=== PATIENT | female | born 1950 | race Caucasian/White ===

== ENCOUNTER 2016-08-02 12:03 | Day surgery (SDC) | payer MEDICARE, MEDICAID ==
[~2016-08-02 12:03] MED LIST: Aspirin Ec PO; BACL20TA PO; CARD120C4 PO; CYCL1TAB29 PO; LACTG PO; LEVO88TA2 PO; LIPI20TA PO; TOPA25TA8 PO; ULTR50TA5 PO
[2016-08-02] MEDS ORDERED: MUPIROCIN 2% OINT 1 APPLIC/GM SYR NASAL SCH (12:30)
[2016-08-02] MEDS ORDERED: NS 1000 ML IV SCH (12:30)
[2016-08-02] MEDS ORDERED: POVIDONE IODINE 5% (ANTISEPSIS KIT) 4 APPLICATIONS EACH NARE SCH (12:30)
[2016-08-02] MEDS ORDERED: CHLORHEXIDINE GLUCONATE 2 % 1 PACK (2 CLOTHS) TOP SCH (12:30)
[2016-08-02] MEDS ORDERED: VANCOMYCIN 1000 MG/NS 250 ML IV SCH ×2 (12:30)
[2016-08-02] MEDS ORDERED: MIDAZOLAM HCL 5 MG/5 ML VIAL ONE (12:47)
[2016-08-02] MEDS ORDERED: MELA1TAB18 PO (12:48)
[2016-08-02] MEDS ORDERED: FURO20TA PO (12:48)
[2016-08-02] MEDS ORDERED: MULT-135 PO (12:48)
[2016-08-02] MEDS ORDERED: LEVO75TA3 PO (12:48)
[2016-08-02] MEDS ORDERED: GABA400C5 PO (12:48)
[2016-08-02] MEDS ORDERED: TOPI1TAB97 PO (12:48)
[2016-08-02] MEDS ORDERED: ELIT100T2 PO (12:48)
[2016-08-02] MEDS ORDERED: ACET500C PO (12:48)
--- NOTE | 2016-08-02 15:20 | MA ---
cc: PAUL JONES MD, BETH A. MD DATE: 08/02/2016 PROCEDURE Loop recorder insertion. PREPROCEDURE DIAGNOSIS CVA/arrhythmia. POSTPROCEDURE DIAGNOSIS Successful loop recorder insertion. DESCRIPTION OF PROCEDURE The patient was brought to the DOC unit in the postabsorptive state. After informed consent was obtained a [employer]tronic Reveal LINQ loop recorder was inserted subcutaneously in the left chest. The patient tolerated the procedure well without any apparent complications. Tachybrady pause and atrial fibrillation detection was enabled. The initial R-wave was 0.2 mV. The serial number was [id number]. Paul Jones MD STEPHANIE/BT /3:11 PM /3:16 PM
== END 2016-08-02 17:45 | disposition home or self-care (01) ==
LOC: HDIC 12:03 → HDOC 12:03
PROVIDERS: ATTEND Nuclear Medicine Nuclear Cardiology
DX: I47.1 Supraventricular tachycardia (principal); I63.9 Cerebral infarction, unspecified; I11.9 Hypertensive heart disease without heart failure
CPT/HCPCS: 33282; C1764; J2250; J3010; J3370; J7030; J7050

== ENCOUNTER → 2016-09-16 | Outpatient (CLI) | payer MEDICARE, MEDICAID ==
[~2016-09-16] MED LIST changes: +ACET500C PO; -BACL20TA PO; +ELIT100T2 PO; +FURO20TA PO; +GABA400C5 PO; -LACTG PO; +LEVO75TA3 PO; -LEVO88TA2 PO; +MAGN100T2 PO; +MELA1TAB18 PO; +MULT-135 PO; -TOPA25TA8 PO; +TOPI1TAB97 PO; +TYLE325T PO
== END ==
LOC: CLAB 10:22
PROVIDERS: ATTEND Internal Medicine Interventional Cardiology
DX: E78.5 Hyperlipidemia, unspecified (principal); I48.91 Unspecified atrial fibrillation
CPT/HCPCS: 36415; 84439; 84443

== ENCOUNTER 2016-12-11 13:00 | Emergency (ER) | payer MEDICARE, MEDICAID ==
[~2016-12-11] VITALS: Ht 162.6 cm; Wt 86.0 kg
[~2016-12-11 13:00] MED LIST changes: -MAGN100T2 PO; -TYLE325T PO
[2016-12-11 13:02] VITALS: BP 145/90; PULSE 99; RESP 24; TEMP 97.9; O2SAT 95
--- NOTE | 2016-12-11 13:13 | PD ---
Physical Exam Time Seen by Provider: 13:10 Narrative 66yo F c/o R shoulder and R buttock pain after slipping on wet floor last night. Denies hitting head, LOC. Is on Warfarin for afib. Denies vomiting. Ambulatory in triage. Patient seen in triage. VS reviewed. Awaiting bed placement. Data Data Last Documented VS Vital Signs Date Time Temp Pulse Resp B/P Pulse Ox O2 Delivery O2 Flow Rate FiO2 12/11/16 13:02 97.9 99 24 145/90 95 Room Air [facility] Supervised Visit with ALEJANDRA: Ritika Hernandez December 11, 2016 13:13
[2016-12-11] MEDS ORDERED: TYLE325T PO (14:21)
[2016-12-11] MEDS ORDERED: MAGN100T2 PO (14:22)
--- NOTE | 2016-12-11 14:42 | PD ---
HPI Chief Complaint: Injury Time Seen by Provider: 14:05 Travel History International Travel<30 days: No Contact w/Intl Traveler<30days: No Traveled to known affect area: No History of Present Illness HPI This 66-year-old woman who slipped and fell on a wet tile floor last night. She hit her head and then landed on her right side. Doesn't think she had any LOC. Biggest complaint is her right elbow and shoulder pain, pain in her right hip. She is a little bit neck and back pain as well. She has chronic pain in the right shoulder limited range of motion. No other complaints. History Past Medical History Narrative Medical Asthma To daily Hypothyroidism Hypertension Fibromyalgia Depression CVA A. fib, on warfarin Tetanus Vaccination: Unknown Influenza Vaccination: Yes Menopausal: Yes : 6 Para: 4 Social History Alcohol Use: Yes (OCCASIONALLY) Tobacco Use: No Allergies-Medications (Allergen,Severity, Reaction): Coded Allergies: Azithromycin (Verified Allergy, Severe, Shortness of Breath, 12/11/16) Benadryl (Unverified Allergy, Severe, 12/11/16) PT STATES HIVES, DIFFICULTY BREATHING Cephalexin (Verified Allergy, Severe, Itching, 12/11/16) Doxycycline (Verified Allergy, Severe, Itching, 12/11/16) Ibuprofen (Verified Allergy, Severe, Rash, 12/11/16) Penicillin (Verified Allergy, Severe, Shortness of Breath, 12/11/16) Sulfa (Verified Allergy, Severe, Rash, 12/11/16) Tetracycline (Verified Allergy, Severe, Shortness of Breath, 12/11/16) Vilanterol (Verified Allergy, Severe, Dizziness, 12/11/16) Fluticasone (Verified Adverse Reaction, Severe, Dizziness, 12/11/16) Ciprofloxacin (Verified Adverse Reaction, Intermediate, Nausea/Vomiting, ) Uncoded Allergies: BROMIDE (Allergy, Severe, Shortness of Breath, 06/21/14) FUROATE (Allergy, Severe, Shortness of Breath, 06/21/14) MONOHYDRATE (Allergy, Severe, Itching, 06/21/14) TIOTROPIUM (Allergy, Severe, Dizziness, 06/21/14) TRIFENATATE (Allergy, Severe, Shortness of Breath, 06/21/14) Reported Meds & Prescriptions Reported Meds & Active Scripts Active Cardizem CD 24 HR (Diltiazem CD 24 HR) 120 Mg Caper 120 Mg PO DAILY Reported Magnesium Citrate 100 Mg Tab 100 Mg PO DAILY PRN Tylenol (Acetaminophen) 325 Mg Tab 325 Mg PO Q6H PRN Melatonin 10 Mg Tab 10 Mg PO HS PRN Levothyroxine (Levothyroxine Sodium) 75 Mcg Tab 75 Mcg PO DAILY Gabapentin 400 Mg Cap 400 Cap PO BID Furosemide 20 Mg Tab 20 Mg PO BID Flexeril (Cyclobenzaprine HCl) 10 Mg Tab 10 Mg PO TID Review of Systems Except as stated in HPI: all other systems reviewed are Neg Physical Exam Narrative GENERAL: Well-appearing 66 year-old woman, no acute distress. SKIN: Focused skin assessment warm/dry. HEAD: Normocephalic. No ecchymosis bruising or evidence of head injury. EYES: Pupils equal and round. No scleral icterus. No injection or drainage. ENT: No nasal bleeding or discharge. Mucous membranes pink and moist. NECK: Some mild tenderness, full range of motion. Doesn't guard the neck at all. CARDIOVASCULAR: Regular rate and rhythm. No murmur appreciated. RESPIRATORY: No accessory muscle use. Clear to auscultation. Breath sounds equal bilaterally. GASTROINTESTINAL: Abdomen soft, non-tender, nondistended. Hepatic and splenic margins not palpable. MUSCULOSKELETAL: No obvious deformities. She has some old surgical scars in the right shoulder. She is limited range of motion of the right shoulder due to pain. No obvious swelling ecchymosis or other evidence of injury. She is a small abrasion on the right elbow but also moves it freely. She does have some tenderness in the right elbow. She has some mild tenderness throughout the lower back. She also some pain and tenderness on the lateral thigh on the right. NEUROLOGICAL: Awake and alert. No obvious cranial nerve deficits. Motor grossly within normal limits. Normal speech. PSYCHIATRIC: Appropriate mood and affect; insight and judgment normal. Data Data Last Documented VS Vital Signs Date Time Temp Pulse Resp B/P Pulse Ox O2 Delivery O2 Flow Rate FiO2 12/11/16 15:03 97.9 94 18 159/[address] Brain W/O Iv Contrast(Rout) (12/11/16 ) Shoulder, Complete (>2vws) (12/11/16 ) Humerus (Min 2vws) (12/11/16 ) Hip, Uni(Ap&Lat) W Ap Pelvis (12/11/16 ) [facility] Medical Decision Making Medical Screen Exam Complete: Yes Emergency Medical Condition: Yes Interpretation(s) CT head: Negative Right shoulder: Glenohumeral joint arthrosis and impingement type change of the proximal humerus. Possible proximal humerus fracture. Moderate before meals joint arthrosis. No significant change. Right humerus: Negative Right hip: Negative Differential Diagnosis Head injury, shoulder injury, other Narrative Course Medical decision making 66 year-old woman slip and fall, chronic pain from fibromyalgia, now worsening pain in her right shoulder and right hip. Looks well. She's on warfarin. We' ll check CT head. I don't think she needs any imaging of her neck or back. We' ll check an x-ray of the shoulder, and x-ray of the hip. Diagnosis Primary Impression: Fall Additional Impressions: Right shoulder pain Right hip pain Additional Instructions: Continue current medications. Follow-up with her primary doctor in the next 2-4 days. Med/Other Pt SpecificInfo: No Change to Meds Disposition: 01 DISCHARGE HOME Condition: Stable Isiah Pinto MD December 11, 2016 14:42
[2016-12-11 15:03] VITALS: BP 159/87; PULSE 94; RESP 18; TEMP 97.9; O2SAT 92
--- NOTE | 2016-12-11 15:39 | RADRPT ---
EXAM DATE/TIME: 12/11/2016 15:12 [facility] COMPARISON: CT BRAIN W/O CONTRAST, June 30, 2016, 17:23. INDICATIONS : Patient fell hitting back of head last night. RADIATION DOSE: 56.77 CTDIvol (mGy) MEDICAL HISTORY : Cardiovascular disease. Seizures. Hypertension.diabetic SURGICAL HISTORY : Appendectomy. Cholecystectomy. ENCOUNTER: Initial ACUITY: 1 day PAIN SCALE: 7/10 LOCATION: cranial TECHNIQUE: Multiple contiguous axial images were obtained of the head. Using automated exposure control and adj ustment of the mA and/or kV according to patient size, radiation dose was kept as low as reasonably a chievable to obtain optimal diagnostic quality images. FINDINGS: CEREBRUM: The ventricles are normal for age. No evidence of midline shift, mass lesion, hemorrhage or acute in farction. No extra-axial fluid collections are seen. Hypodensities in the periventricular white ky er indicating chronic ischemic change POSTERIOR FOSSA: The cerebellum and brainstem are intact. The 4th ventricle is midline. The cerebellopontine angle i s unremarkable. EXTRACRANIAL: The visualized portion of the orbits is intact. SKULL: The calvaria is intact. No evidence of skull fracture. CONCLUSION: No acute intracranial findings. Kavon Carney MD on December 11, 2016 at 15:36 Board Certified Radiologist. This report was verified electronically.
--- NOTE | 2016-12-11 15:48 | RADRPT ---
EXAM DATE/TIME: 12/11/2016 14:42 [facility] COMPARISON: No previous studies available for comparison. INDICATIONS : Right hip pain; fall lastnight. MEDICAL HISTORY : None. SURGICAL HISTORY : None. ENCOUNTER: Initial ACUITY: 1 day PAIN SCORE: 7/10 LOCATION: Right hip FINDINGS: 3 views of the right hip and pelvis. Bone alignment within normal limits. No evidence of fracture. N o evidence of joint narrowing. Moderate-sized enthesophyte at the greater trochanter on the right. CONCLUSION: No evidence of acute fracture. Kavon Carney MD on December 11, 2016 at 15:45 Board Certified Radiologist. This report was verified electronically.
--- NOTE | 2016-12-11 15:52 | RADRPT ---
EXAM DATE/TIME: 12/11/2016 14:45 [facility] COMPARISON: SHOULDER RIGHT COMPLETE (>2VWS), May 30, 2015, 20:31. INDICATIONS : Right shoulder pain; fall lastnight. MEDICAL HISTORY : None. SURGICAL HISTORY : Right shoulder repair. ENCOUNTER: Initial ACUITY: 1 day PAIN SCORE: 7/10 LOCATION: Right shoulder. FINDINGS: 4 views of the right shoulder. Bone alignment is within normal limits. Small glenohumeral joint osteo phytes. No evidence of acute fracture. Mixed lucency and sclerosis of the proximal humerus suggesting chronic impingement type change. Corticated ossicles posterior to the glenohumeral joint unchanged. Moderate arthritic findings of the acromioclavicular joint. CONCLUSION: 1. Glenohumeral joint arthrosis and impingement type change of the proximal humerus. 2. Possible old proximal humerus fracture. 3. Moderate acromioclavicular joint arthrosis. 4. No significant interval change from 05/30/2015 study. Kavon Carney MD on December 11, 2016 at 15:46 Board Certified Radiologist. This report was verified electronically.
--- NOTE | 2016-12-11 15:53 | RADRPT ---
EXAM DATE/TIME: 12/11/2016 14:47 [facility] COMPARISON: No previous studies available for comparison. INDICATIONS : Right humerus pain; fall lastnight. MEDICAL HISTORY : None. SURGICAL HISTORY : Right shoulder repair. ENCOUNTER: Initial ACUITY: 1 day PAIN SCORE: 7/10 LOCATION: Right humerus. FINDINGS: 3 views of the right humerus. Bone alignment within normal limits. No evidence of acute fracture. Co rticated 2.9 cm ossicle posterior to the humeral head may represent intra-articular osteochondral bod y. CONCLUSION: No evidence of acute fracture. Kavon Carney MD on December 11, 2016 at 15:50 Board Certified Radiologist. This report was verified electronically.
== END 2016-12-11 16:20 | disposition home or self-care (01) ==
LOC: NEPD 13:00
DX: M25.511 Pain in right shoulder (principal); M25.551 Pain in right hip; I48.91 Unspecified atrial fibrillation; Z79.01 Long term (current) use of anticoagulants; E03.9 Hypothyroidism, unspecified; I10 Essential (primary) hypertension; M79.7 Fibromyalgia; J45.909 Unspecified asthma, uncomplicated; S50.311A Abrasion of right elbow, initial encounter; W01.0XXA Fall on same level from slipping, tripping and stumbling without subsequent striking against object, initial encounter; Y93.9 Activity, unspecified; Y92.9 Unspecified place or not applicable; Y99.8 Other external cause status
CPT/HCPCS: 70450; 73030; 73060; 73502; 99284

== ENCOUNTER 2017-03-06 13:14 | Inpatient (IN) | payer MEDICARE, MEDICAID ==
[~2017-03-06] VITALS: Ht 160 cm; Wt 92.1 kg
[~2017-03-06 13:14] MED LIST changes: -ACET500C PO; -Aspirin Ec PO; -ELIT100T2 PO; -LIPI20TA PO; +MAGN100T2 PO; -MULT-135 PO; -TOPI1TAB97 PO; +TYLE325T PO; -ULTR50TA5 PO
[2017-03-06 13:22] VITALS: BP 180/98; PULSE 114; RESP 18; TEMP 98.4; O2SAT 98
--- NOTE | 2017-03-06 13:27 | PD ---
Physical Exam Time Seen by Provider: 13:24 Narrative 66yo F c/o "can't see properly" out of her left eye, peripheral vision, since 1230 today. + left eye pain and ROBERSON. Denies vomiting. Denies focal deficits or weakness. Patient seen in triage. VS reviewed. Awaiting bed placement. Data Data Last Documented VS Vital Signs Date Time Temp Pulse Resp B/P (MAP) Pulse Ox O2 Delivery O2 Flow Rate FiO2 03/06/17 13:22 98.4 114 18 180/98 (125) 98 MDM Supervised Visit with ALEJANDRA: Ritika Hernandez Mar 06, 2017 13:27
--- NOTE | 2017-03-06 13:35 | PD ---
HPI Chief Complaint: Neuro Symptoms/ Deficits Time Seen by Provider: 13:35 Travel History International Travel<30 days: No Contact w/Intl Traveler<30days: No Traveled to known affect area: No History of Present Illness HPI 66-year-old female with history as remote CVA in 2004, A. fib, on Coumadin, hypertension, diabetes presents to the emergency department for evaluation of peripheral vision changes of the left eye. Patient states symptoms began around noon today. She had flashing and overlaying colors with limited vision. She states she sat there and blink her eyes a few times and the visual disturbances resolved however she feels as though her peripheral vision is still decreased. She states she had an associated left-sided headache. She denies any nausea or vomiting. No other focal deficits or weakness. No chest tightness. Patient states that her INR has been subtherapeutic. She has no other symptoms to report this time. PFSH Past Medical History Hx Anticoagulant Therapy: Yes (COUMADIN) Arthritis: Yes Asthma: Yes Blood Disorders: No Anxiety: No Depression: Yes Heart Rhythm Problems: Yes (LOOP RECORDER/DR RICE) Cancer: No Cardiac Catheterization: No Cardiovascular Problems: Yes (AFIB, HTN) High Cholesterol: Yes Chemotherapy: No Chest Pain: No Congestive Heart Failure: No COPD: No Cerebrovascular Accident: Yes (2004) Diabetes: Yes Patient Takes Glucophage: No Diminished Hearing: No Endocrine: Yes Gastrointestinal Disorders: No Genitourinary: No Hiatal Hernia: Yes Heparin Induced Thrombocytopen: No Herniated Disk: No (SCIATICA/BULGING DISC LOWER BACK HX) Hypertension: Yes Immune Disorder: Yes Implanted Vascular Access Dvce: No Musculoskeletal: Yes Neurologic: Yes (STROKE IN THE PAST-05) Psychiatric: Yes Reproductive: No Respiratory: Yes Pneumonia: Yes Seizures: Yes Sleep Apnea: No Thyroid Disease: Yes Menopausal: Yes : 6 Para: 4 Miscarriage: 2 Tubal Ligation: Yes Past Surgical History Abdominal Surgery: Yes (HIATAL HERNIA REPAIR) Appendectomy: Yes Cholecystectomy: Yes Coronary Artery Bypass Graft: No Gynecologic Surgery: Yes (RIGHT OVARY REMOVED) Hysterectomy: No Other Surgery: Yes (LUIZ CARP RELEASE, L OVARY, R SHOULDER,R KNEE, R SHOULDER REPAIR) Family History Family Myocardial Infarction: Yes Social History Alcohol Use: Yes (OCCASIONALLY) Tobacco Use: No Substance Use: No Allergies-Medications (Allergen,Severity, Reaction): Coded Allergies: Sulfa (Sulfonamide Antibiotics) (Unverified Allergy, Severe, Rash, 03/06/17 ) azithromycin (Unverified Allergy, Severe, Shortness of Breath, 03/06/17) cephalexin (Unverified Allergy, Severe, Itching, 03/06/17) diphenhydramine (Unverified Allergy, Severe, 03/06/17) PT STATES HIVES, DIFFICULTY BREATHING doxycycline (Unverified Allergy, Severe, Shortness of Breath, 03/06/17) ibuprofen (Unverified Allergy, Severe, Rash, 03/06/17) minocycline (Unverified Allergy, Severe, Shortness of Breath, 03/06/17) penicillin G (Unverified Allergy, Severe, Shortness of Breath, 03/06/17) tigecycline (Unverified Allergy, Severe, Shortness of Breath, 03/06/17) vilanterol (Unverified Allergy, Severe, Dizziness, 03/06/17) fluticasone (Unverified Adverse Reaction, Severe, Dizziness, 03/06/17) fluticasone furoate (Unverified Adverse Reaction, Severe, Dizziness, ) salmeterol (Unverified Adverse Reaction, Severe, Dizziness, 03/06/17) ciprofloxacin (Unverified Adverse Reaction, Intermediate, Nausea/Vomiting , 03/06/17) Uncoded Allergies: BROMIDE (Allergy, Severe, Shortness of Breath, 06/21/14) FUROATE (Allergy, Severe, Shortness of Breath, 06/21/14) MONOHYDRATE (Allergy, Severe, Itching, 06/21/14) TIOTROPIUM (Allergy, Severe, Dizziness, 06/21/14) TRIFENATATE (Allergy, Severe, Shortness of Breath, 06/21/14) Reported Meds & Prescriptions Reported Meds & Active Scripts Active Reported Warfarin 5 Mg Tab 5 Mg PO DAILY Warfarin 7.5 Mg Tab 7.5 Mg PO DAILY Magnesium Citrate 100 Mg Tab 100 Mg PO DAILY PRN Tylenol (Acetaminophen) 325 Mg Tab 325 Mg PO Q6H PRN Melatonin 10 Mg Tab 10 Mg PO HS PRN Levothyroxine (Levothyroxine Sodium) 75 Mcg Tab 75 Mcg PO DAILY Gabapentin 400 Mg Cap 400 Cap PO BID Furosemide 20 Mg Tab 20 Mg PO BID Flexeril (Cyclobenzaprine HCl) 10 Mg Tab 10 Mg PO TID Review of Systems Except as stated in HPI: all other systems reviewed are Neg Physical Exam Narrative GENERAL: Well-nourished female patient, in no acute distress. SKIN: Focused skin assessment warm/dry. HEAD: Atraumatic. Normocephalic. EYES: Pupils equal and round. No scleral icterus. No injection or drainage. EOMI. PERRLA. On confrontation tests, patient's peripheral vision is limited in the distal mid to far peripheral field of vision of the left eye. Otherwise within normal limits. Sandor-Pen pressures left eye 11, 11, 10, right eye 13, 11 , 10 ENT: No nasal bleeding or discharge. Mucous membranes pink and moist. NECK: Trachea midline. No JVD. CARDIOVASCULAR: Regular rate and rhythm. No murmur appreciated. RESPIRATORY: No accessory muscle use. Clear to auscultation. Breath sounds equal bilaterally. GASTROINTESTINAL: Abdomen soft, non-tender, nondistended. Hepatic and splenic margins not palpable. MUSCULOSKELETAL: No obvious deformities. No clubbing. No cyanosis. No edema. Equal strength bilateral extremities. Negative pronator drift. NEUROLOGICAL: Awake and alert. No obvious cranial nerve deficits except for subjective sensation alteration on the left nasal fold and left lip.. Motor grossly within normal limits. Normal speech. PSYCHIATRIC: Appropriate mood and affect; insight and judgment normal. Data Data Last Documented VS Vital Signs Date Time Temp Pulse Resp B/P (MAP) Pulse Ox O2 Delivery O2 Flow Rate FiO2 03/06/17 13:54 99 03/06/17 13:22 98.4 114 18 Orders Orders Electrocardiogram (03/06/17 13:36) Prothrombin Time / Inr (Pt) (03/06/17 13:36) Act Partial Throm Time (Ptt) (03/06/17 13:36) Complete Blood Count With Diff (03/06/17 13:36) Basic Metabolic Panel (Bmp) (03/06/17 13:36) Urinalysis - C+S If Indicated (03/06/17 13:36) Ct Brain W/O Iv Contrast(Rout) (03/06/17 13:36) Ecg Monitoring (03/06/17 13:36) Iv Access Insert/Monitor (03/06/17 13:36) Oximetry (03/06/17 13:36) Sodium Chloride 0.9% Flush (Ns Flush) (03/06/17 13:45) Westergren Sedimentation Rate (03/06/17 13:36) ^ Other Nursing Orders (03/06/17 13:36) Proparacaine 0.5% Opth Soln (Alcaine 0.5 (03/06/17 13:45) Admit Order (Ed Use Only) (03/06/17 16:27) Labs Laboratory Tests Test 03/06/17 13:40 White Blood Count 8.7 TH/MM3 Red Blood Count 5.06 MIL/MM3 Hemoglobin 14.9 GM/DL Hematocrit 45.7 % Mean Corpuscular Volume 90.2 FL Mean Corpuscular Hemoglobin 29.4 PG Mean Corpuscular Hemoglobin Concent 32.6 % Red Cell Distribution Width 12.6 % Platelet Count 246 TH/MM3 Mean Platelet Volume 8.1 FL Neutrophils (%) (Auto) 47.5 % Lymphocytes (%) (Auto) 42.2 % Monocytes (%) (Auto) 7.7 % Eosinophils (%) (Auto) 2.1 % Basophils (%) (Auto) 0.5 % Neutrophils # (Auto) 4.1 TH/MM3 Lymphocytes # (Auto) 3.7 TH/MM3 Monocytes # (Auto) 0.7 TH/MM3 Eosinophils # (Auto) 0.2 TH/MM3 Basophils # (Auto) 0.0 TH/MM3 CBC Comment DIFF FINAL Differential Comment Erythrocyte Sedimentation Rate 16 mm/hr Prothrombin Time 18.1 SEC Prothromb Time International Ratio 1.6 RATIO Activated Partial Thromboplast Time 34.9 SEC Blood Urea Nitrogen 16 MG/DL Creatinine 1.16 MG/DL Random Glucose 158 MG/DL Calcium Level 9.7 MG/DL Sodium Level 139 MEQ/L Potassium Level 3.6 MEQ/L Chloride Level 104 MEQ/L Carbon Dioxide Level 27.7 MEQ/L Anion Gap 7 MEQ/L Estimat Glomerular Filtration Rate 47 ML/MIN [facility] Medical Decision Making Medical Screen Exam Complete: Yes Emergency Medical Condition: Yes Medical Record Reviewed: Yes Differential Diagnosis TIA versus CVA versus electrolyte abnormality versus neuralgia versus migraine with or without aura versus diabetic retinopathy versus temporal arteritis versus acute glaucoma Narrative Course 66-year-old female presents to emergency department for evaluation. Patient is reporting left-sided headache with left-sided peripheral visual loss. On confrontation test, patient does have peripheral vision except in the far peripheral region. She has subjective numbness and tingling on the left nasal fold and left lip. Otherwise cranial nerves are without acute abnormality. Pronator drift is negative. Patient does have history of TIA and CVA. Based on assessment, resolution of complete peripheral blindness based on examination , associated headache, use of anticoagulation therapy, stroke alert was not called. Laboratory Tests Test 03/06/17 13:40 White Blood Count 8.7 TH/MM3 Red Blood Count 5.06 MIL/MM3 Hemoglobin 14.9 GM/DL Hematocrit 45.7 % Mean Corpuscular Volume 90.2 FL Mean Corpuscular Hemoglobin 29.4 PG Mean Corpuscular Hemoglobin Concent 32.6 % Red Cell Distribution Width 12.6 % Platelet Count 246 TH/MM3 Mean Platelet Volume 8.1 FL Neutrophils (%) (Auto) 47.5 % Lymphocytes (%) (Auto) 42.2 % Monocytes (%) (Auto) 7.7 % Eosinophils (%) (Auto) 2.1 % Basophils (%) (Auto) 0.5 % Neutrophils # (Auto) 4.1 TH/MM3 Lymphocytes # (Auto) 3.7 TH/MM3 Monocytes # (Auto) 0.7 TH/MM3 Eosinophils # (Auto) 0.2 TH/MM3 Basophils # (Auto) 0.0 TH/MM3 CBC Comment DIFF FINAL Differential Comment Erythrocyte Sedimentation Rate 16 mm/hr Prothrombin Time 18.1 SEC Prothromb Time International Ratio 1.6 RATIO Activated Partial Thromboplast Time 34.9 SEC Blood Urea Nitrogen 16 MG/DL Creatinine 1.16 MG/DL Random Glucose 158 MG/DL Calcium Level 9.7 MG/DL Sodium Level 139 MEQ/L Potassium Level 3.6 MEQ/L Chloride Level 104 MEQ/L Carbon Dioxide Level 27.7 MEQ/L Anion Gap 7 MEQ/L Estimat Glomerular Filtration Rate 47 ML/MIN Last Impressions Head CT 03/06/17 1336 Signed Impressions: Service Date/Time: February 14:46 - CONCLUSION: 1. No acute intracranial abnormality identified. 2. Stable compared to previous dated 12/11/16. Eric Fields MD I have discussed the patient my attending physician who agrees the patient would benefit from further evaluation of these symptoms/TIA workup. I discussed the patient with Dr. Lai. Patient will be admitted at this time. Judith Barber Mar 06, 2017 13:35
[2017-03-06] MEDS ORDERED: WARF-23 PO (13:38)
[2017-03-06] MEDS ORDERED: WARF-21 PO (13:38)
[2017-03-06] MEDS ORDERED: PROPARACAINE HCL 0.5% OPHT SOLN 15 ML BTL EACH EYE ONE (13:45)
[2017-03-06] MEDS ORDERED: SODIUM CHLORIDE 0.9% FLUSH 10 ML FLUSH IVF PRN (13:45)
[2017-03-06 13:54] VITALS: O2SAT 99
[2017-03-06 14:05] LABS: AUTOMATED NEUTROPHIL # 4.1 TH/MM3 (1.8-7.7); BASOPHIL % 0.5 % (0.0-2.0); EOSINOPHIL # 0.2 TH/MM3 (0-0.4); EOSINOPHIL % 2.1 % (0.0-4.0); HEMATOCRIT 45.7 % (35.0-46.0); HEMO FLAGS DIFF FINAL; LYMPH % 42.2 % (9.0-44.0); LYMPHOCYTE # 3.7 TH/MM3 (1.0-4.8); MEAN CELL VOLUME 90.2 FL (80.0-100.0); MEAN CORPUSCULAR HEMOGLOBIN 29.4 PG (27.0-34.0); MEAN CORPUSCULAR HGB CONC 32.6 % (32.0-36.0); MONO % 7.7 % (0.0-8.0); NEUT % 47.5 % (16.0-70.0); PLATELET COUNT 246 TH/MM3 (150-450); RED BLOOD COUNT 5.06 MIL/MM3 (4.00-5.30); RED CELL DISTRIBUTION WIDTH 12.6 % (11.6-17.2); WHITE BLOOD COUNT 8.7 TH/MM3 (4.0-11.0)
[2017-03-06 14:17] LABS: APTT (PATIENT) 34.9 SEC (24.3-30.1); INTERNATIONAL NORMALIZED RATIO 1.6 RATIO; PROTHROMBIN TIME - PATIENT 18.1 SEC (9.8-11.6)
[2017-03-06 14:31] LABS: BICARBONATE 27.7 MEQ/L (21.0-32.0); POTASSIUM 3.6 MEQ/L (3.5-5.1)
--- NOTE | 2017-03-06 15:13 | RADRPT ---
EXAM DATE/TIME: 03/06/2017 14:46 [facility] COMPARISON: CT BRAIN W/O CONTRAST, December 11, 2016, 15:12. INDICATIONS : Vision loss on left lateral side with pain. RADIATION DOSE: 56.77 CTDIvol (mGy) MEDICAL HISTORY : Seizures. Hypertension. AFIB SURGICAL HISTORY : None. ENCOUNTER: Initial ACUITY: 1 day PAIN SCALE: 2/10 LOCATION: Left lateral eye TECHNIQUE: Multiple contiguous axial images were obtained of the head. Using automated exposure control and adj ustment of the mA and/or kV according to patient size, radiation dose was kept as low as reasonably a chievable to obtain optimal diagnostic quality images. DICOM format image data is available electro nically for review and comparison. FINDINGS: CEREBRUM: The ventricles are normal for age. No evidence of midline shift, mass lesion, hemorrhage or acute in farction. No extra-axial fluid collections are seen. POSTERIOR FOSSA: The cerebellum and brainstem are intact. The 4th ventricle is midline. The cerebellopontine angle i s unremarkable. EXTRACRANIAL: The visualized portion of the orbits is intact. SKULL: The calvaria is intact. No evidence of skull fracture. CONCLUSION: 1. No acute intracranial abnormality identified. 2. Stable compared to previous dated 12/11/16. Eric Fields MD on March 06, 2017 at 15:11 Board Certified Radiologist. This report was verified electronically.
[2017-03-06] MEDS ORDERED: SODIUM CHLORIDE 0.9% FLUSH 5 ML FLUSH IV FLUSH PRN (16:30)
[2017-03-06] MEDS ORDERED: ENALAPRILAT 1.25 MG/ML VIAL IV PRN (16:30)
[2017-03-06] MEDS ORDERED: GLUCAGON 1 MG/ML VIAL OTHER PRN (16:30)
[2017-03-06] MEDS ORDERED: DEXTROSE 50% IN WATER 50 ML VIAL(D50) IV PUSH PRN (16:30)
[2017-03-06 16:59] VITALS: O2SAT 95
[2017-03-06 17:45] VITALS: BP 139/74; PULSE 99; RESP 17; TEMP 98.1; O2SAT 93
--- NOTE | 2017-03-06 18:27 | HHI.HP ---
HPI Service [facility] Primary Care Physician No Primary Care Physician Admission Diagnosis VISUAL CHANGES; FACIAL paresthesias, subtherapeutic INR Diagnoses: Chief Complaint: Visual changes, peripheral Travel History International Travel<30 Days: No Contact w/Intl Traveler <30 Da: No Traveled to Known Affected Are: No History of Present Illness 66 y/o female with a history of CVA 2016 on Coumadin, HTN, Afib, hypothyroid, and UTI's presented to the ED with complaints of peripheral vision loss on her left side. Patient states it began about noon today and she was unable to see to the left, she states it looked like images were overlapping, and light flashing. She also had associated numbness on her left face with tingling. She denies any weakness in her upper or lower extremities. She denies any chest pain, shortness of breath, fever or chills. She states she follows with Dr. Candelario for Coumadin levels. Review of Systems Except as stated in HPI: all other systems reviewed are Neg Past Family Social History Past Medical History CVA 2016 on Coumadin Hypertension A. fib UTIs Hypothyroidism Past Surgical History Hiatal hernia Right ovary resected Bilateral carpal tunnel Loop recorder Right shoulder repair 2 Right knee repair Cholecystectomy Appendectomy Right elbow repair Right ankle repair Tubal ligation Reported Medications Reported Meds & Active Scripts Active Reported Warfarin 5 Mg Tab 5 Mg PO DAILY Warfarin 7.5 Mg Tab 7.5 Mg PO DAILY Magnesium Citrate 100 Mg Tab 100 Mg PO DAILY PRN Tylenol (Acetaminophen) 325 Mg Tab 325 Mg PO Q6H PRN Melatonin 10 Mg Tab 10 Mg PO HS PRN Levothyroxine (Levothyroxine Sodium) 75 Mcg Tab 75 Mcg PO DAILY Gabapentin 400 Mg Cap 400 Cap PO BID Furosemide 20 Mg Tab 20 Mg PO BID Flexeril (Cyclobenzaprine HCl) 10 Mg Tab 10 Mg PO TID Allergies: Coded Allergies: Sulfa (Sulfonamide Antibiotics) (Unverified Allergy, Severe, Rash, 03/06/17 ) azithromycin (Unverified Allergy, Severe, Shortness of Breath, 03/06/17) cephalexin (Unverified Allergy, Severe, Itching, 03/06/17) diphenhydramine (Unverified Allergy, Severe, 03/06/17) PT STATES HIVES, DIFFICULTY BREATHING doxycycline (Unverified Allergy, Severe, Shortness of Breath, 03/06/17) ibuprofen (Unverified Allergy, Severe, Rash, 03/06/17) minocycline (Unverified Allergy, Severe, Shortness of Breath, 03/06/17) penicillin G (Unverified Allergy, Severe, Shortness of Breath, 03/06/17) tigecycline (Unverified Allergy, Severe, Shortness of Breath, 03/06/17) vilanterol (Unverified Allergy, Severe, Dizziness, 03/06/17) fluticasone (Unverified Adverse Reaction, Severe, Dizziness, 03/06/17) fluticasone furoate (Unverified Adverse Reaction, Severe, Dizziness, ) salmeterol (Unverified Adverse Reaction, Severe, Dizziness, 03/06/17) ciprofloxacin (Unverified Adverse Reaction, Intermediate, Nausea/Vomiting , 03/06/17) Uncoded Allergies: BROMIDE (Allergy, Severe, Shortness of Breath, 06/21/14) FUROATE (Allergy, Severe, Shortness of Breath, 06/21/14) MONOHYDRATE (Allergy, Severe, Itching, 06/21/14) TIOTROPIUM (Allergy, Severe, Dizziness, 06/21/14) TRIFENATATE (Allergy, Severe, Shortness of Breath, 06/21/14) Active Ordered Medications Current Medications Medications (Trade) Dose Ordered Sig/Christal Route Start Time Stop Time Status Last Admin (NS Flush) 2 ml UNSCH PRN IVF 03/06/17 13:45 (NS Flush) 2 ml BID IV FLUSH 03/06/17 21:00 UNV (NS Flush) 2 ml UNSCH PRN IV FLUSH 03/06/17 16:30 UNV (Vasotec Inj) 1.25 mg Q4H PRN IV 03/06/17 16:30 UNV (Aspirin Chew) 162 mg DAILY PO 03/06/17 16:30 UNV (Lovenox Inj) 90 mg Q12H SQ 03/06/17 16:30 UNV (Lipitor) 10 mg HS PO 03/06/17 21:00 UNV (NovoLOG SUPPLEMENTAL SCALE) 1 ACHS SQ 03/06/17 21:00 UNV (D50w (Vial) Inj) 50 ml UNSCH PRN IV PUSH 03/06/17 16:30 UNV (Glucagon Inj) 1 mg UNSCH PRN OTHER 03/06/17 16:30 UNV Family History Mom: Hypertension, heart disease, COPD Amarjit: Diabetes Social History Tobacco use: Denies Alcohol use: Occasionally Illicit drug use: Denies Physical Exam Vital Signs Vital Signs Date Time Temp Pulse Resp B/P (MAP) Pulse Ox O2 Delivery O2 Flow Rate FiO2 03/06/17 16:59 95 21 03/06/17 13:54 99 03/06/17 13:22 98.4 114 18 180/98 (125) 98 Physical Exam GENERAL: This is a well-nourished, well-developed patient, in no apparent distress. SKIN: No rashes, ecchymoses or lesions. Cool and dry. HEAD: Atraumatic. Normocephalic. EYES: Pupils equal round and reactive. Left peripheral vision loss ENT: Nose without bleeding, purulent drainage or septal hematoma. Airway patent. NECK: Trachea midline. No JVD or lymphadenopathy. CARDIOVASCULAR: Regular rate and rhythm without murmurs, gallops, or rubs. RESPIRATORY: Clear to auscultation. Breath sounds equal bilaterally. No wheezes , rales, or rhonchi. GASTROINTESTINAL: Abdomen soft, non-tender, nondistended. No hepato-splenomegaly , or palpable masses. No guarding. MUSCULOSKELETAL: Extremities without clubbing, cyanosis, or edema. No joint tenderness, effusion, or edema noted. No calf tenderness. NEUROLOGICAL: Awake and alert. Left facial numbness, no facial droop. Motor and sensory grossly within normal limits. Five out of 5 muscle strength in all muscle groups. Normal speech. Laboratory Laboratory Tests Test 03/06/17 13:40 White Blood Count 8.7 Red Blood Count 5.06 Hemoglobin 14.9 Hematocrit 45.7 Mean Corpuscular Volume 90.2 Mean Corpuscular Hemoglobin 29.4 Mean Corpuscular Hemoglobin Concent 32.6 Red Cell Distribution Width 12.6 Platelet Count 246 Mean Platelet Volume 8.1 Neutrophils (%) (Auto) 47.5 Lymphocytes (%) (Auto) 42.2 Monocytes (%) (Auto) 7.7 Eosinophils (%) (Auto) 2.1 Basophils (%) (Auto) 0.5 Neutrophils # (Auto) 4.1 Lymphocytes # (Auto) 3.7 Monocytes # (Auto) 0.7 Eosinophils # (Auto) 0.2 Basophils # (Auto) 0.0 CBC Comment DIFF FINAL Differential Comment Erythrocyte Sedimentation Rate 16 Prothrombin Time 18.1 Prothromb Time International Ratio 1.6 Activated Partial Thromboplast Time 34.9 Blood Urea Nitrogen 16 Creatinine 1.16 Random Glucose 158 Calcium Level 9.7 Sodium Level 139 Potassium Level 3.6 Chloride Level 104 Carbon Dioxide Level 27.7 Anion Gap 7 Estimat Glomerular Filtration Rate 47 Result Diagram: 03/06/17 1340 03/06/17 1340 Imaging Last Impressions Head CT 03/06/17 1336 Signed Impressions: Service Date/Time: , March 06, 2017 14:46 - CONCLUSION: 1. No acute intracranial abnormality identified. 2. Stable compared to previous dated 12/11/16. Eric Fields MD Capsangeethai VTE Risk Assessment Caprini VTE Risk Assessment: Mod/High Risk (score >= 2) Caprini Risk Assessment Model Point Value = 1 Point Value = 2 Point Value = 3 Point Value = 5 Age 41-60 Minor surgery BMI > 25 kg/m2 Swollen legs Varicose veins or History of unexplained or recurrent spontaneous Oral contraceptives or hormone replacement Sepsis (< 1 month) Serious lung disease, including pneumonia (< 1 month) Abnormal pulmonary function Acute myocardial infarction Congestive heart failure (< 1 month) History of inflammatory bowel disease Medical patient at bed rest Age 61-74 Arthroscopic surgery Major open surgery (> 45 min) Laparoscopic surgery (> 45 min) Malignancy Confined to bed (> 72 hours) Immobilizing plaster cast Central venous access Age >= 75 History of VTE Family history of VTE Factor V Leiden Prothrombin [id number] Lupus anticoagulant Anticardiolipin antibodies Elevated serum homocysteine Heparin-induced thrombocytopenia Other congenital or acquired thrombophilia Stroke (< 1 month) Elective arthroplasty Hip, pelvis, or leg fracture Acute spinal cord injury (< 1 month) Prophylaxis Regimen Total Risk Factor Score Risk Level Prophylaxis Regimen 0-1 Low Early ambulation 2 Moderate Order ONE of the following: *Sequential Compression Device (SCD) *Heparin 5000 units SQ BID 3-4 Higher Order ONE of the following medications: *Heparin 5000 units SQ TID *Enoxaparin/Lovenox 40 mg SQ daily (WT < 150 kg, CrCl > 30 mL/min) *Enoxaparin/Lovenox 30 mg SQ daily (WT < 150 kg, CrCl > 10-29 mL/min) *Enoxaparin/Lovenox 30 mg SQ BID (WT < 150 kg, CrCl > 30 mL/min) AND/OR *Sequential Compression Device (SCD) 5 or more Highest Order ONE of the following medications: *Heparin 5000 units SQ TID (Preferred with Epidurals) *Enoxaparin/Lovenox 40 mg SQ daily (WT < 150 kg, CrCl > 30 mL/min) *Enoxaparin/Lovenox 30 mg SQ daily (WT < 150 kg, CrCl > 10-29 mL/min) *Enoxaparin/Lovenox 30 mg SQ BID (WT < 150 kg, CrCl > 30 mL/min) AND *Sequential Compression Device (SCD) Assessment and Plan Problem List: (1) TIA (transient ischemic attack) ICD Code: G45.9 - Transient cerebral ischemic attack, unspecified Status: Acute (2) Subtherapeutic international normalized ratio (INR) ICD Code: R79.1 - Abnormal coagulation profile (3) Hypothyroid ICD Code: E03.9 - Hypothyroidism Status: Chronic (4) CKD (chronic kidney disease), stage III ICD Code: N18.3 - Chronic kidney disease, stage 3 (moderate) Status: Chronic Assessment and Plan 66 y/o female with a history of CVA 2016 on Coumadin, HTN, Afib, hypothyroid, and UTI's presented to the ED with complaints of peripheral vision loss on her left side. TIA, rule out CVA, patient with peripheral vision loss and facial numbness and tingling and headaches CT head reviewed and is unremarkable -Consult neurology for recommendations -MRI ordered -Allow permissive hypertension -Neuro checks -Tramadol when necessary by mouth for headaches -Carotid ultrasound ordered: 2016 carotid ultrasound was negative -2-D echo ordered: EF in 2016 was 55-60% -PT, OT -Lipid panel ordered Subtherapeutic INR, patient is on Coumadin, INR 1.6 -Hold Coumadin for now, Start Lovenox, await neurology -INR in a.m. Hypothyroid, chronic -Restart home medications -TSH ordered CKD, chronic creatinine 1.1, at baseline -Resume home medications Lasix -Avoid nephrotoxins DVT prophylaxis: Lovenox Discussed Condition With Patient Physician Certification 2 Midnight Certification Type: Admission for Inpatient Services Order for Inpatient Services The services are ordered in accordance with Medicare regulations or non- Medicare payer requirements, as applicable. In the case of services not specified as inpatient-only, they are appropriately provided as inpatient services in accordance with the 2-midnight benchmark. Estimated LOS (days): 2 days is the estimated time the patient will need to remain in the hospital, assuming treatment plan goals are met and no additional complications. Post-Hospital Plan: Home Sasha Liriano Mar 06, 2017 18:27 Trang Lia MD Mar 06, 2017 20:01
[2017-03-06] MEDS: ENOXAPARIN SODIUM 100 MG/ML SYRINGE SQ SCH (19:14)
[2017-03-06] MEDS: traMADol HCL 50 MG TAB PO PRN (19:15)
[2017-03-06] MEDS: ASPIRIN 81 MG CHEW TAB PO SCH (19:15)
[2017-03-06 20:00] VITALS: BP 127/79; PULSE 104; RESP 20; TEMP 97.3; O2SAT 92
[2017-03-06] MEDS: GABAPENTIN 400 MG CAP PO SCH (20:58)
[2017-03-06] MEDS: SODIUM CHLORIDE 0.9% FLUSH 5 ML FLUSH IV FLUSH SCH (20:59)
[2017-03-06] MEDS: ATORVASTATIN 10 MG TAB PO SCH (20:59)
[2017-03-06] MEDS: FUROSEMIDE 20 MG TAB PO SCH (20:59)
[2017-03-06] MEDS: INSULIN ASPART SUPPLEMENTAL SCALE SQ SCH (21:00)
--- NOTE | 2017-03-06 21:19 | RADRPT ---
EXAM DATE/TIME: 03/06/2017 19:51 [facility] COMPARISON: US CAROTID ARTERIES, July 01, 2016, 9:56. INDICATIONS : Transient ischemic attack. MEDICAL HISTORY : Stroke. Hypertension. Hypercholesterolemia. Thyroid disease. Upper dentures. Seizures. Atrial Fibrill ation. Anticoagulant therapy, coumadin. Irregular heartbeat. Asthma. Hiatal hernia. Diabetes. Depress ion. SURGICAL HISTORY : Appendectomy. Cholecystectomy. Tubal ligation. Hiatal hernia repair. Right oopherectomy. Right should er repair. ENCOUNTER: Subsequent ACUITY: 1 week PAIN SCORE: 0/10 LOCATION: Bilateral neck PEAK SYSTOLIC VELOCITIES (cm/sec): ICA/CCA RATIO: Right: 1.0 Left: 1.0 ICA: Right: 124.3 Left: 91.0 CCA: Right: 123.9 Left: 89.2 ECA: Right: 101.6 Left: 79.4 VERTEBRAL: Right: 97.3 antegrade Left: 61.8 antegrade Elevated flow velocities and ICA/CCA ratios have been found to correlate with increased degrees of vessel stenosis, calculated as percentage of diameter relative to a normal segment of distal ICA/CCA FINDINGS: RIGHT CAROTID: No significant stenosis is visualized. There is mild calcified plaque in the carotid bulb. This is a stable finding. The waveforms are within normal limits. LEFT CAROTID: No significant stenosis is visualized. No significant atherosclerotic disease. The waveforms are wit hin normal limits. VERTEBRAL ARTERIES: Antegrade flow is seen in both vertebral arteries. MISCELLANEOUS: None. CONCLUSION: 1. Stable minimal calcified plaque in the right carotid bulb. No significant stenosis is present with in either internal carotid artery. 2. There is antegrade flow in both vertebral arteries. Radu Charles MD on March 06, 2017 at 21:16 Board Certified Radiologist. This report was verified electronically.
[2017-03-06 22:32] LABS: HEMOGLOBIN A1a 1.4 %; HEMOGLOBIN A1b 1.2 %; HEMOGLOBIN Ao 78.8 %; HEMOGLOBIN F 1.5 %; HEMOGLOBIN LA1C 2.7 %; HEMOGLOBIN P3 7.3 %
[2017-03-07] VITALS (9 sets, daily range): BP systolic 130–150; BP diastolic 75–83; PULSE 87–121; RESP 16–20; TEMP 97.6–98.8; O2SAT 92–100
[2017-03-07] MEDS: LEVOTHYROXINE SODIUM 75 MCG TAB PO SCH (05:51)
[2017-03-07] MEDS: ENOXAPARIN SODIUM 100 MG/ML SYRINGE SQ SCH ×2 (05:51→16:51)
[2017-03-07] MEDS: INSULIN ASPART SUPPLEMENTAL SCALE SQ SCH ×4 (05:55→22:05)
[2017-03-07] MEDS: FUROSEMIDE 20 MG TAB PO SCH ×2 (08:54→22:13)
[2017-03-07] MEDS: ASPIRIN 81 MG CHEW TAB PO SCH (08:56)
[2017-03-07] MEDS: GABAPENTIN 400 MG CAP PO SCH ×2 (08:56→22:13)
[2017-03-07] MEDS: SODIUM CHLORIDE 0.9% FLUSH 5 ML FLUSH IV FLUSH SCH ×2 (08:56→22:14)
[2017-03-07] MEDS ORDERED: methylPREDNISolone SOD SUCC 40 MG/1 ML VIAL IV SCH (09:00)
[2017-03-07] MEDS: FAMOTIDINE 20 MG TAB PO SCH ×2 (10:00→22:13)
[2017-03-07 10:03] LABS: INTERNATIONAL NORMALIZED RATIO 1.8 RATIO
[2017-03-07 10:09] LABS: AUTOMATED NEUTROPHIL # 2.3 TH/MM3 (1.8-7.7); BASOPHIL % 0.6 % (0.0-2.0); EOSINOPHIL # 0.2 TH/MM3 (0-0.4); EOSINOPHIL % 2.9 % (0.0-4.0); HEMATOCRIT 43.5 % (35.0-46.0); HEMO FLAGS DIFF FINAL; LYMPHOCYTE # 3.2 TH/MM3 (1.0-4.8); MEAN CELL VOLUME 90.2 FL (80.0-100.0); MEAN CORPUSCULAR HEMOGLOBIN 29.9 PG (27.0-34.0); MEAN CORPUSCULAR HGB CONC 33.2 % (32.0-36.0); MONO % 8.4 % (0.0-8.0); NEUT % 37.1 % (16.0-70.0); PLATELET COUNT 194 TH/MM3 (150-450); RED BLOOD COUNT 4.82 MIL/MM3 (4.00-5.30); RED CELL DISTRIBUTION WIDTH 12.8 % (11.6-17.2); WHITE BLOOD COUNT 6.2 TH/MM3 (4.0-11.0)
--- NOTE | 2017-03-07 10:30 | MB ---
cc: CIELO SOLANO M.D. DATE OF CONSULTATION 03/07/2017 REASON FOR CONSULTATION Vision loss HISTORY OF PRESENT ILLNESS Ms. Renner is a 66-year-old woman with a history of atrial fibrillation and previous stroke in the past for which she takes Coumadin. Several days ago she began to experience a pain in the left periorbital religious region which is a new type of headache for her. She then had vision change only in the left where she saw a band of visual loss going across and then lost the periphery of the vision on the left side. The vision in the right eye was normal. She had no other neurologic complaints. She does have some mild facial numbness on the left. PAST MEDICAL HISTORY 1. History of stroke in the past. 2. History of atrial fibrillation, she has a loop recorder. 3. Hypertension 4. UTI's in the past 5. Hypothyroidism 6. Hiatal hernia repair 7. Right ovary resection 8. Bilateral carpal tunnel surgery 9. Right shoulder repair 10. Right knee repair 11. Cholecystectomy 12. Appendectomy 13. Right elbow surgery 14. Right ankle surgery 15. Tubal ligation MEDICATIONS AT HOME 1. Coumadin 2. Magnesium citrate 3. Tylenol 4. Melatonin 5. Levothyroxine 6. Gabapentin 7. Lasix 8. Flexeril ALLERGIES SULFA, AZITHROMYCIN, CEPHALEXIN, DIPHENHYDRAMINE, DOXYCYCLINE, IBUPROFEN, MINOCYCLINE, PENICILLIN, TIGECYCLINE, VILANTEROL, FLUTICASONE, CIPROFLOXACIN, SALMETEROL. SHE STATES SHE IS ALLERGIC TO BROMIDE MONOHYDRATE, TIOTROPIUM AND TRIFENATATE. NEUROLOGIC EXAMINATION Blood pressure 130/82, pulse is 102, respiratory rate is 16, temperature 97.9 degrees. Higher cortical functions normal. Cranial nerves: Gross visual field testing. She has vision loss in the left eye only in the temporal periphery with normal vision of the right eye. Pupils equal and reactive. Extraocular movements intact. Facial sensation is normal. She does have tenderness of the left temporal area. On motor exam, she has 5/5 strength of all major groups. Reflexes are symmetric. CT head is within normal limits. Carotid ultrasound, no evidence of any significant stenosis. LABORATORY DATA Sed rate 16, white count 8700, hemoglobin 14.9, hematocrit 45%, platelets 246,000, PT 18.1, INR 1.6, APTT 34.9. Sodium 139, potassium 3.6, Chloride 104, CO2 27.7, the BUN is 16, creatinine 1.16, GFR is 47, glucose 158, TSH 3.5. Hemoglobin A1C 8.5. IMPRESSION Rule out temporal arteritis, although the normal sed rate is against this, rule out occipital stroke. RECOMMENDATIONS I would like to check a C-reactive protein, consider a temporal artery biopsy if MRI of the brain is negative for stroke. MD BJ Howell/DANIELE /8:54 AM /10:12 AM
[2017-03-07] MEDS: methylPREDNISolone SO SUCC INJ 1,000 MG in DEXTROSE 5% IN WATER INJ 250 ML IV SCH ×2 (11:04)
[2017-03-07 11:05] LABS: BICARBONATE 27.5 MEQ/L (21.0-32.0); POTASSIUM 3.4 MEQ/L (3.5-5.1)
[2017-03-07] MEDS: traMADol HCL 50 MG TAB PO PRN ×2 (11:06→18:04)
[2017-03-07 11:10] LABS: HDL CHOLESTEROL 42.7 MG/DL (40.0-60.0)
--- NOTE | 2017-03-07 11:46 | EKG ---
Date Performed: 03/06/2017 Time Performed: 13:41:00 PTAGE: 66 years EKG: SINUS TACHYCARDIA WITH OCCASIONAL PVCs MARKED LEFT AXIS DEVIATION Late R-wave transition AB NORMAL ECG INTERPRETATION BASED ON A DEFAULT AGE OF 40 YEARS NO PREVIOUS TRACING DOCTOR: Florencio Browne Interpretating Date/Time 03/07/2017 11:42:53
--- NOTE | 2017-03-07 16:38 | HHI.PR ---
Subjective Remarks Follow up headache, vision changes. Patient states that her headache is much better. Vision is "almost back to normal". Denies chest pain, dyspnea, nausea, vomiting. Objective Vitals Vital Signs Date Time Temp Pulse Resp B/P (MAP) Pulse Ox O2 Delivery O2 Flow Rate FiO2 03/07/17 11:57 98.0 96 16 143/75 (97) 94 03/07/17 09:37 94 03/07/17 08:51 97.9 102 16 130/82 (98) 95 03/07/17 08:50 87 03/07/17 04:00 97.6 92 20 143/76 (98) 93 03/07/17 03:39 21 03/07/17 00:00 98.3 96 20 150/78 (102) 94 03/06/17 20:00 97.3 104 20 127/79 (95) 92 03/06/17 17:45 98.1 99 17 139/74 (95) 93 03/06/17 16:59 95 21 I/O 03/06/17 03/06/17 03/06/17 03/07/17 03/07/17 03/07/17 06:59 14:59 22:59 06:59 14:59 22:59 Intake Total 240 ml 189 ml Balance 240 ml 189 ml Intake Oral 240 ml IV Total 189 ml # Voids 1 1 Result Diagram: 03/07/17 0822 03/07/17 0822 Imaging Last Impressions Head CT 03/06/17 1336 Signed Impressions: Service Date/Time: February 14:46 - CONCLUSION: 1. No acute intracranial abnormality identified. 2. Stable compared to previous dated 12/11/16. Eric Fields MD Carotid Artery Ultrasound 03/06/17 0000 Signed Impressions: Service Date/Time: February 19:51 - CONCLUSION: 1. Stable minimal calcified plaque in the right carotid bulb. No significant stenosis is present within either internal carotid artery. 2. There is antegrade flow in both vertebral arteries. Radu Charles MD Objective Remarks General: No acute distress. Heart: Regular rate and rhythm. No murmur. Lungs: Clear to auscultation bilaterally. No wheezes, rales, or rhonchi. Breathing is nonlabored. Abdomen: Soft, nontender, nondistended. Extremities: No lower extremity edema. Psych: Alert and oriented. Neuro: Moves all extremities well. Speech is normal. Procedures None Urinary Catheter: No Vascular Central Line Catheter: No A/P Problem List: (1) TIA (transient ischemic attack) ICD Code: G45.9 - Transient cerebral ischemic attack, unspecified Status: Acute (2) Subtherapeutic international normalized ratio (INR) ICD Code: R79.1 - Abnormal coagulation profile (3) Hypothyroid ICD Code: E03.9 - Hypothyroidism Status: Chronic (4) CKD (chronic kidney disease), stage III ICD Code: N18.3 - Chronic kidney disease, stage 3 (moderate) Status: Chronic Assessment and Plan 1. TIA vs CVA: Appreciate neurology recommendations. MRI/MRA pending. Symptoms almost completely resolved at this time. Permissive hypertension. Continue neuro checks. PT/OT/ST. Continue steroids for possibility of temporal arteritis. 2. Subtherapeutic INR: Coumadin on hold. Continue Lovenox. Monitor INR. 3. Hypothyroidism: Continue levothyroxine. 4. CKD: At baseline. 5. Lower extremity edema: Continue Lasix. 6. Hypokalemia: Supplement potassium. 7. Diabetes mellitus: Glucose elevated secondary to steroids. Diabetic diet. Monitor accu-check and cover with sliding scale insulin. 8. DVT prophylaxis: Lovenox. Gene Curtis MD Mar 07, 2017 16:38
--- NOTE | 2017-03-07 17:35 | RADRPT ---
EXAM DATE/TIME: 03/07/2017 14:46 [facility] COMPARISON: MRA BRAIN W/O CONTRAST, June 30, 2016, 19:12. INDICATIONS : CVA. MEDICAL HISTORY : Hernia, hiatal. Hypertension. Renal insufficiency, chronic. SURGICAL HISTORY : Tubal ligation. Appendectomy. Cholecystectomy. ENCOUNTER: Initial ACUITY: 2 day PAIN SCORE: 0/10 LOCATION: head Please note a normal MRA of the brain does not entirely exclude the possibility of a small aneurysm, nor the possibility of distal intracranial vessel disease. TECHNIQUE: 3D time of flight MRA was performed. Source images, multiplanar STS MIP, and 3D volume MIP reconstru ctions were reviewed. FINDINGS: Examination is limited by motion artifact. 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 There is no evidence for significant aneurysm, ves gala truncation or stenosis, and no evidence for vascular malformation. Posterior circulation: Patent right P-comm. Tortuous basilar artery. There is no evidence for significant aneurysm, vessel t runcation or stenosis, and no evidence for vascular malformation. CONCLUSION: 1. Limited examination due to motion artifact. 2. No evidence for large vessel occlusion or interval change from prior exams. 3. Redemonstration of hypoplastic right A1 segment. Jose Angel Rodriguez MD on March 07, 2017 at 17:29 Board Certified Radiologist. This report was verified electronically.
--- NOTE | 2017-03-07 17:38 | RADRPT ---
EXAM DATE/TIME: 03/07/2017 14:46 [facility] COMPARISON: MRI BRAIN W/O CONTRAST, June 30, 2016, 19:12. INDICATIONS : CVA. MEDICAL HISTORY : Hypertension. Renal insufficiency. SURGICAL HISTORY : Appendectomy. Tubal ligation. Cholecystectomy. ENCOUNTER: Initial ACUITY: 2 day PAIN SCORE: 0/10 LOCATION: head TECHNIQUE: Multiplanar, multisequence MRI of the brain was performed without contrast. FINDINGS: CEREBRUM: The ventricles are normal for age. No evidence of midline shift, mass lesion, hemorrhage or acute in farction. No extraaxial fluid collections are seen. The pituitary gland and suprasellar cistern are normal in configuration. WHITE MATTER: Periventricular and numerous scattered white matter focal T2 prolongation similar to previous examina tion consistent with small vessel ischemic demyelination. POSTERIOR FOSSA: The cerebellum and brainstem are intact. The 4th ventricle is midline. The cerebellopontine angle is unremarkable. The cerebellar tonsils are normal in position. DIFFUSION IMAGING: No focal areas of restricted diffusion are seen. No evidence of acute infarction. EXTRACRANIAL: The visualized portions of the orbits and paranasal sinuses are unremarkable. CONCLUSION: 1. Stable periventricular and subcortical white matter small vessel ischemic white matter demyelinati on that is out of proportion for age. 2. No evidence for acute infarction or other acute intracranial abnormality. Jose Angel Rodriguez MD on March 07, 2017 at 17:34 Board Certified Radiologist. This report was verified electronically.
[2017-03-07] MEDS: POTASSIUM CHLORIDE 20 MEQ CONTROLLED RELEASE TAB PO SCH (17:52)
[2017-03-07] MEDS: ATORVASTATIN 10 MG TAB PO SCH (22:14)
[2017-03-08] VITALS (8 sets, daily range): BP systolic 131–157; BP diastolic 76–84; PULSE 90–114; RESP 16–19; TEMP 97.5–98.6; O2SAT 92–100
[2017-03-08] MEDS: LEVOTHYROXINE SODIUM 75 MCG TAB PO SCH (05:56)
[2017-03-08] MEDS: ENOXAPARIN SODIUM 100 MG/ML SYRINGE SQ SCH ×2 (05:56→17:00)
[2017-03-08] MEDS: INSULIN ASPART SUPPLEMENTAL SCALE SQ SCH ×4 (06:00→20:20)
[2017-03-08] MEDS: GABAPENTIN 400 MG CAP PO SCH ×2 (08:46→20:08)
[2017-03-08] MEDS: ASPIRIN 81 MG CHEW TAB PO SCH (08:46)
[2017-03-08] MEDS: POTASSIUM CHLORIDE 20 MEQ CONTROLLED RELEASE TAB PO SCH (08:46)
[2017-03-08] MEDS: FAMOTIDINE 20 MG TAB PO SCH ×2 (08:46→20:09)
[2017-03-08] MEDS: traMADol HCL 50 MG TAB PO PRN ×2 (08:46→22:44)
[2017-03-08] MEDS: FUROSEMIDE 20 MG TAB PO SCH ×2 (08:47→20:09)
[2017-03-08 08:59] LABS: BICARBONATE 25.1 MEQ/L (21.0-32.0); POTASSIUM 3.8 MEQ/L (3.5-5.1)
[2017-03-08] MEDS: SODIUM CHLORIDE 0.9% FLUSH 5 ML FLUSH IV FLUSH SCH ×2 (09:00→20:10)
[2017-03-08] MEDS: methylPREDNISolone SO SUCC INJ 1,000 MG in DEXTROSE 5% IN WATER INJ 250 ML IV SCH ×2 (10:51)
--- NOTE | 2017-03-08 14:59 | HHI.PR ---
Subjective Remarks Follow up vision changes. Patient has no complaints at this time. Vision is essentially back to normal. Occasionally she sees spots, but much less than before. Denies headache, chest pain, dyspnea. No numbness/tingling/weakness of extremities. Objective Vitals Vital Signs Date Time Temp Pulse Resp B/P (MAP) Pulse Ox O2 Delivery O2 Flow Rate FiO2 03/08/17 12:00 98.4 108 19 140/76 (97) 92 03/08/17 08:00 98.6 112 19 146/77 (100) 93 03/08/17 05:45 90 03/08/17 04:00 97.5 106 18 157/84 (108) 93 03/08/17 00:00 98.6 104 18 145/81 (102) 100 03/07/17 22:42 92 21 03/07/17 20:00 98.8 112 20 150/83 (105) 100 03/07/17 20:00 121 03/07/17 16:57 98.1 102 16 145/79 (101) 92 I/O 03/07/17 03/07/17 03/07/17 03/08/17 03/08/17 03/08/17 07:00 15:00 23:00 07:00 15:00 23:00 Intake Total 189 ml Balance 189 ml IV Total 189 ml # Voids 1 3 3 Result Diagram: 03/07/17 0822 03/08/17 0650 Imaging Last Impressions Head Magnetic Resonance Angiography 03/07/17 0000 Signed Impressions: Service Date/Time: Tuesday, March 07, 2017 14:46 - CONCLUSION: 1. Limited examination due to motion artifact. 2. No evidence for large vessel occlusion or interval change from prior exams. 3. Redemonstration of hypoplastic right A1 segment. Jose Angel Rodriguez MD Brain MRI 03/07/17 0000 Signed Impressions: Service Date/Time: Tuesday, March 07, 2017 14:46 - CONCLUSION: 1. Stable periventricular and subcortical white matter small vessel ischemic white matter demyelination that is out of proportion for age. 2. No evidence for acute infarction or other acute intracranial abnormality. Jose Angel Rodriguez MD Head CT 03/06/17 1336 Signed Impressions: Service Date/Time: February 14:46 - CONCLUSION: 1. No acute intracranial abnormality identified. 2. Stable compared to previous dated 12/11/16. Eric Fields MD Carotid Artery Ultrasound 03/06/17 0000 Signed Impressions: Service Date/Time: February 19:51 - CONCLUSION: 1. Stable minimal calcified plaque in the right carotid bulb. No significant stenosis is present within either internal carotid artery. 2. There is antegrade flow in both vertebral arteries. Radu Charles MD Objective Remarks General: No acute distress. Sitting up in a chair. Heart: Regular rate and rhythm. No murmur. Lungs: Clear to auscultation bilaterally. No wheezes, rales, or rhonchi. Breathing is nonlabored. Abdomen: Soft, nontender, nondistended. Extremities: No lower extremity edema. Psych: Alert and oriented. Neuro: Moves all extremities well. Speech is normal. Procedures None Urinary Catheter: No Vascular Central Line Catheter: No A/P Problem List: (1) TIA (transient ischemic attack) ICD Code: G45.9 - Transient cerebral ischemic attack, unspecified Status: Acute (2) Subtherapeutic international normalized ratio (INR) ICD Code: R79.1 - Abnormal coagulation profile (3) Hypothyroid ICD Code: E03.9 - Hypothyroidism Status: Chronic (4) CKD (chronic kidney disease), stage III ICD Code: N18.3 - Chronic kidney disease, stage 3 (moderate) Status: Chronic Assessment and Plan 1. TIA vs CVA: Appreciate neurology recommendations. MRI/MRA pending. Symptoms almost completely resolved at this time. Permissive hypertension. Continue neuro checks. PT/OT/ST. Continue steroids for possibility of temporal arteritis. 2. Subtherapeutic INR: Coumadin on hold. Continue Lovenox. Monitor INR. 3. Hypothyroidism: Continue levothyroxine. 4. CKD with superimposed acute kidney injury: BUN/creatinine increased. Add IV fluids. 5. Lower extremity edema: Continue Lasix. 6. Hypokalemia: Supplement potassium. 7. Diabetes mellitus: Glucose elevated secondary to steroids. Diabetic diet. Monitor accu-check and cover with sliding scale insulin. 8. DVT prophylaxis: Lovenox. Gene Curtis MD Mar 08, 2017 14:59
[2017-03-08] MEDS: NS + KCL 20 MEQ INJ 1,000 ML IV SCH (16:36)
--- NOTE | 2017-03-08 17:47 | ECHRPT ---
Indication: cva/tia CONCLUSIONS Wall thickness is normal. Normal left ventricular size. No regional wall motion abnormalities are present. Mild mitral valve regurgitation. There is mild tricuspid valve regurgitation. There is estimated mild pulmonary hypertension present (range 40-50 mmHg). The pulmonary valve is not well visualized. EF @ 60% Wall thickness is normal. Normal left ventricular size. No regional wall motion abnormalities are present. Mild mitral valve regurgitation. There is mild tricuspid valve regurgitation. There is estimated mild pulmonary hypertension present (range 40-50 mmHg). The pulmonary valve is not well visualized. BP: / HR: Rhythm: MEASUREMENTS (Male / Female) Normal Values Technical Quality:Fair 2D ECHO LV Diastolic Diameter PLAX 3.7 cm 4.2 - 5.9 / 3.9 - 5.3 cm LV Systolic Diameter PLAX 2.7 cm IVS Diastolic Thickness 0.9 cm 0.6 - 1.0 / 0.6 - 0.9 cm LVPW Diastolic Thickness 0.8 cm 0.6 - 1.0 / 0.6 - 0.9 cm LV Relative Wall Thickness 0.5 RV Internal Dim ED PLAX 2.2 cm M-MODE Aortic Root Diameter MM 2.7 cm LA Systolic Diameter MM 3.3 cm LA Ao Ratio MM 1.2 AV Cusp Separation MM 1.8 cm DOPPLER MV Area PHT 3.9 cm LV E' Lateral Velocity 18.0 cm/s LV E' Septal Velocity 15.8 cm/s TR Peak Velocity 301.0 cm/s TR Peak Gradient 36.2 mmHg FINDINGS LEFT VENTRICLE The left ventricular systolic function is normal with an estimated ejection fraction in the range of 60-65%. Wall thickness is normal. Normal left ventricular size. No regional wall motion abnormalities are present. RIGHT VENTRICLE Normal right ventricular size and systolic function. LEFT ATRIUM The left atrial size is normal. RIGHT ATRIUM The right atrial size is normal. ATRIAL SEPTUM Normal atrial septal thickness without atrial level shunting by limited color doppler interrogation. AORTA The aortic root and proximal ascending aorta are normal in size on limited imaging. MITRAL VALVE Structurally normal mitral valve. Mild mitral valve regurgitation. AORTIC VALVE Trileaflet aortic valve. No aortic valve stenosis or regurgitation. TRICUSPID VALVE Structurally normal tricuspid valve. There is mild tricuspid valve regurgitation. There is estimated mild pulmonary hypertension present (range 40-50 mmHg). PULMONARY VALVE The pulmonary valve is not well visualized. VESSELS The inferior vena cava is normal in size. PERICARDIUM No pericardial effusion. Florencio Hollie MD, FACC, FSCAI (Electronically Signed) Final Date:08 March 2017 17:46
[2017-03-08] MEDS: ATORVASTATIN 10 MG TAB PO SCH (20:08)
[2017-03-09] VITALS (7 sets, daily range): BP systolic 126–159; BP diastolic 68–86; PULSE 96–111; RESP 16–18; TEMP 96.5–98.5; O2SAT 93–100
[2017-03-09] MEDS: INSULIN ASPART SUPPLEMENTAL SCALE SQ SCH ×4 (06:10→20:59)
[2017-03-09] MEDS: LEVOTHYROXINE SODIUM 75 MCG TAB PO SCH (06:13)
[2017-03-09] MEDS: ENOXAPARIN SODIUM 100 MG/ML SYRINGE SQ SCH ×2 (06:13→17:43)
[2017-03-09] MEDS: traMADol HCL 50 MG TAB PO PRN ×2 (06:18→18:50)
[2017-03-09] MEDS: GABAPENTIN 400 MG CAP PO SCH ×2 (08:45→21:01)
[2017-03-09] MEDS: POTASSIUM CHLORIDE 20 MEQ CONTROLLED RELEASE TAB PO SCH (08:45)
[2017-03-09] MEDS: ASPIRIN 81 MG CHEW TAB PO SCH (08:45)
[2017-03-09] MEDS: FUROSEMIDE 20 MG TAB PO SCH ×2 (08:46→21:01)
[2017-03-09] MEDS: FAMOTIDINE 20 MG TAB PO SCH ×2 (08:46→21:00)
[2017-03-09] MEDS: SODIUM CHLORIDE 0.9% FLUSH 5 ML FLUSH IV FLUSH SCH ×2 (09:00→21:00)
[2017-03-09 11:47] LABS: INTERNATIONAL NORMALIZED RATIO 1.1 RATIO
[2017-03-09 12:11] LABS: BICARBONATE 23.1 MEQ/L (21.0-32.0); POTASSIUM 4.1 MEQ/L (3.5-5.1)
[2017-03-09] MEDS: NS + KCL 20 MEQ INJ 1,000 ML IV SCH (12:19)
[2017-03-09] MEDS: methylPREDNISolone SO SUCC INJ 1,000 MG in DEXTROSE 5% IN WATER INJ 250 ML IV SCH ×2 (12:20)
[2017-03-09] MEDS: INSULIN DETEMIR 100 UNITS/ML VIAL SQ SCH ×2 (15:00→21:00)
--- NOTE | 2017-03-09 15:16 | HHI.PR ---
Subjective Remarks Follow up vision change. Symptoms are much better today. Only mild headache. Wants to go home. Objective Vitals Vital Signs Date Time Temp Pulse Resp B/P (MAP) Pulse Ox O2 Delivery O2 Flow Rate FiO2 03/09/17 12:00 98.3 104 16 145/85 (105) 94 03/09/17 08:00 98.0 107 16 159/86 (110) 94 03/09/17 03:57 96.5 96 18 138/69 (92) 100 03/09/17 00:34 98.5 96 18 126/68 (87) 100 03/08/17 20:31 98.2 107 18 131/79 (96) 100 03/08/17 20:20 113 03/08/17 16:00 98.3 114 16 145/82 (103) 95 I/O 03/08/17 03/08/17 03/08/17 03/09/17 03/09/17 03/09/17 06:59 14:59 22:59 06:59 14:59 22:59 # Voids 3 3 3 Result Diagram: 03/07/17 0822 03/09/17 1010 Imaging Last Impressions Head Magnetic Resonance Angiography 03/07/17 0000 Signed Impressions: Service Date/Time: Tuesday, March 07, 2017 14:46 - CONCLUSION: 1. Limited examination due to motion artifact. 2. No evidence for large vessel occlusion or interval change from prior exams. 3. Redemonstration of hypoplastic right A1 segment. Jose Angel Rodriguez MD Brain MRI 03/07/17 0000 Signed Impressions: Service Date/Time: Tuesday, March 07, 2017 14:46 - CONCLUSION: 1. Stable periventricular and subcortical white matter small vessel ischemic white matter demyelination that is out of proportion for age. 2. No evidence for acute infarction or other acute intracranial abnormality. Jose Angel Rodriguez MD Head CT 03/06/17 1336 Signed Impressions: Service Date/Time: February 14:46 - CONCLUSION: 1. No acute intracranial abnormality identified. 2. Stable compared to previous dated 12/11/16. Eric Fields MD Carotid Artery Ultrasound 03/06/17 0000 Signed Impressions: Service Date/Time: February 19:51 - CONCLUSION: 1. Stable minimal calcified plaque in the right carotid bulb. No significant stenosis is present within either internal carotid artery. 2. There is antegrade flow in both vertebral arteries. Radu Charles MD Objective Remarks General: No acute distress. Sitting up in a chair. Heart: Regular rate and rhythm. No murmur. Lungs: Clear to auscultation bilaterally. No wheezes, rales, or rhonchi. Breathing is nonlabored. Abdomen: Soft, nontender, nondistended. Extremities: No lower extremity edema. Psych: Alert and oriented. Neuro: Moves all extremities well. Speech is normal. Procedures None Urinary Catheter: No Vascular Central Line Catheter: No A/P Problem List: (1) TIA (transient ischemic attack) ICD Code: G45.9 - Transient cerebral ischemic attack, unspecified Status: Acute (2) Subtherapeutic international normalized ratio (INR) ICD Code: R79.1 - Abnormal coagulation profile (3) Hypothyroid ICD Code: E03.9 - Hypothyroidism Status: Chronic (4) CKD (chronic kidney disease), stage III ICD Code: N18.3 - Chronic kidney disease, stage 3 (moderate) Status: Chronic Assessment and Plan 1. TIA vs CVA: MRI/MRA show no acute change. Symptoms almost completely resolved at this time. Permissive hypertension. Continue neuro checks. PT/OT/ ST. Discontinue Solu Medrol after today's dose. 2. Subtherapeutic INR: Coumadin on hold. Continue Lovenox. Monitor INR. 3. Hypothyroidism: Continue levothyroxine. 4. CKD with superimposed acute kidney injury: BUN/creatinine increased. Add IV fluids. 5. Lower extremity edema: Continue Lasix. 6. Hypokalemia: Supplement potassium. 7. Diabetes mellitus: Glucose elevated secondary to steroids. Diabetic diet. Monitor accu-check and cover with sliding scale insulin. Add Levemir. 8. DVT prophylaxis: Lovenox. Discussed with Dr. Cruz, neurology. Will discontinue Solu Medrol after today's dose and consider discharge home tomorrow. Discharge Planning Probable discharge home tomorrow if glucose control is improved. Gene Curtis MD Mar 09, 2017 15:16
[2017-03-09] MEDS: ATORVASTATIN 10 MG TAB PO SCH (21:02)
[2017-03-10] VITALS (9 sets, daily range): BP systolic 155–182; BP diastolic 83–96; PULSE 93–105; RESP 18–20; TEMP 97.3–98.1; O2SAT 93–96
[2017-03-10] MEDS: LEVOTHYROXINE SODIUM 75 MCG TAB PO SCH (05:55)
[2017-03-10] MEDS: ENOXAPARIN SODIUM 100 MG/ML SYRINGE SQ SCH ×2 (05:56→17:27)
[2017-03-10] MEDS: INSULIN ASPART SUPPLEMENTAL SCALE SQ SCH ×4 (06:00→21:37)
[2017-03-10] MEDS: traMADol HCL 50 MG TAB PO PRN (06:05)
[2017-03-10 07:57] LABS: BICARBONATE 23.8 MEQ/L (21.0-32.0)
[2017-03-10] MEDS: INSULIN DETEMIR 100 UNITS/ML VIAL SQ SCH ×2 (08:44→21:38)
[2017-03-10] MEDS: POTASSIUM CHLORIDE 20 MEQ CONTROLLED RELEASE TAB PO SCH (08:47)
[2017-03-10] MEDS: SODIUM CHLORIDE 0.9% FLUSH 5 ML FLUSH IV FLUSH SCH ×2 (08:47→21:00)
[2017-03-10] MEDS: GABAPENTIN 400 MG CAP PO SCH ×2 (08:47→21:39)
[2017-03-10] MEDS: FAMOTIDINE 20 MG TAB PO SCH ×2 (08:48→21:00)
[2017-03-10] MEDS: ASPIRIN 81 MG CHEW TAB PO SCH (08:48)
[2017-03-10] MEDS: FUROSEMIDE 20 MG TAB PO SCH ×2 (08:48→21:39)
[2017-03-10] MEDS: NS + KCL 20 MEQ INJ 1,000 ML IV SCH (08:53)
--- NOTE | 2017-03-10 11:55 | HHI.PR ---
Subjective Remarks Follow up vision changes. Patient has no complaints. Wants to go home. Vision is back to normal. Objective Vitals Vital Signs Date Time Temp Pulse Resp B/P (MAP) Pulse Ox O2 Delivery O2 Flow Rate FiO2 03/10/17 10:03 96 03/10/17 08:37 98.1 99 20 156/95 (115) 96 03/10/17 04:00 97.7 94 18 167/91 (116) 93 03/10/17 00:00 98.0 101 18 155/85 (108) 95 03/09/17 21:34 93 21 03/09/17 20:00 111 03/09/17 16:00 98.4 104 16 138/83 (101) 94 03/09/17 12:00 98.3 104 16 145/85 (105) 94 I/O 03/09/17 03/09/17 03/09/17 03/10/17 03/10/17 03/10/17 07:00 15:00 23:00 07:00 15:00 23:00 Intake Total 960 ml Balance 960 ml Intake Oral 960 ml # Voids 3 4 # Bowel Movements 3 Result Diagram: 03/07/17 0822 03/10/17 0620 Imaging Last Impressions Head Magnetic Resonance Angiography 03/07/17 0000 Signed Impressions: Service Date/Time: Tuesday, March 07, 2017 14:46 - CONCLUSION: 1. Limited examination due to motion artifact. 2. No evidence for large vessel occlusion or interval change from prior exams. 3. Redemonstration of hypoplastic right A1 segment. Jose Angel Rodriguez MD Brain MRI 03/07/17 0000 Signed Impressions: Service Date/Time: Tuesday, March 07, 2017 14:46 - CONCLUSION: 1. Stable periventricular and subcortical white matter small vessel ischemic white matter demyelination that is out of proportion for age. 2. No evidence for acute infarction or other acute intracranial abnormality. Jose Angel Rodriguez MD Head CT 03/06/17 1336 Signed Impressions: Service Date/Time: February 14:46 - CONCLUSION: 1. No acute intracranial abnormality identified. 2. Stable compared to previous dated 12/11/16. Eric Fields MD Carotid Artery Ultrasound 03/06/17 0000 Signed Impressions: Service Date/Time: February 19:51 - CONCLUSION: 1. Stable minimal calcified plaque in the right carotid bulb. No significant stenosis is present within either internal carotid artery. 2. There is antegrade flow in both vertebral arteries. Radu Charles MD Objective Remarks General: No acute distress. Sitting up in a chair. Heart: Regular rate and rhythm. No murmur. Lungs: Clear to auscultation bilaterally. No wheezes, rales, or rhonchi. Breathing is nonlabored. Abdomen: Soft, nontender, nondistended. Extremities: No lower extremity edema. Psych: Alert and oriented. Neuro: Moves all extremities well. Speech is normal. Procedures None Urinary Catheter: No Vascular Central Line Catheter: No A/P Problem List: (1) TIA (transient ischemic attack) ICD Code: G45.9 - Transient cerebral ischemic attack, unspecified Status: Acute (2) Subtherapeutic international normalized ratio (INR) ICD Code: R79.1 - Abnormal coagulation profile (3) Hypothyroid ICD Code: E03.9 - Hypothyroidism Status: Chronic (4) CKD (chronic kidney disease), stage III ICD Code: N18.3 - Chronic kidney disease, stage 3 (moderate) Status: Chronic Assessment and Plan 1. TIA vs CVA: MRI/MRA show no acute change. Symptoms almost completely resolved at this time. Permissive hypertension. Continue neuro checks. PT/OT/ ST. Solu Medrol discontinued. Surgery consulted for temporal artery biopsy. 2. Subtherapeutic INR: Coumadin on hold. Continue Lovenox. Monitor INR. 3. Hypothyroidism: Continue levothyroxine. 4. CKD with superimposed acute kidney injury: BUN/creatinine increased. Add IV fluids. 5. Lower extremity edema: Continue Lasix. 6. Hypokalemia: Supplement potassium. 7. Diabetes mellitus: Glucose elevated secondary to steroids. Diabetic diet. Monitor accu-check and cover with sliding scale insulin. Continue Levemir. 8. DVT prophylaxis: Lovenox. Discharge Planning Plan for discharge home when cleared by neurology. Gene Curtis MD Mar 10, 2017 11:55
[2017-03-10] MEDS: predniSONE 20 MG TAB PO SCH (12:46)
--- NOTE | 2017-03-10 17:59 | HHI.PR ---
Review/Management Diagnosis possible temporal arteritis. Sed rate was normal but crp mildly elevated. very good response to steroids. Plan consider left temporal artery biopsy to assist in diagnosis continue po prednisone Diagnosis/Plan: Subjective Subjective Comments No acute events reported reports vision in left eye back to normal and left lutheran pain improved after iv steroids Active Medications Current Medications Medications (Trade) Dose Ordered Sig/Christal Route Start Time Stop Time Status Last Admin (NS Flush) 2 ml BID IV FLUSH 03/06/17 21:00 03/10/17 08:47 (NS Flush) 2 ml UNSCH PRN IV FLUSH 03/06/17 16:30 (Vasotec Inj) 1.25 mg Q4H PRN IV 03/06/17 16:30 (Aspirin Chew) 162 mg DAILY PO 03/06/17 18:00 03/10/17 08:48 (Lovenox Inj) 90 mg Q12H SQ 03/06/17 18:00 03/10/17 17:27 (Lipitor) 10 mg HS PO 03/06/17 21:00 (NovoLOG SUPPLEMENTAL SCALE) 1 ACHS SQ 03/06/17 21:00 03/10/17 15:48 (D50w (Vial) Inj) 50 ml UNSCH PRN IV PUSH 03/06/17 16:30 (Glucagon Inj) 1 mg UNSCH PRN OTHER 03/06/17 16:30 (Lasix) 20 mg BID PO 03/06/17 21:00 03/10/17 08:48 (Neurontin) 400 mg BID PO 03/06/17 21:00 03/10/17 08:47 (Synthroid) 75 mcg DAILY@0600 PO 03/07/17 06:00 03/10/17 05:55 (Ultram) 50 mg Q8H PRN PO 03/06/17 18:30 03/10/17 06:05 (KCl) 20 meq DAILY PO 03/07/17 17:00 03/10/17 08:47 Potassium Chloride/Sodium Chloride 1,000 ml @ 50 mls/hr Q20H IV 03/08/17 15:00 03/10/17 08:53 (Levemir Inj) 5 units Q12HR SQ 03/09/17 15:00 03/10/17 08:44 (Deltasone) 60 mg DAILY PO 03/10/17 12:00 03/10/17 12:46 (Pepcid) 10 mg Q12HR PO 03/10/17 21:00 Allergies Allergies Coded Allergies Sulfa (Sulfonamide Antibiotics) (Unverified Allergy, Severe, Rash, 03/06/17) azithromycin (Unverified Allergy, Severe, Shortness of Breath, 03/06/17) cephalexin (Unverified Allergy, Severe, Itching, 03/06/17) diphenhydramine (Unverified Allergy, Severe, 03/06/17) doxycycline (Unverified Allergy, Severe, Shortness of Breath, 03/06/17) ibuprofen (Unverified Allergy, Severe, Rash, 03/06/17) minocycline (Unverified Allergy, Severe, Shortness of Breath, 03/06/17) penicillin G (Unverified Allergy, Severe, Shortness of Breath, 03/06/17) tigecycline (Unverified Allergy, Severe, Shortness of Breath, 03/06/17) vilanterol (Unverified Allergy, Severe, Dizziness, 03/06/17) fluticasone (Unverified Adverse Reaction, Severe, Dizziness, 03/06/17) fluticasone furoate (Unverified Adverse Reaction, Severe, Dizziness, 03/06/17) salmeterol (Unverified Adverse Reaction, Severe, Dizziness, 03/06/17) ciprofloxacin (Unverified Adverse Reaction, Intermediate, Nausea/Vomiting, ) Uncoded Allergies BROMIDE ( Allergy, Severe, Shortness of Breath, 06/21/14) FUROATE ( Allergy, Severe, Shortness of Breath, 06/21/14) MONOHYDRATE ( Allergy, Severe, Itching, 06/21/14) TIOTROPIUM ( Allergy, Severe, Dizziness, 06/21/14) TRIFENATATE ( Allergy, Severe, Shortness of Breath, 06/21/14) Exam I&O / VS 03/10/17 03/10/17 03/11/17 15:00 23:00 07:00 Intake Total 738 ml Balance 738 ml IV Total 738 ml # Voids 5 # Bowel Movements 4 Vital Signs Date Time Temp Pulse Resp B/P (MAP) Pulse Ox O2 Delivery O2 Flow Rate FiO2 03/10/17 16:41 97.3 93 20 161/93 (115) 96 03/10/17 12:50 158/94 (115) 03/10/17 12:15 97.6 97 20 182/96 (124) 94 03/10/17 10:03 96 03/10/17 08:37 98.1 99 20 156/95 (115) 96 03/10/17 08:05 96 03/10/17 04:00 97.7 94 18 167/91 (116) 93 03/10/17 00:00 98.0 101 18 155/85 (108) 95 03/09/17 21:34 93 21 03/09/17 20:00 111 Exam Comments alert, speech normal CN intact, including visual mancini. MOTOR--no focal weakness Objective Radiology Results MRI brain--ischemic demyelination MRA no aneurysm Micro and Labs Laboratory Tests Test 03/10/17 06:20 Blood Urea Nitrogen 32 Creatinine 1.17 Random Glucose 378 Calcium Level 8.9 Sodium Level 138 Potassium Level 4.0 Chloride Level 103 Carbon Dioxide Level 23.8 Anion Gap 11 Estimat Glomerular Filtration Rate 46 Almas Cruz PhD Mar 10, 2017 17:59
[2017-03-10] MEDS: ATORVASTATIN 10 MG TAB PO SCH (21:40)
[2017-03-11] VITALS (7 sets, daily range): BP systolic 128–199; BP diastolic 79–108; PULSE 72–107; RESP 18–20; TEMP 97.3–98.6; O2SAT 95–97
[2017-03-11] MEDS: NS + KCL 20 MEQ INJ 1,000 ML IV SCH ×2 (03:00→12:53)
[2017-03-11] MEDS: ENOXAPARIN SODIUM 100 MG/ML SYRINGE SQ SCH ×2 (06:00→17:42)
[2017-03-11] MEDS: LEVOTHYROXINE SODIUM 75 MCG TAB PO SCH (06:00)
[2017-03-11] MEDS: INSULIN ASPART SUPPLEMENTAL SCALE SQ SCH ×4 (06:51→22:20)
--- NOTE | 2017-03-11 07:04 | MB ---
cc: LINDA TELLEZ M.D. DATE OF CONSULTATION 03/10/2017 REASON FOR CONSULTATION Left temporal artery biopsy. HISTORY OF PRESENT ILLNESS The patient is a 66-year-old female who has a history of multiple medical problems including CVA in 2016, atrial fibrillation, hypothyroidism, multiple UTI's and hypertension. The patient was admitted on 03/06/2017 with inability to see on the left side with associated numbness on her left face with tingling. MEDICATIONS The patient's medications included: 1. Warfarin 5 alternate with 7.5 mg daily 2. Melatonin 10 mg p.o. q.h.s. 3. Levothyroxine 75 mcg daily 4. Gabapentin 400 mg b.i.d. 5. Furosemide 20 mg b.i.d. 6. Flexeril 10 mg t.i.d. ALLERGIES The patient has allergies to SULFA, AZITHROMYCIN, CEPHALEXIN, DIPHENHYDRAMINE WHICH CAUSES HIVES AND DIFFICULT BREATHING, DOXYCYCLINE, IBUPROFEN, MINOCYCLINE, PENICILLIN, G-TIGECYCLINE, VILANTEROL , FLUTICASONE, SALMETEROL, CIPROFLOXACIN. Dr. Cruz has seen the patient in consultation and has recommended temporal artery biopsy as MRI of the brain was negative for stroke. PAST MEDICAL HISTORY Also includes: 1. Hiatal hernia repair 2. Bilateral carpal tunnel surgery 3. Right shoulder repair in [place]. 4. Right knee repair 5. Cholecystectomy 6. Appendectomy 7. Right elbow surgery x2 8. Right ankle surgery times one 9. Tubal ligation PHYSICAL EXAM Physical exam reveals an elderly female in no acute distress. VITAL SIGNS: BP 161/93, pulse 93, respirations 20, temperature 97.3, 96% saturation on room air. HEAD, EYES, EARS, NOSE, AND THROAT: Sclerae are anicteric. Pupils are reactive. NECK: Supple. Throat is clear. CHEST: Clear to auscultation. CARDIAC: Exam revealed an irregular rhythm. NEUROLOGIC: There is some vision loss in the left eye in the left lateral periphery. Motor exam is 5/5 strength throughout. LABORATORY DATA Laboratory values demonstrate INR of 1.1 yesterday. Hemoglobin is 14.4, platelet count 194,000. Chemistries BUN and creatinine are elevated at 32 and 1.2, potassium 4.0, glucose is elevated at 378. IMAGING STUDIES Brain MRI demonstrates no evidence of acute infarction from 03/07. Head CT on 03/06 demonstrated no acute intracranial abnormality. Carotid artery ultrasound 03/06 demonstrated no significant stenosis in either internal carotid artery with antegrade flow in both vertebral arteries. Head MRA demonstrates no evidence of large vessel occlusion or interval change from prior exams. PLAN Left temporal artery biopsy. I have discussed risks of surgery with the patient including but not limited to bleeding and infection. I have discussed remedies, consequences, alternatives, and convalescence; she vocalizes understanding and agrees to proceed. We will proceed with temporal artery biopsy on the left tomorrow 03/11/2017. Thank you, Dr. Cruz for asking us to see this individual. MD FAREED Ramirez/DANIELE /7:20 PM /6:49 AM
[2017-03-11] MEDS ORDERED: LACTATED RINGER'S 1000 ML IV PRN (08:15)
[2017-03-11] MEDS ORDERED: METOPROLOL TARTRATE 25 MG TAB PO PRN (08:15)
[2017-03-11] MEDS ORDERED: POVIDONE IODINE 5% (ANTISEPSIS KIT) 4 APPLICATIONS EACH NARE PRN (08:15)
[2017-03-11] MEDS ORDERED: INSULIN HUMAN REGULAR 1,000 UNITS/10 ML VIAL SQ PRN (08:15)
[2017-03-11] MEDS ORDERED: CHLORHEXIDINE GLUCONATE 2 % 1 PACK (2 CLOTHS) TOPICAL PRN (08:15)
[2017-03-11] MEDS ORDERED: SODIUM CHLORID 0.9% 500 ML IV PRN (08:15)
[2017-03-11] MEDS: POTASSIUM CHLORIDE 20 MEQ CONTROLLED RELEASE TAB PO SCH (08:40)
[2017-03-11] MEDS: FUROSEMIDE 20 MG TAB PO SCH ×2 (08:40→20:52)
[2017-03-11] MEDS: FAMOTIDINE 20 MG TAB PO SCH ×2 (08:40→20:54)
[2017-03-11] MEDS: INSULIN DETEMIR 100 UNITS/ML VIAL SQ SCH ×2 (08:40→22:18)
[2017-03-11] MEDS: GABAPENTIN 400 MG CAP PO SCH ×2 (08:40→20:53)
[2017-03-11] MEDS: predniSONE 20 MG TAB PO SCH (08:40)
[2017-03-11] MEDS: ASPIRIN 81 MG CHEW TAB PO SCH (08:40)
[2017-03-11] MEDS: SODIUM CHLORIDE 0.9% FLUSH 5 ML FLUSH IV FLUSH SCH ×2 (08:40→20:53)
[2017-03-11] MEDS: LIDOCAINE HCL 1% 50 ML VIAL ONE ×2 (11:17→11:35)
[2017-03-11] MEDS ORDERED: DO NOT ADM ANY ANTICOAGULANT DRUGS PRN (11:56)
[2017-03-11] MEDS ORDERED: PROPOFOL 200 MG/20 ML AMP IV ONE (12:00)
[2017-03-11] MEDS: traMADol HCL 50 MG TAB PO PRN ×2 (12:45→20:53)
--- NOTE | 2017-03-11 14:34 | HHI.PR ---
Subjective Remarks Follow-up vision changes. Status post temporal artery biopsy. Pathology pending. Patient has no complaints at this time. Has a small amount of pain at the site of the biopsy. Wants to go home. Objective Vitals Vital Signs Date Time Temp Pulse Resp B/P (MAP) Pulse Ox O2 Delivery O2 Flow Rate FiO2 03/11/17 12:51 97.3 94 18 170/108 (128) 97 03/11/17 12:20 86 16 96 Room Air 03/11/17 12:15 97.6 85 15 151/89 (109) 95 Room Air 03/11/17 12:00 87 15 140/78 (98) 95 Room Air 03/11/17 11:55 97.3 83 14 137/76 (96) 98 Simple Mask 7 03/11/17 08:34 98.2 72 20 199/98 (131) 97 03/11/17 05:26 97.4 79 20 172/97 (122) 95 03/11/17 01:04 97.5 86 20 162/95 (117) 95 03/10/17 20:34 97.8 105 20 161/83 (109) 94 03/10/17 16:41 97.3 93 20 161/93 (115) 96 I/O 03/10/17 03/10/17 03/10/17 03/11/17 03/11/17 03/11/17 06:59 14:59 22:59 06:59 14:59 22:59 Intake Total 738 ml 1600 ml Output Total 100 ml Balance 738 ml 1500 ml IV Total 738 ml 1600 ml Output Urine Total 100 ml # Voids 5 2 # Bowel Movements 4 Result Diagram: 03/07/17 0822 03/10/17 0620 Imaging Last Impressions Head Magnetic Resonance Angiography 03/07/17 0000 Signed Impressions: Service Date/Time: Tuesday, March 07, 2017 14:46 - CONCLUSION: 1. Limited examination due to motion artifact. 2. No evidence for large vessel occlusion or interval change from prior exams. 3. Redemonstration of hypoplastic right A1 segment. Jose Angel Rodriguez MD Brain MRI 03/07/17 0000 Signed Impressions: Service Date/Time: Tuesday, March 07, 2017 14:46 - CONCLUSION: 1. Stable periventricular and subcortical white matter small vessel ischemic white matter demyelination that is out of proportion for age. 2. No evidence for acute infarction or other acute intracranial abnormality. Jose Angel Rodriguez MD Head CT 03/06/17 1336 Signed Impressions: Service Date/Time: February 14:46 - CONCLUSION: 1. No acute intracranial abnormality identified. 2. Stable compared to previous dated 12/11/16. Eric Fields MD Carotid Artery Ultrasound 03/06/17 0000 Signed Impressions: Service Date/Time: February 19:51 - CONCLUSION: 1. Stable minimal calcified plaque in the right carotid bulb. No significant stenosis is present within either internal carotid artery. 2. There is antegrade flow in both vertebral arteries. Radu Charles MD Objective Remarks General: No acute distress. HEENT: Steri-Strips in place over surgical wound. Heart: Regular rate and rhythm. No murmur. Lungs: Clear to auscultation bilaterally. No wheezes, rales, or rhonchi. Breathing is nonlabored. Abdomen: Soft, nontender, nondistended. Extremities: No lower extremity edema. Psych: Alert and oriented. Neuro: Moves all extremities well. Speech is normal. Procedures None Urinary Catheter: No Vascular Central Line Catheter: No A/P Problem List: (1) TIA (transient ischemic attack) ICD Code: G45.9 - Transient cerebral ischemic attack, unspecified Status: Acute (2) Subtherapeutic international normalized ratio (INR) ICD Code: R79.1 - Abnormal coagulation profile (3) Hypothyroid ICD Code: E03.9 - Hypothyroidism Status: Chronic (4) CKD (chronic kidney disease), stage III ICD Code: N18.3 - Chronic kidney disease, stage 3 (moderate) Status: Chronic Assessment and Plan 1. TIA vs CVA: MRI/MRA show no acute change. Symptoms almost completely resolved at this time. Permissive hypertension. Continue neuro checks. PT/OT/ ST. Solu Medrol discontinued. Status post temporal artery biopsy to rule out temporal arteritis. Pathology pending. 2. Subtherapeutic INR: Restart Coumadin. Continue Lovenox. Monitor INR. 3. Hypothyroidism: Continue levothyroxine. 4. CKD with superimposed acute kidney injury: BUN/creatinine increased. Add IV fluids. 5. Lower extremity edema: Continue Lasix. 6. Hypokalemia: Supplement potassium. 7. Diabetes mellitus: Glucose elevated secondary to steroids. Diabetic diet. Monitor accu-check and cover with sliding scale insulin. Continue Levemir. 8. DVT prophylaxis: Lovenox. Discharge Planning Plan for discharge home when cleared by neurology. Gene Curtis MD Mar 11, 2017 14:34
[2017-03-11 16:18] LABS: BICARBONATE 26.3 MEQ/L (21.0-32.0); POTASSIUM 3.9 MEQ/L (3.5-5.1)
[2017-03-11] MEDS: WARFARIN SOD 7.5 MG TAB PO SCH (17:42)
--- NOTE | 2017-03-11 18:48 | HHI.PR ---
Subjective Subjective Notes Postop check Patient without complaint Objective Vitals/I&O Vital Signs Date Time Temp Pulse Resp B/P (MAP) Pulse Ox O2 Delivery O2 Flow Rate FiO2 03/11/17 17:45 97 21 03/11/17 16:35 98.5 107 18 160/87 (111) 03/11/17 12:20 Room Air 03/11/17 11:55 7 Labs Laboratory Tests Test 03/11/17 15:35 Blood Urea Nitrogen 27 Creatinine 1.22 Random Glucose 219 Calcium Level 8.5 Sodium Level 139 Potassium Level 3.9 Chloride Level 105 Carbon Dioxide Level 26.3 Anion Gap 8 Estimat Glomerular Filtration Rate 44 Narrative Exam 3 x 4 cm hematoma forming over operative site No oozing of incision A/P Assessment and Plan Postop hematoma Ice pack to surgical site Reynaldo Joseph MD Mar 11, 2017 18:48
[2017-03-11 19:16] LABS: INTERNATIONAL NORMALIZED RATIO 0.9 RATIO
--- NOTE | 2017-03-11 20:35 | HHI.PR ---
Review/Management Diagnosis possible temporal arteritis. Sed rate was normal but crp mildly elevated. very good response to steroids. Plan reduce prednisone to 50 mg daily ok to discharge tomorrow from neuro perspective on prednisone 50 mg daily to taper by 10 mg every 5 days until at 30 mg daily and continue at 30 mg daily until I see her in follow up as outpatient Please schedule outpatient follow up with me next week and I will follow up on the temporal artery biopsy result. Diagnosis/Plan: Subjective Subjective Comments No acute events reported s/p left temporal artery biopsy denies headache and vision is back to normal Active Medications Current Medications Medications (Trade) Dose Ordered Sig/Christal Route Start Time Stop Time Status Last Admin (NS Flush) 2 ml BID IV FLUSH 03/06/17 21:00 03/10/17 21:00 (NS Flush) 2 ml UNSCH PRN IV FLUSH 03/06/17 16:30 (Vasotec Inj) 1.25 mg Q4H PRN IV 03/06/17 16:30 (Aspirin Chew) 162 mg DAILY PO 03/06/17 18:00 03/10/17 08:48 (Lovenox Inj) 90 mg Q12H SQ 03/06/17 18:00 03/10/17 17:27 (Lipitor) 10 mg HS PO 03/06/17 21:00 03/10/17 21:40 (NovoLOG SUPPLEMENTAL SCALE) 1 ACHS SQ 03/06/17 21:00 03/11/17 17:22 (D50w (Vial) Inj) 50 ml UNSCH PRN IV PUSH 03/06/17 16:30 (Glucagon Inj) 1 mg UNSCH PRN OTHER 03/06/17 16:30 (Lasix) 20 mg BID PO 03/06/17 21:00 03/10/17 21:39 (Neurontin) 400 mg BID PO 03/06/17 21:00 03/10/17 21:39 (Synthroid) 75 mcg DAILY@0600 PO 03/07/17 06:00 03/10/17 05:55 (Ultram) 50 mg Q8H PRN PO 03/06/17 18:30 03/11/17 12:45 (KCl) 20 meq DAILY PO 03/07/17 17:00 03/10/17 08:47 Potassium Chloride/Sodium Chloride 1,000 ml @ 50 mls/hr Q20H IV 03/08/17 15:00 03/11/17 12:53 (Levemir Inj) 5 units Q12HR SQ 03/09/17 15:00 03/10/17 21:38 (Deltasone) 60 mg DAILY PO 03/10/17 12:00 03/10/17 12:46 (Pepcid) 10 mg Q12HR PO 03/10/17 21:00 Lactated Ringer's 1,000 ml @ 30 mls/hr Q24H PRN IV 03/11/17 08:15 03/14/17 08:14 Sodium Chloride 500 ml @ 30 mls/hr [id number] PRN IV 03/11/17 08:15 03/14/17 08:14 (Lopressor) 25 mg FISH PEDDLER PRN PO 03/11/17 08:15 03/14/17 08:14 (Betadine 5% Antisepsis Kit) 1 applic FISH PEDDLER PRN EACH NARE 03/11/17 08:15 03/14/17 08:14 (Chlorhexidine 2% Cloth) 3 pack FISH PEDDLER PRN TOPICAL 03/11/17 08:15 03/14/17 08:14 (NovoLIN R INJ) See Protocol Table ... FISH PEDDLER PRN SQ 03/11/17 08:15 03/14/17 08:14 Miscellaneous Information ALL NURSING DEPARTME... UNSCH PRN .XX 03/11/17 11:56 03/12/17 11:55 (Coumadin) 7.5 mg DAILY@16 PO 03/11/17 16:00 03/11/17 17:42 Allergies Allergies Coded Allergies Sulfa (Sulfonamide Antibiotics) (Unverified Allergy, Severe, Rash, 03/06/17) azithromycin (Unverified Allergy, Severe, Shortness of Breath, 03/06/17) cephalexin (Unverified Allergy, Severe, Itching, 03/06/17) diphenhydramine (Unverified Allergy, Severe, 03/06/17) doxycycline (Unverified Allergy, Severe, Shortness of Breath, 03/06/17) ibuprofen (Unverified Allergy, Severe, Rash, 03/06/17) minocycline (Unverified Allergy, Severe, Shortness of Breath, 03/06/17) penicillin G (Unverified Allergy, Severe, Shortness of Breath, 03/06/17) tigecycline (Unverified Allergy, Severe, Shortness of Breath, 03/06/17) vilanterol (Unverified Allergy, Severe, Dizziness, 03/06/17) fluticasone (Unverified Adverse Reaction, Severe, Dizziness, 03/06/17) fluticasone furoate (Unverified Adverse Reaction, Severe, Dizziness, 03/06/17) salmeterol (Unverified Adverse Reaction, Severe, Dizziness, 03/06/17) ciprofloxacin (Unverified Adverse Reaction, Intermediate, Nausea/Vomiting, ) Uncoded Allergies BROMIDE ( Allergy, Severe, Shortness of Breath, 06/21/14) FUROATE ( Allergy, Severe, Shortness of Breath, 06/21/14) MONOHYDRATE ( Allergy, Severe, Itching, 06/21/14) TIOTROPIUM ( Allergy, Severe, Dizziness, 06/21/14) TRIFENATATE ( Allergy, Severe, Shortness of Breath, 06/21/14) Exam I&O / VS 03/11/17 03/11/17 03/12/17 15:00 23:00 07:00 Intake Total 2080 ml Output Total 100 ml Balance 1980 ml Intake Oral 480 ml IV Total 1600 ml Output Urine Total 100 ml # Voids 4 # Bowel Movements 2 Vital Signs Date Time Temp Pulse Resp B/P (MAP) Pulse Ox O2 Delivery O2 Flow Rate FiO2 03/11/17 17:45 97 21 03/11/17 16:35 98.5 107 18 160/87 (111) 97 03/11/17 12:51 97.3 94 18 170/108 (128) 97 03/11/17 12:20 86 16 96 Room Air 03/11/17 12:15 97.6 85 15 151/89 (109) 95 Room Air 03/11/17 12:00 87 15 140/78 (98) 95 Room Air 03/11/17 11:55 97.3 83 14 137/76 (96) 98 Simple Mask 7 03/11/17 08:34 98.2 72 20 199/98 (131) 97 03/11/17 05:26 97.4 79 20 172/97 (122) 95 03/11/17 01:04 97.5 86 20 162/95 (117) 95 03/10/17 20:34 97.8 105 20 161/83 (109) 94 Exam Comments alert, speech normal CN intact, including visual mancini. MOTOR--no focal weakness Objective Micro and Labs Laboratory Tests Test 03/11/17 15:35 03/11/17 15:38 Blood Urea Nitrogen 27 Creatinine 1.22 Random Glucose 219 Calcium Level 8.5 Sodium Level 139 Potassium Level 3.9 Chloride Level 105 Carbon Dioxide Level 26.3 Anion Gap 8 Estimat Glomerular Filtration Rate 44 Prothrombin Time 10.0 Prothromb Time International Ratio 0.9 Almas Cruz PhD Mar 11, 2017 20:35
[2017-03-11] MEDS: ATORVASTATIN 10 MG TAB PO SCH (20:54)
[2017-03-12] VITALS (7 sets, daily range): BP systolic 131–161; BP diastolic 76–97; PULSE 77–107; RESP 15–18; TEMP 97.4–97.9; O2SAT 94–97
[2017-03-12 06:38] LABS: INTERNATIONAL NORMALIZED RATIO 0.9 RATIO; PROTHROMBIN TIME - PATIENT 10.2 SEC (9.8-11.6)
[2017-03-12] MEDS: ENOXAPARIN SODIUM 100 MG/ML SYRINGE SQ SCH ×2 (06:38→18:27)
[2017-03-12] MEDS: INSULIN ASPART SUPPLEMENTAL SCALE SQ SCH ×3 (06:39→16:21)
[2017-03-12] MEDS: LEVOTHYROXINE SODIUM 75 MCG TAB PO SCH (06:39)
[2017-03-12] MEDS: NS + KCL 20 MEQ INJ 1,000 ML IV SCH (06:39)
[2017-03-12] MEDS: FUROSEMIDE 20 MG TAB PO SCH (08:36)
[2017-03-12] MEDS: GABAPENTIN 400 MG CAP PO SCH (08:36)
[2017-03-12] MEDS: POTASSIUM CHLORIDE 20 MEQ CONTROLLED RELEASE TAB PO SCH (08:37)
[2017-03-12] MEDS: INSULIN DETEMIR 100 UNITS/ML VIAL SQ SCH (08:44)
[2017-03-12] MEDS: FAMOTIDINE 20 MG TAB PO SCH (08:44)
[2017-03-12] MEDS: SODIUM CHLORIDE 0.9% FLUSH 5 ML FLUSH IV FLUSH SCH (08:44)
[2017-03-12] MEDS: ASPIRIN 81 MG CHEW TAB PO SCH (09:00)
[2017-03-12] MEDS ORDERED: predniSONE 50 MG TAB PO SCH (09:00)
--- NOTE | 2017-03-12 11:04 | HHI.PR ---
Subjective Remarks Follow up vision changes, ?temporal arteritis. Patient has hematoma at site of temporal artery biopsy. She feels that it is "spreading". It feels uncomfortable. She has been using ice packs. No vision changes. Objective Vitals Vital Signs Date Time Temp Pulse Resp B/P (MAP) Pulse Ox O2 Delivery O2 Flow Rate FiO2 03/12/17 08:00 97.4 80 15 154/84 (107) 96 03/12/17 05:32 92 03/12/17 05:18 97.4 78 18 131/76 (94) 97 03/12/17 01:26 97.7 95 18 161/97 (118) 97 03/11/17 22:24 98.6 105 18 128/79 (95) 95 03/11/17 17:45 97 21 03/11/17 16:35 98.5 107 18 160/87 (111) 97 03/11/17 12:51 97.3 94 18 170/108 (128) 97 03/11/17 12:20 86 16 96 Room Air 03/11/17 12:15 97.6 85 15 151/89 (109) 95 Room Air 03/11/17 12:00 87 15 140/78 (98) 95 Room Air 03/11/17 11:55 97.3 83 14 137/76 (96) 98 Simple Mask 7 I/O 03/11/17 03/11/17 03/11/17 03/12/17 03/12/17 03/12/17 07:00 15:00 23:00 07:00 15:00 23:00 Intake Total 2080 ml Output Total 100 ml Balance 1980 ml Intake Oral 480 ml IV Total 1600 ml Output Urine Total 100 ml # Voids 2 4 2 # Bowel Movements 2 0 Result Diagram: 03/11/17 1535 Imaging Last Impressions Head Magnetic Resonance Angiography 03/07/17 0000 Signed Impressions: Service Date/Time: Tuesday, March 07, 2017 14:46 - CONCLUSION: 1. Limited examination due to motion artifact. 2. No evidence for large vessel occlusion or interval change from prior exams. 3. Redemonstration of hypoplastic right A1 segment. Jose Angel Rodriguez MD Brain MRI 03/07/17 0000 Signed Impressions: Service Date/Time: Tuesday, March 07, 2017 14:46 - CONCLUSION: 1. Stable periventricular and subcortical white matter small vessel ischemic white matter demyelination that is out of proportion for age. 2. No evidence for acute infarction or other acute intracranial abnormality. Jose Angel Rodriguez MD Head CT 03/06/17 1336 Signed Impressions: Service Date/Time: February 14:46 - CONCLUSION: 1. No acute intracranial abnormality identified. 2. Stable compared to previous dated 12/11/16. Eric Fields MD Carotid Artery Ultrasound 03/06/17 0000 Signed Impressions: Service Date/Time: February 19:51 - CONCLUSION: 1. Stable minimal calcified plaque in the right carotid bulb. No significant stenosis is present within either internal carotid artery. 2. There is antegrade flow in both vertebral arteries. Radu Charles MD Objective Remarks General: No acute distress. Sitting up in a chair. HEENT: Steri-Strips in place over surgical wound. Swelling along left lateral face, likely hematoma. Heart: Regular rate and rhythm. No murmur. Lungs: Clear to auscultation bilaterally. No wheezes, rales, or rhonchi. Breathing is nonlabored. Abdomen: Soft, nontender, nondistended. Extremities: No lower extremity edema. Psych: Alert and oriented. Neuro: Moves all extremities well. Speech is normal. Procedures None Urinary Catheter: No Vascular Central Line Catheter: No A/P Problem List: (1) TIA (transient ischemic attack) ICD Code: G45.9 - Transient cerebral ischemic attack, unspecified Status: Acute (2) Subtherapeutic international normalized ratio (INR) ICD Code: R79.1 - Abnormal coagulation profile (3) Hypothyroid ICD Code: E03.9 - Hypothyroidism Status: Chronic (4) CKD (chronic kidney disease), stage III ICD Code: N18.3 - Chronic kidney disease, stage 3 (moderate) Status: Chronic Assessment and Plan 1. TIA vs CVA: MRI/MRA show no acute change. Symptoms almost completely resolved at this time. Permissive hypertension. Continue neuro checks. PT/OT/ ST. Solu Medrol discontinued. Status post temporal artery biopsy to rule out temporal arteritis. Pathology pending. 2. Subtherapeutic INR: Restart Coumadin. Continue Lovenox. Monitor INR. 3. Hypothyroidism: Continue levothyroxine. 4. CKD with superimposed acute kidney injury: BUN/creatinine increased. Continue IV fluids. 5. Lower extremity edema: Continue Lasix. 6. Hypokalemia: Improved. 7. Diabetes mellitus: Glucose elevated secondary to steroids. Diabetic diet. Monitor accu-check and cover with sliding scale insulin. Continue Levemir. 8. DVT prophylaxis: Lovenox. 9. Hematoma at site of temporal artery biopsy: Continue ice packs. Discharge Planning Cleared for discharge by neurology. Will monitor hematoma today and consider discharge home later today or tomorrow. Gene Curtis MD Mar 12, 2017 11:04
[2017-03-12] MEDS ORDERED: ENOX100P SQ (11:31)
[2017-03-12] MEDS ORDERED: PRED10 PO (11:31)
[2017-03-12] MEDS ORDERED: ASPI81CH25 PO (11:31)
[2017-03-12] MEDS ORDERED: LIPI10TA PO (11:31)
[2017-03-12] MEDS: WARFARIN SOD 7.5 MG TAB PO SCH (17:36)
--- NOTE | 2017-03-12 17:46 | HHI.PR ---
Subjective Subjective Notes Hematoma actually decreased in size today Patient reports no pain Wants to eat Objective Vitals/I&O Vital Signs Date Time Temp Pulse Resp B/P (MAP) Pulse Ox O2 Delivery O2 Flow Rate FiO2 03/12/17 12:00 97.9 100 16 140/82 (101) 97 03/11/17 17:45 21 03/11/17 12:20 Room Air 03/11/17 11:55 7 Labs Laboratory Tests Test 03/12/17 04:20 Prothrombin Time 10.2 Prothromb Time International Ratio 0.9 Narrative Exam 3 x 4 cm hematoma stable and even smaller over operative site No oozing of incision A/P Assessment and Plan Postop hematoma; smaller today. No progression Discharge to home OK to restart aspirin and coumadin F/U my office next week; contact Dr. Cruz's office for instructions on prednisone and follow up pathology results on Friday03/14/17. Reynaldo Joseph MD Mar 12, 2017 17:46
--- NOTE | 2017-03-18 08:59 | MP ---
cc: LINDA TELLEZ M.D., JAMES A. M.D. DATE OF SURGERY 03/11/2017 PROCEDURE Left temporal artery biopsy. PREOPERATIVE DIAGNOSIS Left temporal headache with visual loss. POSTOPERATIVE DIAGNOSIS Left temporal headache with visual loss. ANESTHESIA IV sedation SURGEON MD Jake ESTIMATED BLOOD LOSS Less than 10 mL. FLUIDS 600 mL crystalloid COMPLICATIONS None. DRAINS None. SPECIMEN Left temporal artery segments to pathology. PROCEDURE IN DETAIL The patient was seen in the holding area and the left side marked by the patient by the undersigned confirmed by the patient. She was taken to the operating room and placed on the operating table in the supine position. After IV sedation was begun, the left temporal region was shaved, prepped and draped. Time-out was taken confirming the correct patient, site and procedure to be performed. The skin and subcutaneous tissue was infiltrated with local anesthetic without epinephrine and a longitudinal incision was made anterior to the preauricular region. The dissection was carried down with electrocautery through the subcutaneous tissue. Sharp dissection was then used to identify the artery with the use of the Doppler as confirmation. The artery was dissected proximal and distal and ligated with silk suture and divided. An additional segment of artery was taken as additional length was able to be dissected out. Both were submitted in formalin. All bleeding was meticulously controlled with electrocautery. The wound was closed in two layers with interrupted 3-0 Vicryl suture and 5-0 PDS in a running subcuticular fashion. The wound was dressed with Steri-Strips. The patient was taken back to the recovery room in stable condition. Sponge and needle counts were reported to be correct. MD FAREED Ramirez/SSB /7:56 PM /8:50 AM
--- NOTE | 2017-04-08 16:02 | HHI.DS ---
Discharge Summary Admission Date Mar 06, 2017 at 16:28 Discharge Date: Mar 12, 2017 Admitting Diagnosis VISUAL CHANGES; FACIAL paresthesias, subtherapeutic INR (1) TIA (transient ischemic attack) ICD Code: G45.9 - Transient cerebral ischemic attack, unspecified Status: Acute (2) Subtherapeutic international normalized ratio (INR) ICD Code: R79.1 - Abnormal coagulation profile (3) Hypothyroid ICD Code: E03.9 - Hypothyroidism Status: Chronic (4) CKD (chronic kidney disease), stage III ICD Code: N18.3 - Chronic kidney disease, stage 3 (moderate) Status: Chronic Procedures None Brief History - From Admission 66 y/o female with a history of CVA 2016 on Coumadin, HTN, Afib, hypothyroid, and UTI's presented to the ED with complaints of peripheral vision loss on her left side. Patient states it began about noon today and she was unable to see to the left, she states it looked like images were overlapping, and light flashing. She also had associated numbness on her left face with tingling. She denies any weakness in her upper or lower extremities. She denies any chest pain, shortness of breath, fever or chills. She states she follows with Dr. Candelario for Coumadin levels. Imaging Last Impressions Head Magnetic Resonance Angiography 03/07/17 0000 Signed Impressions: Service Date/Time: Tuesday, March 07, 2017 14:46 - CONCLUSION: 1. Limited examination due to motion artifact. 2. No evidence for large vessel occlusion or interval change from prior exams. 3. Redemonstration of hypoplastic right A1 segment. Jose Angel Rodriguez MD Brain MRI 03/07/17 0000 Signed Impressions: Service Date/Time: Tuesday, March 07, 2017 14:46 - CONCLUSION: 1. Stable periventricular and subcortical white matter small vessel ischemic white matter demyelination that is out of proportion for age. 2. No evidence for acute infarction or other acute intracranial abnormality. Jose Angel Rodriguez MD Head CT 03/06/17 1336 Signed Impressions: Service Date/Time: February 14:46 - CONCLUSION: 1. No acute intracranial abnormality identified. 2. Stable compared to previous dated 12/11/16. Eric Fields MD Carotid Artery Ultrasound 03/06/17 0000 Signed Impressions: Service Date/Time: February 19:51 - CONCLUSION: 1. Stable minimal calcified plaque in the right carotid bulb. No significant stenosis is present within either internal carotid artery. 2. There is antegrade flow in both vertebral arteries. Radu Charles MD PE at Discharge General: No acute distress. Sitting up in a chair. HEENT: Steri-Strips in place over surgical wound. Swelling along left lateral face, likely hematoma. Heart: Regular rate and rhythm. No murmur. Lungs: Clear to auscultation bilaterally. No wheezes, rales, or rhonchi. Breathing is nonlabored. Abdomen: Soft, nontender, nondistended. Extremities: No lower extremity edema. Psych: Alert and oriented. Neuro: Moves all extremities well. Speech is normal. Hospital Course The patient was admitted for further management of vision loss and facial numbness. Neurology was consulted. Patient was treated for TIA versus CVA. Further workup was continued for possible temporal arteritis. Gen. surgery was consulted for temporal artery biopsy, which was performed. She developed postoperative hematoma. This improved. She was cleared for discharge by neurology. General surgery reevaluated the hematoma and cleared patient for discharge as well. Coumadin and aspirin were restarted. Pt Condition on Discharge: Stable Discharge Disposition: Discharge Home Discharge Time: > 30 minutes Discharge Instructions DIET: Follow Instructions for: Heart Healthy Diet, Diabetic Diet Speech Therapy-Diet Recommends: Regular Activities you can perform: Regular-No Restrictions Follow up Referrals: Neurology - 1 Week with Almas Cruz PhD PCP Follow-up - 2 Weeks New Medications: Prednisone (Prednisone) 10 Mg Tab 10 MG PO DIRECTED for Inflammation, #100 TAB 0 Refills 50mg daily x 5 days, then 40mg daily x 5 days, then 30mg daily Aspirin (Aspirin Low Strength) 81 Mg Chew 162 MG PO DAILY for Blood Clot Prevention, #30 EA 0 Refills Atorvastatin (Lipitor) 10 Mg Tab 10 MG PO HS for Cholesterol Management, #30 TAB 0 Refills Enoxaparin Inj (Lovenox Inj) 100 Mg/Ml Syr 90 MG SQ Q12H for Blood Clot Prevention, #30 INJECTION 0 Refills Continued Medications: Acetaminophen (Tylenol) 325 Mg Tab 325 MG PO Q6H PRN for pain, TAB 0 Refills Furosemide (Furosemide) 20 Mg Tab 20 MG PO BID, #60 TAB 0 Refills Gabapentin (Gabapentin) 400 Mg Cap 400 CAP PO BID, #30 CAP 0 Refills Levothyroxine (Levothyroxine) 75 Mcg Tab 75 MCG PO DAILY for Thyroid, #30 TAB 0 Refills Magnesium Citrate (Magnesium Citrate) 100 Mg Tab 100 MG PO DAILY PRN for CONSTIPATION, TAB 0 Refills Melatonin (Melatonin) 10 Mg Tab 10 MG PO HS PRN for SLEEP, TAB 0 Refills Warfarin (Warfarin) 7.5 Mg Tab 7.5 MG PO DAILY for Blood Clot Prevention, #30 TAB 0 Refills Discontinued Medications: Cyclobenzaprine (Flexeril) 10 Mg Tab 10 MG PO TID for Muscle Spasm, #90 TAB 0 Refills Warfarin (Warfarin) 5 Mg Tab 5 MG PO DAILY for Blood Clot Prevention, #30 TAB 0 Refills Gene Curtis MD Apr 08, 2017 16:02
== END 2017-03-12 18:45 | disposition home or self-care (01) | DRG 41 ==
LOC: NEPC 13:14 → NEDA 16:28 → N05B 17:38
PROVIDERS: ADMIT Family Medicine; ATTEND Family Medicine
PROC: 03BT0ZX Excision of Left Temporal Artery, Open Approach, Diagnostic (ICD-10-PCS; principal; 2017-03-11 10:45)
DX: G45.9 Transient cerebral ischemic attack, unspecified (principal); N17.9 Acute kidney failure, unspecified; L76.32 Postprocedural hematoma of skin and subcutaneous tissue following other procedure; E03.9 Hypothyroidism, unspecified; R79.1 Abnormal coagulation profile; I12.9 Hypertensive chronic kidney disease with stage 1 through stage 4 chronic kidney disease, or unspecified chronic kidney disease; N18.3 Chronic kidney disease, stage 3 (moderate); I48.91 Unspecified atrial fibrillation; Z86.73 Personal history of transient ischemic attack (TIA), and cerebral infarction without residual deficits; Z79.01 Long term (current) use of anticoagulants; H54.7 Unspecified visual loss; E87.6 Hypokalemia; R20.0 Anesthesia of skin; Z87.440 Personal history of urinary (tract) infections; E11.9 Type 2 diabetes mellitus without complications
CPT/HCPCS: 70450; 70544; 70551; 80048; 80061; 82948; 83036; 84443; 85025; 85610; 85652; 85730; 86140; 88304; 88305; 93005; 93306; 93880; J1650; J1815; J2930; J3480; J7060; J7512

== ENCOUNTER 2017-03-25 10:36 | Emergency (ER) | payer MEDICARE, MEDICAID ==
[~2017-03-25] VITALS: Ht 160 cm; Wt 88.0 kg
[~2017-03-25 10:36] MED LIST changes: +ASPI81CH25 PO; -CARD120C4 PO; -CYCL1TAB29 PO; +ENOX100P SQ; +LIPI10TA PO; +PRED10 PO; +WARF-21 PO
[2017-03-25 10:37] VITALS: BP 157/100; PULSE 115; RESP 17; TEMP 98.7; O2SAT 95
[2017-03-25 11:50] VITALS: PULSE 96
--- NOTE | 2017-03-25 11:51 | PD ---
HPI Chief Complaint: ENT Complaint Time Seen by Provider: 11:50 Travel History International Travel<30 days: No Contact w/Intl Traveler<30days: No Traveled to known affect area: No History of Present Illness HPI 66-year-old female presents to the emergency Department with complaint of nasal congestion, bilateral ear pain, throat pain 2-3 days. Reports subjective fever but has not taken her temperature and cannot reported MAXIMUM TEMPERATURE. Denies chest pain, shortness of breath, abdominal pain, vomiting. Denies lump in throat, difficulty swallowing, unusual drooling. Reports painful swallowing. Says it is easier to swallow cold foods and drinks than warm foods and drinks. Has been using throat drops for symptom management. Patient has noticeable bruising to the left side of the face; she had a temporal artery biopsy on March 11. Has no other medical complaints. Symptoms are mild in severity. Multiple allergies as listed on her chart. No other modifying factors or associated signs and symptoms. 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) Cancer: No Cardiac Catheterization: No Cardiovascular Problems: Yes (AFIB, HTN ) High Cholesterol: Yes Chemotherapy: No Chest Pain: No Congestive Heart Failure: No COPD: No Cerebrovascular Accident: Yes (2014) Diabetes: No Diminished Hearing: No Endocrine: Yes Gastrointestinal Disorders: Yes GERD: No Genitourinary: Yes Headaches: Yes Hiatal Hernia: Yes Heparin Induced Thrombocytopen: No Hypertension: Yes Immune Disorder: Yes Implanted Vascular Access Dvce: Yes Kidney Stones: No Musculoskeletal: Yes Neurologic: Yes (STROKE IN THE PAST-05) Psychiatric: Yes Reproductive: No Respiratory: Yes (ASTHMA) Migraines: Yes Pneumonia: Yes Radiation Therapy: No Renal Failure: Yes (resolved) Seizures: No Sleep Apnea: No Thyroid Disease: Yes Ulcer: Yes ?: Not Menopausal: Yes : 6 Para: 4 Miscarriage: 2 Tubal Ligation: Yes Past Surgical History Abdominal Surgery: Yes (HIATAL HERNIA REPAIR) Appendectomy: Yes Body Medical Devices: luppe recorder Cholecystectomy: Yes Coronary Artery Bypass Graft: No Ear Surgery: No Endocrine Surgery: No Eye Surgery: No Gynecologic Surgery: Yes (RIGHT OVARY REMOVED) Hysterectomy: No Oral Surgery: No Other Surgery: Yes (LUIZ CARP RELEASE, right OVARY, R SHOULDER,R KNEE, R SHOULDER REPAIR) Family History Family Myocardial Infarction: Yes Social History Alcohol Use: Yes (OCCASIONALLY) Tobacco Use: No Substance Use: No Allergies-Medications (Allergen,Severity, Reaction): Coded Allergies: Sulfa (Sulfonamide Antibiotics) (Unverified Allergy, Severe, Rash, 03/25/17 ) azithromycin (Unverified Allergy, Severe, Shortness of Breath, 03/25/17) cephalexin (Unverified Allergy, Severe, Itching, 03/25/17) diphenhydramine (Unverified Allergy, Severe, 03/25/17) PT STATES HIVES, DIFFICULTY BREATHING doxycycline (Unverified Allergy, Severe, Shortness of Breath, 03/25/17) ibuprofen (Unverified Allergy, Severe, Rash, 03/25/17) minocycline (Unverified Allergy, Severe, Shortness of Breath, 03/25/17) penicillin G (Unverified Allergy, Severe, Shortness of Breath, 03/25/17) tigecycline (Unverified Allergy, Severe, Shortness of Breath, 03/25/17) vilanterol (Unverified Allergy, Severe, Dizziness, 03/25/17) fluticasone (Unverified Adverse Reaction, Severe, Dizziness, 03/25/17) fluticasone furoate (Unverified Adverse Reaction, Severe, Dizziness, ) salmeterol (Unverified Adverse Reaction, Severe, Dizziness, 03/25/17) ciprofloxacin (Unverified Adverse Reaction, Intermediate, Nausea/Vomiting , 03/25/17) Uncoded Allergies: BROMIDE (Allergy, Severe, Shortness of Breath, 06/21/14) FUROATE (Allergy, Severe, Shortness of Breath, 06/21/14) MONOHYDRATE (Allergy, Severe, Itching, 06/21/14) TIOTROPIUM (Allergy, Severe, Dizziness, 06/21/14) TRIFENATATE (Allergy, Severe, Shortness of Breath, 06/21/14) Reported Meds & Prescriptions Reported Meds & Active Scripts Active Prednisone 10 Mg Tab 10 Mg PO DIRECTED 50mg daily x 5 days, then 40mg daily x 5 days, then 30mg daily Aspirin Low Strength (Aspirin) 81 Mg Chew 162 Mg PO DAILY Lipitor (Atorvastatin Calcium) 10 Mg Tab 10 Mg PO HS Lovenox Inj (Enoxaparin Sodium) 100 Mg/Ml Syr 90 Mg SQ Q12H Reported Warfarin 7.5 Mg Tab 7.5 Mg PO DAILY Magnesium Citrate 100 Mg Tab 100 Mg PO DAILY PRN Tylenol (Acetaminophen) 325 Mg Tab 325 Mg PO Q6H PRN Melatonin 10 Mg Tab 10 Mg PO HS PRN Levothyroxine (Levothyroxine Sodium) 75 Mcg Tab 75 Mcg PO DAILY Gabapentin 400 Mg Cap 400 Cap PO BID Furosemide 20 Mg Tab 20 Mg PO BID Review of Systems Except as stated in HPI: all other systems reviewed are Neg Physical Exam Narrative GENERAL: Well-nourished, well-developed female patient, in no acute distress; afebrile, nontoxic-appearing SKIN: Warm and dry. No rash. 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 No signs of infection. HEAD: Atraumatic. Normocephalic. EYES: Pupils equal and round. No scleral icterus. No injection or drainage. ENT: Mucosa pink and moist. No erythema or exudates. No uvular edema. No uvular , palatal, or tonsillar deviation. Airway patent. EARS: Bilateral pinnae and external canals appear within normal limits. Bilateral tympanic membranes without erythema, dullness or perforation. NECK: Trachea midline. No lymphadenopathy. CARDIOVASCULAR: Regular rate and rhythm. No murmur appreciated. RESPIRATORY: No accessory muscle use. Clear to auscultation. Breath sounds equal bilaterally. No retractions or tachypnea. GASTROINTESTINAL: Obese. MUSCULOSKELETAL: No obvious deformities. No clubbing. No cyanosis. No edema. NEUROLOGICAL: Awake and alert. Oriented 3. No obvious cranial nerve deficits. Motor grossly within normal limits. Normal speech. Moves all extremities. 5/5 strength to all extremities. PSYCHIATRIC: Appropriate mood and affect; insight and judgment normal. Data Data Last Documented VS Vital Signs Date Time Temp Pulse Resp B/P (MAP) Pulse Ox O2 Delivery O2 Flow Rate FiO2 03/25/17 11:50 96 03/25/17 10:37 98.7 17 95 Orders Orders Influenzae A/B Antigen (03/25/17 11:50) Group A Rapid Strep Screen (03/25/17 11:50) Strep Culture (Group A) (03/25/17 12:05) MDM Medical Decision Making Medical Screen Exam Complete: Yes Emergency Medical Condition: Yes Medical Record Reviewed: Yes Differential Diagnosis Viral illness, viral pharyngitis, strep pharyngitis, upper respiratory infection , less likely peritonsillar abscess Narrative Course 66-year-old female with cold/flu symptoms the last 2-3 days. Patient is afebrile and nontoxic-appearing. She reports subjective fever at home. Denies vomiting. Patient had surgery on March 11 of the left temporal artery for biopsy. She does have stage IV ecchymosis to the left facial cheek area. There are no signs of infection. The area is tender on palpation. Patient was given fluids at the bedside and she is able to swallow without complication of coughing, choking, regurgitation. Influenza and rapid strep ordered. 1251: Rapid strep and influenza negative. Discussed viral illness and symptomatic management. Instructed patient to follow up with primary care provider. Patient verbalizes understanding and agreement with treatment plan. Patient is medically cleared and stable for discharge. Discussed reasons to return to the emergency department. Patient agrees with treatment plan. The patients vital signs are stable and the patient is stable for outpatient follow- up and treatment. Patient discharged home, stable and in no acute distress. Diagnosis Primary Impression: Viral illness Referrals: Primary Care Physician Patient Instructions: Cold Symptoms (ED), General Instructions, Safe Use of Cough and Cold Medicines (ED) Additional Instructions: Ibuprofen or Tylenol as directed and as needed to reduce fever/pain [id number] cold/flu medications as directed and as needed for symptom management Get plenty of sleep/rest Drink plenty of fluids to prevent dehydration; such as Gatorade, Powerade, Pedialyte Spencer diet to encourage nutrition such as crackers, fruit, applesauce, toast, soup etc. Use an air humidifier/turn off ceiling fans Follow-up with your primary care provider within 1 day Return immediately to the emergency department with worsening of symptoms Med/Other Pt SpecificInfo: No Meds Exist/No RX given Disposition: 01 DISCHARGE HOME Condition: Stable Ritika Barbosa Mar 25, 2017 11:51
== END 2017-03-25 13:18 | disposition home or self-care (01) ==
LOC: EDTENT 10:36
DX: B34.9 Viral infection, unspecified (principal); I48.91 Unspecified atrial fibrillation; Z79.01 Long term (current) use of anticoagulants; I10 Essential (primary) hypertension; E03.9 Hypothyroidism, unspecified
CPT/HCPCS: 87081; 87804; 87880; 99283

== ENCOUNTER 2017-06-25 12:47 | Day surgery (SDC) | payer MEDICARE ==
[~2017-06-25] VITALS: Ht 162.6 cm; Wt 80.0 kg
[2017-06-25] MEDS ORDERED: SODIUM CHLORID 0.9% 500 ML BAG OTHER ONE (12:48)
[2017-06-25] MEDS ORDERED: SODIUM CHLORID 0.9% 500 ML IV PRN (14:00)
[2017-06-25] MEDS ORDERED: LORazepam 1 MG TAB SL SCH (14:00)
[2017-06-25] MEDS ORDERED: LACTATED RINGER'S 1000 ML IV PRN (14:00)
[2017-06-25] MEDS ORDERED: SODIUM CHLORID 0.9% 500 ML INJ 500 ML IV SCH (14:00)
[2017-06-25] MEDS ORDERED: CHLORHEXIDINE GLUCONATE 2 % 1 PACK (2 CLOTHS) TOPICAL PRN (14:00)
[2017-06-25] MEDS ORDERED: METOPROLOL TARTRATE 25 MG TAB PO PRN (14:00)
[2017-06-25] MEDS ORDERED: POVIDONE IODINE 5% (ANTISEPSIS KIT) 4 APPLICATIONS EACH NARE PRN (14:00)
[2017-06-25] MEDS ORDERED: INSU1INJ5 SQ (14:16)
[2017-06-25] MEDS ORDERED: TRAM50TA PO (14:16)
[2017-06-25] MEDS ORDERED: VITA100064 PO (14:16)
[2017-06-25] MEDS ORDERED: MULT-65 PO (14:16)
[2017-06-25] MEDS ORDERED: CARD180C5 PO (14:16)
[2017-06-25 14:22] LABS: INTERNATIONAL NORMALIZED RATIO 1.9 RATIO; PROTHROMBIN TIME - PATIENT 19.5 SEC (9.8-11.6)
[2017-06-25 14:49] VITALS: BP 149/92; PULSE 76; RESP 18; TEMP 98; O2SAT 94
[2017-06-25 15:11] LABS: ALKALINE PHOSPHATASE 116 U/L (45-117); ALT (GPT) 24 U/L (10-53); ANION GAP 10 MEQ/L (5-15); AST (GOT) 9 U/L (15-37); BICARBONATE 27.2 MEQ/L (21.0-32.0); BLOOD UREA NITROGEN 23 MG/DL (7-18); CHLORIDE 102 MEQ/L (98-107); GLOMERULAR FILTRATION RATE 51 ML/MIN (>89); SODIUM (NA) 139 MEQ/L (136-145); TOTAL BILIRUBIN ADULT 0.4 MG/DL (0.2-1.0)
[2017-06-25 15:24] LABS: POTASSIUM 2.8 MEQ/L (3.5-5.1)
[2017-06-25 15:38] LABS: AUTOMATED NEUTROPHIL # 5.5 TH/MM3 (1.8-7.7); BASOPHIL % 0.5 % (0.0-2.0); EOSINOPHIL # 0.1 TH/MM3 (0-0.4); EOSINOPHIL % 1.2 % (0.0-4.0); HEMATOCRIT 44.4 % (35.0-46.0); HEMO FLAGS DIFF FINAL; LYMPH % 37.6 % (9.0-44.0); LYMPHOCYTE # 3.9 TH/MM3 (1.0-4.8); MEAN CELL VOLUME 89.9 FL (80.0-100.0); MEAN CORPUSCULAR HEMOGLOBIN 30.4 PG (27.0-34.0); MEAN CORPUSCULAR HGB CONC 33.8 % (32.0-36.0); MONO % 7.3 % (0.0-8.0); NEUT % 53.4 % (16.0-70.0); PLATELET COUNT 304 TH/MM3 (150-450); RED BLOOD COUNT 4.94 MIL/MM3 (4.00-5.30); RED CELL DISTRIBUTION WIDTH 12.3 % (11.6-17.2); WHITE BLOOD COUNT 10.4 TH/MM3 (4.0-11.0)
[2017-06-25] MEDS ORDERED: POTASSIUM CHLOR 20 MEQ PREMIX 200 ML ONE (16:19)
[2017-06-25] MEDS ORDERED: HEPARIN-NS/PF INJ 2,000 ML ONE (16:49)
[2017-06-25] MEDS ORDERED: ISOPROTERENOL HCL 1 MG/5 ML AMP ONE (16:56)
[2017-06-25] MEDS ORDERED: HEPARIN SODIUM - IV 10,000 UNITS/10 ML VIAL ONE (16:56)
[2017-06-25] MEDS ORDERED: FUROSEMIDE 40 MG/4 ML VIAL ONE (16:58)
[2017-06-25] MEDS ORDERED: PROTAMINE SULFATE 50 MG/5 ML VIAL ONE (16:58)
[2017-06-25] MEDS ORDERED: HEPARIN-D5W 25,000 U/250 ML 250 ML ONE (17:00)
[2017-06-25] MEDS ORDERED: VANCOMYCIN HCL 1000 MG VIAL ONE (17:26)
[2017-06-25] MEDS ORDERED: SODIUM CHLOR 0.9% 250 ML INJ 250 ML ONE (17:27)
--- NOTE | 2017-06-25 20:21 | CATHPROC ---
[facility] Pan[facility] HIS Report Study Information Study Number Admission Scheduled Start Study Start [id number] Jun 25 2017 12:47PM 06/25/2017 Jun 25 2017 4:13PM [place] Service Electrophysiology Study Admit Source Facility Department Other [facility] Physician and Clinical Staff Initial Jagruti Schwartz Rag Baler Dalton Page,RT(R) Other Anesthesia, OXYGEN PLANT OPERATOR Recorder Radha Prince,CEZAR Recorder Ana Licona RN Recorder Alessandra Lee,CEZAR Scrub Sheila Maldonado,MARILIN TECH2 Procedures Performed Procedure Location (Site) Vessel Name Ablation Procedure CRYO Ablation LIPV LIPV CRYO Ablation LSPV LSPV CRYO Ablation RIPV RIPV CRYO Ablation RSPV RSPV ICE CATHETER INSERT RA Atruim Venogram LIPV LIPV Venogram LSPV LSPV Venogram RIPV RIPV Venogram RSPV RSPV Equipment Time Supervisor Toy Parts Former Description Size Mfg Part Number Used/Scraped COPILOT VALVE, BLEEDBACK [id number] 17:35 [employer] Used CONTROL *[id number] COPILOT VALVE, BLEEDBACK [id number] 18:15 [employer] Used CONTROL *[id number] TRANSDUCER, TRUWAVE [id number] 17:35 PLASENCIA SANDOVAL * Used W/[employer]. *[id number] NEEDLE, TRANSSEPTAL NRG 98 17:35 [facility] [id number] Used C1 BIOSENSE LEIVA 18:07 SET, TUBING COOLFLOW * [id number] Used INC. COVER, TRANSDUCER CABLE 17:35 [employer] 612-113 Used ACUNAV 17:35 CONMED LEADWIRE, DEFIBRILLATION PAD 2001M-PC Used SHEATH SET, FR12 CHECK-PARK RCF-12.0-38-J 17:35 COOK/PACER FR12 Used 13CM *[id number] SHEATH SET, FR12 CHECK-PARK RCF-12.0-38-J 17:59 COOK/PACER FR12 Used 13CM *[id number] 17:35 CORDIS/PACER SHEATH, FR10 KELSI 11CM FR 10 [id number] Used [id number] 17:35 [employer] INDUSTRIES PACK, CCL CUSTOM * Used *[id number] 17:35 MEDLINE PACER SORIANO, LIMB * 2530 *[id number] Used PSI-4F-11- 17:35 [employer] MEDICAL SHEATH, FR4.5 PRELUDE 11CM FR 4.5 Used [id number] 17:35 [employer] MEDICAL WIRE, 3MMJ .035 180CM 180CM Used *[id number] 17:35 NAMIC MANIFOLD, 4 PORT * Used *[id number] 17:35 NAMIC TUBING, HIGH PRESSURE 20" 20" Used *[id number] 17:35 NAMIC TUBING, HIGH PRESSURE 48" 48" Used *1699198 [id number] 17:35 NAMIC TUBING, HIGH PRESSURE 48" 48" Used *[id number] TUBING, PRESSURE MONITORING [id number] 17:35 NAMIC PACER 72" Used 72" *3408030 17:58 [employer] OMNIPAQUE, 300 MG, 150ML 150ML [id number] Used [id number] 17:35 [facility] BLANKET,WARM AIR CCL * Used *[id number] 869446 17:35 [facility] MEDICAL CATHETER, JSN, QUAD FR 5 Used *[id number] 462042 17:35 [facility] MEDICAL CATHETER, JSN, QUAD FR 5 Used *[id number] 17:35 [facility] [employer] MEDICAL ELECTRODE KIT, MELY X SURFACE * Used *5070608 219788 17:35 [facility] MEDICAL SHEATH, EPS, FR6 FAST CATH FR 6 Used *5394017 17:35 [facility] [employer] MEDICAL SHEATH, EPS, FR7 FAST CATH FR 7 [id number] Used 745699 17:35 [facility] MEDICAL SHEATH, EPS, FR8 FAST CATH FR 8 Used *[id number] CATHETER, ACUNAV FR10 ICE [id number] 17:45 ARIELA FR 10 Used (ARIELA) *0875918 [facility] PAD, ELECTROSURGICAL 17:35 * [id number] *[id number] Used SURGICAL GROUNDING (BLUE) BALLOON, ARCTIC FRONT [id number] 18:18 [employer] Used ADVANCE 28MM *[id number] CATHETER, ACHEIVE MAPPING 2ACH20 18:11 [employer] 20MM Used 20MM *[id number] SHEATH, FR12 FLEXCATH 17:44 [employer] FR 12 [id number] Used STEERABLE Equipment Model, Serial, Lot Number and Expiration Data Description Model Number Serial Number Lot Number Expiration Date CATHETER, ACHEIVE MAPPING [id number] 10-23-2018 20MM History: Allergies Allergy Reaction azithromycin Shortness of Breath Benadryl cephalexin Itching ciprofloxacin Nausea/Vomiting doxycycline Shortness of Breath fluticasone Dizziness ibuprofen Rash Penicillin Shortness of Breath Sulfa Rash Tetracycline Shortness of Breath vilanterol Dizziness BROMIDE Shortness of Breath FUROATE Shortness of Breath MONOHYDRATE Itching TIOTROPIUM Dizziness TRIFENATATE Shortness of Breath Sulfa (Sulfonamide Antibiotics) Rash salmeterol Dizziness diphenhydramine minocycline Shortness of Breath penicillin G Shortness of Breath tigecycline Shortness of Breath fluticasone furoate Dizziness History: Risk Factors Hypertension Dyslipidemia Yes Yes Cerebrovascular Diabetes Diabetes Therapy Disease Labs Hgb (g/dl) Hct (%) RBC (MIL/MM3) WBC (l/cumm) Platelets (thousands) 11.60-17.00 35.00-51.00 4.00-5.90 4.00-11.00 150.00-450.00 11.0 44 4 10 304 Glucose (mg/dl) BUN (mg/dl) Creatinine (mg/dl) BUN:Creatinine (1:x) 74.00-106.00 7.00-18.00 0.50-1.30 10.00-20.00 146 23 1.0 23 Na (meq/l) K (meq/l) 136.00-145.00 3.50-5.10 135 2.1 INR (PTT:PT) 0.90-1.10 1.9 Medication Medication Total Dose (Bolus/Oral) Medication Total Dosage/Unit 1% XYLOCAINE 40 mL HEPARIN 8000 units PROTAMINE 40 mg Medications (Bolus/Oral) Medication Time Given Dosage/Unit Administered By Reason 1% XYLOCAINE 06/25/2017 5:36:37 PM 20 mL Jagruti Spencer 20 mL 1% XYLOCAINE given in lab by Jagruti Spencer in Left Groin via Subcutaneous. 1% XYLOCAINE 06/25/2017 5:41:46 PM 20 mL Jagruti Spencer 20 mL 1% XYLOCAINE given in lab by Jagruti Spencer in Right Groin via Subcutaneous. HEPARIN 06/25/2017 5:55:29 PM 8000 units Anesthesia, OXYGEN PLANT OPERATOR As per physicians v erbal order 8000 units HEPARIN given in lab by Anesthesia, OXYGEN PLANT OPERATOR via Peripheral IV. Ordered by Jagruti Spencer. Reas on: As per physicians verbal order. PROTAMINE 06/25/2017 7:31:02 PM 40 mg Anesthesia, OXYGEN PLANT OPERATOR As per physicians victor manuel bal order 40 mg PROTAMINE given in lab by Anesthesia, OXYGEN PLANT OPERATOR via Peripheral IV. Ordered by Jagruti Spencer. Reason: As per physicians verbal order. Medication (Drip) Medication Time Given Dosage/Unit Concentration/Unit Diluent (ml) Solution ISUPREL 06/25/2017 7:16:27 PM 20 mcg/min 1 mg 250 NaCl .9 20 mcg/min ISUPREL given in lab by Anesthesia, OXYGEN PLANT OPERATOR via Peripheral IV. Pump/Drip Flow = 300 ml/hr usi ng NaCl .9 with a concentration of 1 mg in 250 ml. Ordered by Jagruti Spencer. Reason: As per physicians verbal order. POTASSIUM DRIP 06/25/2017 5:02:38 PM 10 meq/hr 40 meq 500 D5W .9 NaCl 10 meq/hr POTASSIUM DRIP given in lab by Anesthesia, OXYGEN PLANT OPERATOR via Peripheral IV. Pump/Drip Flow = 125 ml/ hr using D5W .9 NaCl with a concentration of 40 meq in 500 ml. Ordered by Jagruti Spencer. Reason: As per physicians verbal order. VANCOMYCIN DRIP 06/25/2017 5:35:06 PM 1 g 1 g VANCOMYCIN DRIP given in lab by Anesthesia, OXYGEN PLANT OPERATOR via Peripheral IV. Ordered by Jagruti Spencer. Sorento son: As per physicians verbal order. armendariz insertion Initial Case Assessment Cardiovascular HR Rhythm NIBP 83 SR 132/90 Edema Present Skin color Skin None Normal Warm Dry Circulatory - Right Pulses Dorsalis Pedis 1 Scale (0,1,2,3,4,d) Circulatory - Left Pulses Dorsalis Pedis 1 Scale (0,1,2,3,4,d) Circulatory - Lower Extremities Color Lower Right Color Lower Left Normal Normal Neurological State Oriented to time-place- Alert Moves all extremities person Respiration - General Respiration Rate SpO2 (%) (B/min) 20 93 Final Case Assessment Cardiovascular HR Rhythm NIBP Chest Pain 85 sr 106/55 0 Edema Present Skin color Skin None Normal Warm Dry Circulatory - Right Pulses Dorsalis Pedis 3 Scale (0,1,2,3,4,d) Circulatory - Left Pulses Dorsalis Pedis 3 Scale (0,1,2,3,4,d) Circulatory - Lower Extremities Color Lower Right Color Lower Left Normal Normal Neurological State Lethargic Moves all extremities Respiration - General Respiration Rate SpO2 (%) (B/min) 16 96 Chronological Log Time Study Chronological Log 16:25:54 Patient arrived via Bed. 16:25:56 Patient Name, D.O.B, / Armband Verified By R.N. 16:25:57 Consent signed by the physician and the patient and verified by the [facility] staff. 16:25:58 Pre-op and post- op instructions given; patient acknowledges understanding of instructions. 16:26:14 Patient has been NPO for More than 6Hrs. 16:26:21 Verbal Stimulation=2 Physical Stimulation=2 Airway=2 Respiration=2 TOTAL=8. (0=absent, 1=li mited, 2=present) 16:26:44 History and physical on the chart dictated. 16:29:58 Skin Breakdown- none per pt 16:30:00 Disposable Defibrillator Pads Placed On Patient. 16:30:02 Patient Warmer Placed on the Table. 16:30:03 Julia Prominences Protected 16:30:06 A # 22 IV was noted in the Antecubital (left). Grade = 0. 0.9% Nacl IV at kvo. 16:30:06 A # 20 IV was noted in the Hand (right). Grade = 0. 0.9% Nacl at kvo. 16:30:11 Table restraints applied according to hospital policy 16:31:00 Anesthesia at bedside. Assumes care of patient. Ivette Mj Assessment: Initial Case, HR=83 BPM, Rhythm=SR, HXWT=317/90 mmhg, Edema=None, Color=Normal, [place] n = Warm, Dry Right Pulses: Jose Ped=1 Left Pulses: Jose Ped=1 16:38:00 Lower Right Extremities: Color=Normal Lower Left Extremities: Color=Normal Neurological: State=Alert, Ox3, [place] Respiration: Resp=20 B/min, SpO2=93 % 10 meq/hr POTASSIUM DRIP given in lab by Anesthesia, OXYGEN PLANT OPERATOR via Peripheral IV. Pump/Drip Flow = 1 25 ml/hr using 17:02:38 D5W .9 NaCl with a concentration of 40 meq in 500 ml. Ordered by Jagruti Spencer. Reason: As per physicians verbal order. 17:05:00 Anesthesiologist present for intubation. 17:08:21 Bilateral groins prepped with 2% chlorhexidine, and draped after a 3 minute waiting time. 17:13:39 Reference ECG taken 17:18:09 MD paged 17:22:30 MD arrived. Time Out. Correct patient, procedure, procedure equipment, site and side verified with physicia n present. Time 17:32:04 concurred by MD, individual staff and OXYGEN PLANT OPERATOR. Time Out #2 - Consents verified, patient in correct position, all results are labled and displa yed, safety precautions 17:32:21 taken, antibiotics administered. Time out concurred by MD, individual staff and OXYGEN PLANT OPERATOR in procedu re 17:32:56 Case Start 17:33:00 Chuy in progress. 1 g VANCOMYCIN DRIP given in lab by Anesthesia, OXYGEN PLANT OPERATOR via Peripheral IV. Ordered by Ksenia Spencer Reason: As per 17:35:06 physicians verbal order. armendariz insertion 17:35:28 Chuy done 17:36:37 20 mL 1% XYLOCAINE given in lab by Jagruti Spencer in Left Groin via Subcutaneous. 17:37:25 Vascular access was obtained in the Fem Vein (left). 17:38:03 Vascular access was obtained in the Fem Vein (left). 17:38:06 Vascular access was obtained in the Fem Vein (left). 17:38:37 Vascular access was obtained in the Fem Art (left). A SHEATH, FR4.5 PRELUDE 11CM FR 4.5 was advanced into the Fem Art (left) using the Modified Natalia edwina technique. 17:39:40 0.9ns pressure bag connected 17:40:33 A SHEATH, EPS, FR6 FAST CATH FR 6 was advanced into the Fem Vein (left) using the Modified Seldinger technique. 17:40:41 A SHEATH, EPS, FR7 FAST CATH FR 7 was advanced into the Fem Vein (left) using the Modified Seldinger technique. 17:40:44 A SHEATH, FR10 KELSI 11CM FR 10 was advanced into the Fem Vein (left) using the Modified S eldinger technique. 17:41:46 20 mL 1% XYLOCAINE given in lab by Jagruti Spencer in Right Groin via Subcutaneous. 17:41:52 Vascular access was obtained in the Fem Vein (right). 17:42:01 A SHEATH, EPS, FR8 FAST CATH FR 8 was advanced into the Fem Vein (right) using the Modified Seldinger technique. 17:42:37 CATHETER, ACUNAV FR10 ICE (ARIELA) FR 10 Was Postioned. A CATHETER, JSN, QUAD FR 5 was advanced vis Fem Vein (left) and placed in the CS. Placement was visually 17:43:56 confirmed under fluoroscopy. A CATHETER, JSN, QUAD FR 5 was advanced vis Fem Vein (left) and placed in the HIS. Placement wa s visually 17:44:03 confirmed under fluoroscopy. 17:49:48 [place] in 17:53:48 A eps was advanced to the right atrium and passed through the septal wall to the left atriu m. 17:53:54 [place] out 8000 units HEPARIN given in lab by Anesthesia, OXYGEN PLANT OPERATOR via Peripheral IV. Ordered by Jagruti Spencer . Reason: As per 17:55:29 physicians verbal order. 17:59:25 Predilating right fem vein with 12 fr sheath A SHEATH, FR12 FLEXCATH STEERABLE FR 12 was exchanged in the Fem Vein (right). This was necessa ry in order for 18:01:00 catheter support. 18:03:33 Pressure channel 1 zeroed. 18:04:00 Activated Clotting Time Drawn 18:13:29 ACT (Normal Range 90-180) = 412 A CATHETER, ACHEIVE MAPPING 20MM 20MM was advanced vis Fem Vein (right) and placed in the LA. P lacement was 18:16:18 visually confirmed under fluoroscopy. 18:17:09 A BALLOON, ARCTIC FRONT ADVANCE 28MM was inserted over wire via the LT. ATRIUM. 18:19:24 mm out. sh in 18:21:39 The LSPV was manually injected with 10 cc's of contrast. OMNIPAQUE, 300 MG, 150ML 150ML use d. 18:22:04 Cryo Ablation of the LSPV with a BALLOON, ARCTIC FRONT ADVANCE 28MM. 1st freeze 18:24:02 Cryo Ablation of the LSPV with a BALLOON, ARCTIC FRONT ADVANCE 28MM. 2nd freeze 18:30:34 The LIPV was manually injected with 10 cc's of contrast. OMNIPAQUE, 300 MG, 150ML 150ML use d. 18:31:00 Cryo Ablation of the LIPV with a BALLOON, ARCTIC FRONT ADVANCE 28MM. 1st freeze ABORTED 18:35:35 Cryo Ablation of the LIPV with a BALLOON, ARCTIC FRONT ADVANCE 28MM. 1st freeze 18:39:57 Cryo Ablation of the LIPV with a BALLOON, ARCTIC FRONT ADVANCE 28MM. 2ND freeze 18:49:44 The RIPV was manually injected with 10 cc's of contrast. OMNIPAQUE, 300 MG, 150ML 150ML use d. 18:51:07 Cryo Ablation of the RIPV with a BALLOON, ARCTIC FRONT ADVANCE 28MM. 1ST FREEZE 18:56:00 Cryo Ablation of the RIPV with a BALLOON, ARCTIC FRONT ADVANCE 28MM. 2ND FREEZE 19:00:00 The RSPV was manually injected with 10 cc's of contrast. OMNIPAQUE, 300 MG, 150ML 150ML use d. 19:00:22 Cryo Ablation of the RSPV with a BALLOON, ARCTIC FRONT ADVANCE 28MM. 1ST FREEZE 19:03:13 Cryo Ablation of the RSPV with a BALLOON, ARCTIC FRONT ADVANCE 28MM. 2ND FREEZE 19:05:19 MM IN. SH OUT. 19:10:42 ACT (Normal Range 90-180) = 416 19:12:27 Ablation complete. 20 mcg/min ISUPREL given in lab by Anesthesia, OXYGEN PLANT OPERATOR via Peripheral IV. Pump/Drip Flow = 300 ml/ hr using NaCl .9 19:16:27 with a concentration of 1 mg in 250 ml. Ordered by Jagruti Spencer. Reason: As per physicians victor manuel bal order. 19:27:01 Isuprel off 19:29:49 All Catheter(s) removed without difficulty A SHEATH SET, FR12 CHECK-PARK 13CM FR12 was exchanged in the Fem Vein (right). This was necessar y in order to 19:30:46 minimize site leakage. 40 mg PROTAMINE given in lab by Anesthesia, OXYGEN PLANT OPERATOR via Peripheral IV. Ordered by Jagruti Spencer. R shane: As per 19:31:02 physicians verbal order. 19:32:07 Sheath(s) left in place, will be removed. 19:32:52 Ablation procedure performed: AFIB. 19:33:05 EP Procedure was performed. 19:34:28 PACU called. Spoke to Marie 19:34:37 Bedside Report will be given. 19:38:55 Activated Clotting Time Drawn 19:40:19 ACT (Normal Range 90-180) = 157 Right fem vein Sheath removed; pressure applied to access site by TF for 20 in total. Sterile dressing applied at end of 19:40:49 hold time. 19:41:06 Left fem arterial Sheath removed; pressure applied to access site by DB for 25 min total. 19:52:53 Left fem vein Sheaths removed; pressure applied to access site by DB for 15 min. Assessment: Final Case, HR=85 BPM, Rhythm=sr, EIVN=208/55 mmhg, Chest Pain=0, Edema=None, [place] r=Normal, Skin = Warm, Dry Right Pulses: Jose Ped=3 Left Pulses: Jose Ped=3 20:09:14 Lower Right Extremities: Color=Normal Lower Left Extremities: Color=Normal Neurological: State=Lethargic, SEVERINO Respiration: Resp=16 B/min, SpO2=96 % 20:10:20 Case complication noted. 20:10:28 Case End 20:10:35 No case complications noted. 20:12:00 Sterile dressing applied to left fem site. Both groins wnl. 20:20:08 Patient moved to stretcher 20:21:13 Defibrillator and ground pads removed. Skin intact. End Study - Contrast Media Used In Study Contrast Total Opened (mL) Total Used (mL) Total Wasted (mL) Omnipaque 150 100 50 End Study - Maximum Contrast Load Max Contrast Load (mL) 427.0 End Study - Radiation Exposure Fluoro Time (minutes) 13.0 End Study - Patient Disposition Complications Transferred To Interventional Outcome No Telemetry Bed successful
[2017-06-25] MEDS ORDERED: DO NOT ADM ANY ANTICOAGULANT DRUGS PRN (20:30)
[2017-06-25] MEDS ORDERED: MORPHINE SULFATE 4 MG/ML INJ ONE (20:39)
[2017-06-25 23:40] VITALS: BP 127/67; PULSE 88; RESP 20; TEMP 97.1; O2SAT 92
[2017-06-26] VITALS (9 sets, daily range): BP systolic 114–126; BP diastolic 64–79; PULSE 67–92; RESP 18; TEMP 97.4–98.2; O2SAT 91–97
[2017-06-26 07:01] LABS: BICARBONATE 25.5 MEQ/L (21.0-32.0); POTASSIUM 3.7 MEQ/L (3.5-5.1)
--- NOTE | 2017-06-26 08:21 | PD.CARD ---
Atrial Fibrillation Cryo Study PROCEDURE DATE: Jun 25, 2017 PROCEDURE PERFORMED Electrophysiology study, CS cannulation, 3-D mapping, transeptal approach, right and left heart catheterization, cryoablation and RF ablation of atrial fibrillation, pulmonary vein isolation, posterior ablation, anterior ablation, repeat electrophysiology study on Isuprel infusion, intracardiac echo. Very complex case. INDICATIONS FOR PROCEDURE Ms. Renner is a 66-year-old female with atrial fibrillation, on multiple medications, on anticoagulation, referred for electrophysiology study and ablation. The risks, the nature and the benefit of the procedure are clearly stated to her. The risks include pneumothorax, cardiac perforation, stroke, need for open heart surgery and even . The patient understood and agreed to proceed. PROCEDURE As written informed consent was obtained prior to esophageal echo, the patient was kept on the table where she was prepped and draped in the usual sterile fashion. Conscious sedation was initiated and throughout the procedure by the anesthesiologist. Once sedation was verified, the right and left inguinal area was anesthetized with 2% Xylocaine. Using modified Seldinger technique, the left femoral vein was cannulated on three occasions and three guidewires were advanced over the wire, one 6, one 7, and one 10-Z[place]ian Hemaquet were advanced. Then the left femoral artery was done on one occasion, one guidewire was advanced over the wire. A 4-Zambian Hemaquet was advanced. Then the right femoral vein was cannulated on one occasion and one guidewire was advanced over the wire. An 8-[place]ian Hemaquet was advanced. Then under fluoroscopic guidance through the 6 and 7-Zambian Hemaquet, two 5- [place] Terrell curved quadripolar electrophysiology catheters were advanced and positioned on the His as well as coronary sinus. The patient was in sinus rhythm. Basic interval was measured. They were all within normal limits. Then through the 10-Zambian Hemaquet, a Cordis-Estrada AcuNav intracardiac echo catheter was advanced and placed at the right atrium. Multiple views were obtained. There was no pericardial effusion. Pulmonary vein was seen. The atrial septum was visualized. Then the 8-Z[place]ian Hemaquet in the right femoral vein was exchanged for an Agilis transseptal sheath that was placed all the way to the superior vena cava. Through this sheath a [place] needle was advanced. Then the sheath, the dilator and the needle were pulled back progressively until foci engaged. Once the needle was advanced, RF was delivered for 2 seconds. I was able to cross into the left atrium. Once the needle was crossed, the dilator was advanced. Once the dilator was crossed, the sheath was advanced. Once the sheath crossed , the dilator and needle were removed. An intracardiac echo showed the sheath in good position. The patient already received 10,000 units of heparin. The goal is to get an ACT around 360 during the ablation. Through this sheath a [employer] Chuck 20-pole circumferential catheter was advanced. Using [employer] endocardial solution mapping system a three-dimensional configuration of the left atrium was obtained. Points were taken at the left superior and inferior vein, right superior and inferior vein, mitral valve, and appendage. Then at this point I decided to proceed with cryoablation. The circumferential catheter was removed. Through the sheath a 0.035 wire was advanced. I did exchange the Agilis sheath for a [employer] flex sheath. I decided to use a 28mm balloon. The balloon was advanced over the wire. First I did engage the left superior vein. The balloon was inflated, complete occlusion obtained. CryoEnergy was delivered for 3 and 3 minutes. Temperature reached -52. Then I did engage the left inferior vein, occlusion obtained. Venography showed complete occlusion and CryoEnergy was delivered for 3 and 3 minutes. Temperature was around -48 to -50. Then the right inferior was engaged, complete occlusion obtained. Temperature reach -48 for 3 and 3 minutes. Then the right superior was engaged. Before CryoEnergy of the right veins, the His catheter was placed at the left and the right subclavian. Phrenic nerve pacing was performed. There was diaphragmatic stimulation. That is going to be used for phrenic nerve monitoring during cryoablation. I did cryoablate the right superior vein. There was no loss of phrenic nerve movement , diaphragmatic movement. Phrenic nerve was intact. The temperature dropped to -50 for 3 and 3 minutes. At that point I removed the balloon. The circumferential catheter was advanced into the veins. At this point I realized there is still signal in the left superior and right superior vein. These veins are big. There is still signal on each side and the border of the right superior vein. After multiple the pacing and evaluation, I decided to proceed with RF ablation of the vein. Esophageal was placed before ablation for comparative monitoring during the cryo and the RF ablation. Through the sheath, I advanced a [employer]. Chuck TactiCath 65cm, 3.5mm irrigated tip mapping radiofrequency ablation catheter, the radiofrequency mapping and radiofrequency ablation catheter from [employer] Chuck. First I did isolate the left superior. Part of the posterior ablated. I did ablate the gilda within reach. Then I did proceed with isolation of the right superior and I did ablate the anterior and posterior parts of the right superior. Then the circumferential catheter was advanced into the veins. Pacing from the vein showed no conduction to the atrium. Pacing from the atrium showed no conduction to the veins. The patient at this point received Isuprel infusion for around 10 minutes at 20mcg. No tachyarrhythmia was induced, no conduction resumed. Post-Isuprel no conduction resumed either. At that point the procedure was complete. All catheters were removed, the transeptal sheath was exchanged for a 12-Zambian Hemaquet. Intracardiac echo showed pericardial effusion, still good flow in the pulmonary vein. No incident reported. The patient tolerated the procedure. Blood loss minimal. 1. Electrocardiogram: At baseline the patient was in sinus. Postprocedure the patient in sinus. 2. Basic Interval: Base cycle length was around 960 milliseconds. 3. Tachyarrhythmia: Atrial fibrillation was mapped and ablated. Ablation was successful. CONCLUSION Successful electrophysiology study, mapping and radiofrequency ablation of atrial fibrillation, pulmonary vein isolation, posterior and anterior wall ablation, repeat electrophysiology study on Isuprel infusion. COMMENT AND RECOMMENDATIONS The patient is going to be transferred to the telemetry unit, will be observed, and when stable can be discharged home. Jagruti Spencer MD Jun 26, 2017 08:21
--- NOTE | 2017-06-26 08:30 | HHI.PR ---
Subjective Remarks Feeling better Objective Vital Signs Date Time Temp Pulse Resp B/P (MAP) Pulse Ox O2 Delivery O2 Flow Rate FiO2 06/26/17 07:30 97.7 88 18 125/79 (94) 97 06/26/17 06:00 67 06/26/17 05:00 88 06/26/17 04:00 98.2 91 18 114/76 (89) 92 06/26/17 04:00 87 06/26/17 04:00 Room Air 06/26/17 03:00 88 06/26/17 02:00 90 06/26/17 01:00 92 06/26/17 00:01 20 06/26/17 00:00 85 06/26/17 00:00 85 06/25/17 23:40 97.1 88 20 127/67 (87) 92 06/25/17 23:40 Nasal Cannula 2.00 06/25/17 23:00 86 22 113/61 (78) 95 Nasal Cannula 4 06/25/17 22:00 77 20 117/62 (80) 94 Nasal Cannula 4 06/25/17 21:45 78 16 124/66 (85) 95 Nasal Cannula 4 06/25/17 21:30 74 16 121/64 (83) 96 Nasal Cannula 4 06/25/17 21:15 75 18 118/64 (82) 95 Nasal Cannula 4 06/25/17 21:00 74 20 106/58 (74) 95 Nasal Cannula 4 06/25/17 20:45 77 18 105/56 (72) 97 Nasal Cannula 4 06/25/17 20:25 97.5 87 20 115/61 (79) 99 4 06/25/17 14:49 98.0 76 18 149/92 (111) 94 I/O 06/25/17 06/25/17 06/25/17 06/26/17 06/26/17 06/26/17 07:00 15:00 23:00 07:00 15:00 23:00 Intake Total 900 ml 720 ml Output Total 160 ml 400 ml Balance 740 ml 320 ml Intake Oral 720 ml Other 900 ml Output Urine Total 400 ml Estimated Blood Loss 10 ml Other 150 ml # Bowel Movements 0 Result Diagram: 06/25/17 1325 06/26/17 0543 Imaging Alert, fully oriented Lungs: ventilated Heart: S1, S2 regular, no gallop Abdomen: soft, no mass Ext: no edema Current Medications Medications (Trade) Dose Ordered Sig/Christal Route Start Time Stop Time Status Last Admin Lactated Ringer's 1,000 ml @ 30 mls/hr Q24H PRN IV 06/25/17 14:00 06/28/17 13:59 Sodium Chloride 500 ml @ 30 mls/hr [id number] PRN IV 06/25/17 14:00 06/28/17 13:59 (Lopressor) 25 mg EVENTS INTERN PRN PO 06/25/17 14:00 06/28/17 13:59 (Betadine 5% Antisepsis Kit) 1 applic EVENTS INTERN PRN EACH NARE 06/25/17 14:00 06/28/17 13:59 (Chlorhexidine 2% Cloth) 3 pack EVENTS INTERN PRN TOPICAL 06/25/17 14:00 06/28/17 13:59 Sodium Chloride 500 ml @ 30 mls/hr [id number] IV 06/25/17 14:00 (Ativan) 1 mg EVENTS INTERN SL 06/25/17 14:00 06/28/17 13:59 Miscellaneous Information ALL NURSING DEPARTME... UNSCH PRN .XX 06/25/17 20:30 06/26/17 20:29 Assessment and Plan Problem List: (1) Atrial fibrillation ICD Codes: I48.91 - Unspecified atrial fibrillation Plan: SP ablation Doing well Feeling better can be DH Follow up as previously scheduled (2) HTN (hypertension) ICD Codes: I10 - Essential (primary) hypertension Status: Chronic Plan: SBP 125 Jagruti Spencer MD Jun 26, 2017 08:30
--- NOTE | 2017-06-26 14:00 | EKG ---
Date Performed: 06/25/2017 Time Performed: 13:50:12 PTAGE: 66 years EKG: Sinus rhythm . Left axis deviation Borderline ECG Compared to prior tracing no significant change PREVIOUS TRACING : 03/06/2017 13.41 DOCTOR: Alberta Jarquin Interpretating Date/Time 06/26/2017 13:59:27
--- NOTE | 2017-06-26 14:00 | EKG ---
Date Performed: 06/25/2017 Time Performed: 20:39:44 PTAGE: 66 years EKG: Sinus rhythm MARKED LEFT AXIS DEVIATION PATTERN CONSISTENT WITH PULMONARY DISEASE NONSPECIFIC T-WAVE ABNORMALITY ABNORMAL ECG Compared to prior tracing no significant change PREVIOUS TRACING : 06/25/2017 13.50 DOCTOR: Alberta Jarquin Interpretating Date/Time 06/26/2017 13:59:41
== END 2017-06-26 09:18 | disposition home or self-care (01) ==
LOC: HCAT 12:47 → HDIC 12:48 → HCIS 23:30 → HCAT 06-26 09:18
PROVIDERS: ATTEND Internal Medicine Interventional Cardiology
DX: I48.91 Unspecified atrial fibrillation (principal); I25.10 Atherosclerotic heart disease of native coronary artery without angina pectoris; I11.9 Hypertensive heart disease without heart failure; I42.0 Dilated cardiomyopathy; Z79.01 Long term (current) use of anticoagulants
CPT/HCPCS: 00537; 80048; 80053; 82948; 85002; 85025; 85610; 86850; 86900; 86901; 93005; 93312; 93320; 93325; 93613; 93623; 93656; 93662; C1730; C1731; C1732; C1733; J1644; J1940; J2270; J2720; J3370; J3480; J7040; J7050

== ENCOUNTER 2018-01-26 05:39 | Inpatient (IN) ==
--- NOTE | 2018-01-20 17:48 | MH ---
cc: Jolene Bynum MD, J Richard R MD DATE OF ADMISSION: 01/26/2018 REASON FOR ADMISSION: Osteoarthritic degeneration right shoulder now for reverse right total shoulder arthroplasty. HISTORY OF PRESENT ILLNESS: A pleasant 67-year-old female is being admitted today for a right total shoulder arthroplasty due to severe painful osteoarthritic degeneration and rotator cuff incompetence. PAST MEDICAL HISTORY: The patient has a history of anxiety, asthma, sarcoidosis, hypertension, back pain, depression, hypothyroidism. History of atrial fibrillation also. CURRENT MEDICATIONS: 1. Cartia 2. Valsartan 3. Coumadin which she is currently off for the surgery. 4. Gabapentin. 5. Levothyroxine. PAST SURGICAL HISTORY: Includes a carpal tunnel release. REVIEW OF SYSTEMS: Noncontributory. FAMILY HISTORY: Noncontributory. SOCIAL HISTORY: She does not smoke. She drinks occasionally . ALLERGIES: No allergies. PHYSICAL EXAMINATION: GENERAL: We find a 67-year-old female, well-developed, well-nourished, and oriented x3 complaining of pain in right shoulder. VITAL SIGNS: Blood pressure 118/80, pulse 90 and regular, respirations 18, temperature 98.1, pulse oximetry 95% on room air. HEENT: Ears PERRL. EOMI. Ears, nose, mouth clear. LUNGS: Clear. HEART: Regular rate. ABDOMEN: Soft, positive bowel sounds, nontender. EXTREMITIES: Reveal her right shoulder to be tender with crepitance on range of motion. NEUROLOGIC: Neurovascularly intact to her fingers. IMPRESSION: Severe painful arthritic degeneration, right shoulder, with rotator cuff incompetence. PLAN: Admission for a reverse right total shoulder arthroplasty today. The patient plans on going to rehab after surgical stay in the hospital and Is given a prescription for postoperative pain in the office. MD UMESH Gibson/ , 05:29 PM , 05:47 PM
[2018-01-26] MEDS ORDERED: Bupivacaine PF 0.5% Inj 30 ML Vial ONE (07:19)
== END 2018-01-26 08:15 | disposition home or self-care (01) ==
LOC: HSDI 05:39
PROVIDERS: ADMIT Surgery; ATTEND Surgery
DX: E11.22 Type 2 diabetes mellitus with diabetic chronic kidney disease; N39.0 Urinary tract infection, site not specified; F41.9 Anxiety disorder, unspecified; Z53.09 Procedure and treatment not carried out because of other contraindication; Z79.4 Long term (current) use of insulin; M19.011 Primary osteoarthritis, right shoulder; N18.9 Chronic kidney disease, unspecified; F32.9 Major depressive disorder, single episode, unspecified; E03.9 Hypothyroidism, unspecified; J45.909 Unspecified asthma, uncomplicated; Z79.01 Long term (current) use of anticoagulants; M79.7 Fibromyalgia; I48.91 Unspecified atrial fibrillation; I12.9 Hypertensive chronic kidney disease with stage 1 through stage 4 chronic kidney disease, or unspecified chronic kidney disease; D86.9 Sarcoidosis, unspecified

== ENCOUNTER 2018-02-27 08:08 | Inpatient (IN) ==
--- NOTE | 2018-02-20 12:14 | MH ---
cc: Jolene Bynum MD DATE OF ADMISSION: 02/27/2018 DATE OF SURGERY: 02/27/2018 ADMITTING DIAGNOSIS: Osteoarthritic degeneration of the right shoulder, now for a reverse right shoulder arthroplasty. HISTORY OF PRESENT ILLNESS: This pleasant 67-year-old female is being admitted today for reverse shoulder arthroplasty due to severe painful osteoarthritic degeneration of her right shoulder. PAST MEDICAL HISTORY: She has a history of hepatitis B, anxiety, asthma, hypertension, back pain, depression, and hypothyroidism. CURRENT MEDICATIONS: Include Cartia, valsartan, Coumadin, gabapentin, and levothyroxine. Has been off the Coumadin several days before surgery. PAST SURGICAL HISTORY: Carpal tunnel release. REVIEW OF SYSTEMS: Noncontributory. FAMILY HISTORY: Noncontributory. SOCIAL HISTORY: She does not smoke. Drinks alcohol occasionally. ALLERGIES: NO KNOWN ALLERGIES. PHYSICAL EXAMINATION: GENERAL: We find a 67-year-old female, well-developed, well-nourished, alert and oriented x3, complaining of pain in the right shoulder. VITAL SIGNS: Blood pressure 118/80, pulse 90 and regular, respirations 18, temperature 98.1, pulse oximetry 95% on room air. EYES: PERRL, EOMI. Ears, nose, and mouth clear. NECK: Supple. LUNGS: Clear. HEART: Regular rate. ABDOMEN: Soft, positive bowel sounds, nontender. EXTREMITIES: Reveal right shoulder to have limitation of motion. Neurovascularly intact to fingers. IMPRESSION: Severe painful osteoarthritic degeneration, right shoulder. PLAN: Admission for reverse right shoulder arthroplasty today. Patient given prescription for postoperative pain control in the office. Plans on going to rehabilitation center after surgical stay in the hospital. JZackary Bynum MD JRR/kb , 11:56 AM , 12:03 PM [email or web address]
[2018-02-27] MEDS ORDERED: Bupivacaine PF 0.5% Inj 30 ML Vial ONE (08:44)
[2018-02-27] MEDS ORDERED: Bupivacaine Liposomal PF 1.3% Inj 20 ML Vial ONE (08:44)
[2018-02-27] MEDS ORDERED: Famotidine PF Inj 20 MG/2 ML Vial ONE (09:04)
[2018-02-27] MEDS ORDERED: fentaNYL Citrate Inj 100 MCG/2 ML Ampul ONE (09:04)
[2018-02-27] MEDS ORDERED: Tranexamic Acid Inj 1,000 MG in Sodium Chlor 0.9% Inj 100 ML IV.SIG ONE (09:20)
[2018-02-27] MEDS ORDERED: Bisacodyl 10 MG Supp RECTAL PRN (09:20)
[2018-02-27] MEDS ORDERED: Morphine Inj 4 MG/ML Vial IV.PUSH PRN (09:20)
[2018-02-27] MEDS ORDERED: Post-op Orders (for Pharmacy) OTHER STA (09:20)
[2018-02-27] MEDS ORDERED: Thrombin Topical 20,000 UNIT Spray Kit TOPICAL ONE (09:21)
[2018-02-27] MEDS ORDERED: Chlorhexidine Gluconate 2% 1 Pack (2 Cloths) TOPICAL SCH (09:30)
[2018-02-27] MEDS ORDERED: Chlorhexidine 4% Topical 120 APPLIC/120 ML Bottle TOPICAL SCH (09:30)
[2018-02-27] MEDS ORDERED: Metoprolol Tartrate 25 MG Tablet PO SCH (09:30)
[2018-02-27] MEDS ORDERED: Ketamine Inj 50 MG/5 ML Syringe IV.PUSH ONE (09:31)
[2018-02-27] MEDS ORDERED: SODIUM CHLOR 0.9% IV.SIG SCH ×2 (10:00→14:00)
[2018-02-27] MEDS ORDERED: TRANEXAMIC ACID IV.SIG SCH ×2 (10:00→14:00)
[2018-02-27] MEDS ORDERED: Sodium Chlor 0.9% Inj 500 ML IV.SIG SCH (10:00)
[2018-02-27] MEDS ORDERED: Clindamycin Inj 900 MG/6 ML Vial ONE (10:08)
[2018-02-27] MEDS ORDERED: Neostigmine Inj 5 MG/5 ML Syringe IV.PUSH ONE (12:00)
[2018-02-27] MEDS ORDERED: Phenylephrine/NS 1000 MCG/10ML Syringe IV.PUSH ONE (12:00)
[2018-02-27] MEDS ORDERED: Lidocaine PF 1% Inj 5 ML Syringe INFILTRATN ONE (12:00)
[2018-02-27] MEDS ORDERED: Glycopyrrolate Inj 1 MG/5 ML Syringe IV.PUSH ONE (12:00)
[2018-02-27] MEDS ORDERED: *morphine SULFATE 4 MG/ML PERIprocedure ONLY ONE ×2 (13:35→14:00)
--- NOTE | 2018-02-27 14:11 | MP ---
cc: Jolene Bynum MD DATE OF OPERATION: 02/27/2018 PREOPERATIVE DIAGNOSIS: Osteoarthritic degeneration, right shoulder with rotator cuff incompetence. POSTOPERATIVE DIAGNOSIS: Osteoarthritic degeneration, right shoulder with rotator cuff incompetence. SURGERY PERFORMED: Reverse right total shoulder arthroplasty. SURGEON: Jolene Bynum MD VENDING ATTENDANT: SHALA Temple ANESTHESIA: General intubation and block. PROCEDURE IN DETAIL: The patient was brought to the operating room, placed on the operating table in supine position. After successful induction of anesthesia, the patient was placed in beach chair position. Right shoulder and arm were prepped and draped in the usual manner. An anterior incision was then made, extending above the coracoid, across the interval over the coracoid and humerus, carried down through the medial side of the humerus for a total of 10 inches in length, carried down through subcutaneous tissue and through the deltoid, freeing it from the cephalic vein, staying lateral to it. Reflecting the tissue out of the way to expose the capsule over the shoulder joint, which was removed. The rotator cuff was found to be completely torn. The remains of the subscapularis tagged and retracted medially, and kept out of the way. The remainder of the biceps tendon was ligated into the tissue below the humeral neck, and the rest of the biceps tendon removed from the bicipital groove and removed from the superior glenoid. Next, osteophytes removed from the humeral head and using the cutting guide, the cut was made through the humeral head for later placement of the stem. Next, the head was retracted out of the way, and the glenoid debrided of all nonviable tissue, protecting axillary nerve and musculocutaneous nerve. The glenoid was prepared by putting a first drill through the center of it, followed by inserting the tap and reaming, and then it was irrigated copiously with antibiotic solution water pick, and meticulous hemostasis achieved at this point. Then, four 5.0 locking screws inserted through a RSP baseplate, size 14, 22 and 30 screws. Next, the 32 size head was impacted into place. Next, the humeral canal was prepared by finding the canal, and over-reaming to a size 10 for insertion of an AltiVate size 10 small stem after broaching and inserting bone graft around the area. Then, the remainder of the humerus was reamed for insertion of a size 32 +4 small poly. After trials were found to track smoothly, the actual poly was impacted into place. The shoulder was reduced and full range of motion of the shoulder was appreciated with no instability. The wound was irrigated copiously with antibiotic solution and the remains of the subscapularis were reinserted into the humerus through the deep fascia and some bone using a #2 FiberWire. Then, the deltoid approximated with a running #0 Vicryl, subcutaneous tissue approximated using interrupted 2-0 and 3-0 Monocryl suture, and Prineo dressing applied. Full range of motion of the shoulder than appreciated with no instability. The sponge and suture counts were correct. The patient tolerated the procedure well. No drain utilized. Left the operating room in a sling and swathe in good condition. SHALA Temple, was present during the entire procedure to include patient positioning in the procedure. The medical necessity of nurse practitioner/certified ophthalmic assistant was indicated in this case, due to the surgical complexity of the case itself. During the surgical case, the ophthalmic tech was working at the back table, while my shampoo assistant/TRANSFORMER SHOP SUPERVISOR was directly assisting me. JMD UMESH Arnett/chidi , 01:38 PM , 01:49 PM
--- NOTE | 2018-02-27 14:20 | XR ---
EXAM DATE: 02/27/2018 1:59 PM EDT AGE/SEX: 67 years / Female INDICATIONS: Post op. CLINICAL DATA: This is the patient's initial encounter. Patient reports that signs and symptoms have been present for 1 day and indicates a pain score of 2/10. MEDICAL/SURGICAL HISTORY: . Hypertension. Renal insufficiency. . Appendectomy. Tubal ligation. Cholecystectomy. COMPARISON: [facility] [place], SHOULDER RIGHT COMPLETE (>2VWS), 12/11/2016. . FINDINGS: Single AP view reveals postoperative right shoulder joint replacement. No complications identified. N ormal alignment. CONCLUSION: Postoperative right shoulder joint replacement. Electronically signed by: Carter Finley MD 02/27/2018 2:19 PM EDT
--- NOTE | 2018-02-27 15:43 | P.CONIM ---
History of Present Illness Service: Medicine Consult date: 02/27/18 Requesting Physician: Tra Bynum Reason for Consult: medical management Primary Care Provider: No Primary Care Physician Family Provider: No Primary Care Physician Chief Complaint: medical management History of Present Illness: This is a 67-year-old female with past medical history of persistent atrial fibrillation, type 2 diabetes, history of CVA, hypertension, fibromyalgia, severe osteoarthritis of the right shoulder who presented for reverse right total shoulder arthroplasty. Medicine hospitalist consulted for medical management. Patient seen after surgery was performed. She had no complaints. She did explain to me that she had 2 prior CVA. Patient stated that at the moment she does not feel pain. Review of Systems Constitutional: Denies anorexia, Denies body ache(s), Denies chills, Denies daytime sleepiness, Denies excessive sweating, Denies fatigue, Denies fever(s), Denies headache(s), Denies increased appetite, Denies lack of energy, Denies malaise, Denies night sweats, Denies weakness, Denies weight gain, Denies weight loss, Denies other Eyes: Denies blind spots, Denies blurry vision, Denies bulging eyes, Denies change in vision, Denies double vision, Denies discharge, Denies dry eyes, Denies floaters, Denies irritation, Denies itchy eyes, Denies loss of vision, Denies pain, Denies requires corrective lenses, Denies sensitivity to light, Denies other Ears, Nose, Mouth, and Throat: Denies abnormal hearing, Denies bleeding gums, Denies bad breath, Denies change in voice, Denies dental pain, Denies difficulty swallowing, Denies dizziness, Denies dry mouth, Denies ear discharge , Denies ear pain, Denies facial pain, Denies headache(s), Denies hearing loss, Denies hoarseness, Denies lip swelling, Denies nosebleed, Denies mouth lesions, Denies mouth pain, Denies nasal congestion, Denies nasal discharge, Denies nasal obstruction, Denies nasal trauma, Denies neck lump, Denies neck pain, Denies nose pain, Denies pain with swallowing, Denies poor balance, Denies post nasal drip, Denies ringing in the ears, Denies sinus pain, Denies sinus pressure , Denies sore throat, Denies throat swelling, Denies tongue swelling, Denies other Cardiovascular: Denies chest pain, Denies chest pain at rest, Denies chest pain with activity, Denies excessive sweating, Denies fainting, Denies fast heart rate, Denies foot swelling, Denies generalized swelling, Denies irregular heart rhythm, Denies leg pain with activity, Denies leg sores, Denies leg swelling, Denies lightheadedness, Denies radiating jaw, neck or arm pain, Denies rapid, pounding, or irregular heartbeat, Denies shortness of breath, Denies shortness of breath with activity, Denies shortness of breath when lying down, Denies shortness of breath causing sudden awakening, Denies slow heart rate, Denies other Respiratory: Denies change in phlegm color, Denies chest congestion, Denies cough, Denies coughing up blood, Denies excessive phlegm production, Denies pain on inspiration, Denies pain with cough, Denies shortness of breath, Denies shortness of breath with activity, Denies snoring, Denies stridor, Denies wheezing, Denies other Gastrointestinal: Denies abdominal pain, Denies belching, Denies black, tarry stools, Denies bloating, Denies bright, red blood in stools, Denies change in bowel habits, Denies constant urge to pass stool, Denies change in stools, Denies coffee ground vomit, Denies constipation, Denies cramping, Denies difficulty swallowing, Denies excessive passing of gas, Denies feeling full early, Denies heartburn, Denies incontinent of stools, Denies loose stools, Denies nausea, Denies pain with swallowing, Denies vomiting, Denies vomiting blood, Denies other Genitourinary: Denies abnormal periods, Denies abnormal vaginal bleeding, Denies absent period, Denies bleeding between periods, Denies blood in urine, Denies difficulty starting urination, Denies difficulty urinating, Denies dribbling after urination, Denies frequent nighttime urination, Denies genital itching, Denies genital lesions, Denies heavy periods, Denies hot flashes, Denies light periods, Denies nipple discharge, Denies painful intercourse, Denies painful periods, Denies painful urination, Denies pelvic pain, Denies prolapse symptoms, Denies sexual problems, Denies side pain, Denies urinary incontinence, Denies urinary urgency, Denies vaginal discharge, Denies vaginal dryness, Denies vaginal odor, Denies vaginal itching, Denies other Musculoskeletal: Denies abnormal walking, Denies back pain, Denies body aches, Denies decreased muscle mass, Denies deformity, Denies joint pain, Denies joint swelling, Denies limited joint movement, Denies loss of height, Denies muscle cramps, Denies muscle weakness, Denies neck pain, Denies numbness, Denies radiating pain into limb, Denies stiffness, Denies tingling, Denies other Skin/Breast: Denies acne, Denies bleeding lesions, Denies boil, Denies breast swelling, Denies breast skin changes, Denies breast pain, Denies breast lump, Denies change in breast shape, Denies change in hair, Denies change in skin color, Denies changing lesions, Denies dry skin, Denies excessive hair growth, Denies hair loss, Denies itching, Denies lesions, Denies nail changes, Denies new lesions, Denies nipple discharge, Denies non-healing lesions, Denies redness , Denies sensitivity to light, Denies rash, Denies skin pain, Denies skin ulcer , Denies sores, Denies stretch alvarez, Denies unusual bruising, Denies wounds, Denies yellowing of the skin, Denies other Neurologic: Denies abnormal hearing, Denies abnormal movements, Denies abnormal speech, Denies abnormal walking, Denies behavioral changes, Denies burning sensations, Denies confusion, Denies dizziness, Denies fainting, Denies frequent falls, Denies headache(s), Denies lack of coordination, Denies localized weakness, Denies loss of vision, Denies memory loss, Denies numbness, Denies other visual disturbances, Denies radiating pain, Denies restless legs, Denies convulsions, Denies seizure-like activity, Denies sensory deficit, Denies tingling, Denies tingling/numbness/burning sensations, Denies tremor(s), Denies unsteadiness, Denies weakness, Denies other Psychiatric: Denies abnormal sleep pattern, Denies anxiety, Denies behavioral changes, Denies change in appetite, Denies change in sex drive, Denies confusion , Denies depression, Denies difficulty concentrating, Denies hearing things others do not hear, Denies hopelessness, Denies irritability, Denies lack of enjoyment, Denies memory loss, Denies mood swings, Denies panic attacks, Denies paranoia, Denies seeing things others do not see, Denies sensing things others do not sense, Denies tactile hallucinations, Denies thoughts of hurting/killing others, Denies thoughts of hurting/killing yourself, Denies other Endocrine: Denies cold intolerance, Denies excessive sweating, Denies flushing, Denies heat intolerance, Denies increased hunger, Denies increased thirst, Denies increased urination, Denies rapid, pounding, or irregular heartbeat, Denies other Hematologic/Lymphatic: Denies easy bleeding, Denies easy bruising, Denies enlarged lymph nodes, Denies other Allergic/Immunologic: Denies GI upset with certain foods, Denies hives, Denies itchy eyes, Denies lip swelling, Denies seasonal runny nose, Denies throat swelling, Denies tongue swelling, Denies wheezing, Denies other PMFSH - History History Provided By: Patient - Medical History Medical History: Medical History (Last Updated 02/23/18 @ 11:52 by Sondra Navarrete RN) Afib Asthma Chronic kidney disease (CKD) Diabetes Fibromyalgia H/O hiatal hernia History of ovarian cyst Hypertension Hypothyroidism Lung nodule Recent urinary tract infection - Surgical History Surgical History: Surgical History (Last Updated 02/27/18 @ 09:02 by Chante Emmanuel) H/O carpal tunnel repair H/O decompression of ulnar nerve H/O lymph node biopsy H/O tubal ligation History of arthroplasty of left ankle History of arthroscopy of right shoulder History of cholecystectomy History of loop recorder History of lung biopsy History of repair of hiatal hernia Hx of appendectomy S/P removal of right ovary S/P thyroid biopsy S/P trigger finger release - Tobacco History Second Hand Smoke Exposure: No Smoking Status: Never smoker - Alcohol History How Often Do You Have a Drink Containing Alcohol: Monthly or less - Substance Use History Substance History: No History of Abuse - Travel History Recent Travel in the [facility] Within the Last 8 Weeks: No Recent Travel Out of the Country Within the Last 8 Weeks: No Medications and Allergies Active Medications: Active Medications Hydrocodone Bitart/Acetaminophen ([place] 7.5/325) 1 tab PO Q4H PRN PRN Reason: PAIN LESS THAN 5 ON SCALE Hydrocodone Bitart/Acetaminophen ([place] 7.5/325) 2 tab PO Q6H PRN PRN Reason: PAIN SCALE 5 TO 10 Al Hydroxide/Mg Hydroxide (Milk Of Magnesia Liq) 30 ml PO BID PRN PRN Reason: Mild Constipation Bisacodyl (Dulcolax Supp) 10 mg RECTAL DAILY PRN PRN Reason: SEVERE CONSITIPATION Chlorhexidine Gluconate (Chlorhexidine 2% Cloth) 3 pack TOPICAL GERIATRIC NURSE ASSISTANT [facility] Stop: 03/02/18 09:26 Chlorhexidine Gluconate (Hibiclens 4% Topical) 1 applicatio TOPICAL ONCE [facility] Stop: 03/03/18 09:29 Diltiazem HCl (Cardizem Cd 24hr) 180 mg PO BID [facility] Furosemide (Lasix) 40 mg PO DAILY [facility] Gabapentin (Neurontin) 400 mg PO HS [facility] Clindamycin/Sodium Chloride (Cleocin 900 Mg/Ns Premix) 900 mg in 50 mls @ 100 mls/hr IV.SIG Q8H [facility] Stop: 02/28/18 11:29 Lactated Ringer's (Lr 1000 Ml Inj) 1,000 mls @ 80 mls/hr IV.CONT .[id number] [facility] Last Admin: 02/27/18 14:00 Dose: 80 mls/hr Lactated Ringer's (Lr 1000 Ml Inj) 1,000 mls @ 30 mls/hr IV.SIG .Q24H [facility] Stop: 03/02/18 09:26 Last Infusion: 02/27/18 11:44 Dose: Infused Sodium Chloride (Ns Inj) 500 mls @ 30 mls/hr IV.SIG .Q10H [facility] Stop: 03/02/18 09:26 Tranexamic Acid 875 mg/ Sodium (Chloride) 108.75 mls @ 200 mls/hr IV.SIG ONCE [facility] Stop: 02/27/18 16:00 Last Infusion: 02/27/18 11:12 Dose: Infused Tranexamic Acid 875 mg/ Sodium (Chloride) 108.75 mls @ 200 mls/hr IV.SIG ONCE [facility] Stop: 02/27/18 20:00 Last Infusion: 02/27/18 14:30 Dose: Infused Insulin Detemir (Levemir Inj) 12 unit SQ BID [facility] Lactulose (Lactulose Liq) 30 ml PO DAILY PRN PRN Reason: SEVERE CONSITIPATION Magnesium Chloride (Mag64) 64 mg PO DAILY [facility] Melatonin (Melatonin) 10 mg PO HS PRN PRN Reason: INSOMNIA Metoprolol Tartrate (Lopressor) 25 mg PO GERIATRIC NURSE ASSISTANT [facility] Stop: 03/02/18 09:26 Miscellaneous Information ([facility] Nursing Information) 1 each OTHER UNSCH PRN PRN Reason: SEE LABEL COMMENTS Stop: 02/28/18 13:20 Morphine Sulfate (Morphine Inj) 2 mg IV.PUSH Q3H PRN PRN Reason: BREAKTHROUGH PAIN Multivitamins/Minerals (Theragran-M) 1 tab PO DAILY [facility] Ondansetron HCl (Zofran Odt) 4 mg PO Q6H PRN PRN Reason: NAUSEA OR VOMITING Povidone Iodine (Betadine 5% Antisepsis Kit) 1 applicatio EACH NARE GERIATRIC NURSE ASSISTANT [facility] Stop: 03/02/18 09:26 Senna/Docusate Sodium (Cehn-Colace) 1 tab PO BID [facility] Sennosides (Senokot) 17.2 mg PO BID PRN PRN Reason: Moderate Constipation Sodium Chloride (Ns Flush) 2 ml IV.FLUSH UNSCH PRN PRN Reason: FLUSH AFTER USING IV ACCESS Sodium Chloride (Ns Flush) 2 ml IV.FLUSH BID [facility] Vitamin B Complex/Vitamin C (Allbee C) 1 tab PO DAILY [facility] Vitamin D (Vitamin D3) 1,000 unit PO DAILY [facility] Warfarin Sodium (Coumadin) 5 mg PO MoFr [facility] Warfarin Sodium (Coumadin) 7.5 mg PO 5XW [facility] Allergies Allergy/AdvReac Type Severity Reaction Status Date / Time azithromycin Allergy Severe Shortness Verified 02/27/18 09:00 of Breath cephalexin Allergy Severe Itching Verified 02/27/18 09:00 diphenhydramine Allergy Severe Rash Verified 02/27/18 09:00 doxycycline Allergy Severe Shortness Verified 02/27/18 09:00 of Breath ibuprofen Allergy Severe Rash Verified 02/27/18 09:00 minocycline Allergy Severe Shortness Verified 02/27/18 09:00 of Breath penicillin G Allergy Severe Shortness Verified 02/27/18 09:00 of Breath Sulfa (Sulfonamide Allergy Severe Rash Verified 02/27/18 09:00 Antibiotics) tigecycline Allergy Severe Shortness Verified 02/27/18 09:00 of Breath vilanterol Allergy Severe Dizziness Verified 02/27/18 09:00 bromide salts Allergy Shortness Verified 02/27/18 09:00 of Breath tiotropium Allergy Dizziness Verified 02/27/18 09:00 fluticasone AdvReac Severe Dizziness Verified 02/27/18 09:00 fluticasone furoate AdvReac Severe Dizziness Verified 02/27/18 09:00 salmeterol AdvReac Severe Dizziness Verified 02/27/18 09:00 ciprofloxacin AdvReac Intermediate Nausea/Vomi Verified 02/27/18 09:00 ting Home Medications Medication Instructions Recorded Confirmed Type Acetaminophen Extra Strength 500 mg PO Q6H PRN 01/19/18 02/27/18 History cholecalciferol (vitamin D3) 1,000 units PO DAILY 01/19/18 02/27/18 History [Vitamin D3] diltiazem HCl [Cardizem CD] 180 mg PO BID 01/19/18 02/27/18 History furosemide 40 mg PO DAILY 01/19/18 02/27/18 History gabapentin 400 mg PO HS 01/19/18 02/27/18 History [id number]-st 1 tab PO DAILY 01/19/18 02/27/18 History [Glucosamine Chondroitin PLUS] insulin detemir U-100 [Levemir 12 unit SUB-Q BID 01/19/18 02/27/18 History U-100 Insulin] magnesium 100 mg PO DAILY 01/19/18 02/27/18 History melatonin 10 mg PO HS PRN 01/19/18 02/27/18 History multivitamin with iron [One Daily 1 tab PO DAILY 01/19/18 02/27/18 History Multi-Vit w-Mineral] vitamin B complex [B-Complex] 1 tab PO DAILY 01/19/18 02/27/18 History warfarin 5 mg PO 2XWEEK 01/19/18 02/27/18 History warfarin 7.5 mg PO 5XW 01/19/18 02/27/18 History chromium-brindal peck [Garcinia 1 tab PO BID 01/26/18 02/27/18 History Cambogia] glucosamine sulfate 1,000 mg PO DAILY 01/26/18 02/27/18 History valsartan 40 mg PO DAILY 01/26/18 02/27/18 History Exam Vital signs: Vital Signs 02/27/18 09:11 02/27/18 09:19 02/27/18 13:23 Temperature 98.4 F 97.4 F L Pulse Rate 68 67 91 H Respiratory Rate 20 16 Blood Pressure 120/77 99/51 L Pulse Oximetry 95 97 93 L 02/27/18 13:30 02/27/18 13:45 02/27/18 14:00 Temperature Pulse Rate 85 87 80 Respiratory Rate 16 20 22 Blood Pressure 108/53 L 110/63 117/56 L Pulse Oximetry 93 L 96 93 L 02/27/18 14:15 02/27/18 14:30 02/27/18 14:45 Temperature 97.4 F L Pulse Rate 80 74 68 Respiratory Rate 20 22 20 Blood Pressure 115/59 L 118/57 L 109/58 L Pulse Oximetry 93 L 94 L 94 L Intake & Output 02/26/18 02/27/18 02/27/18 18:59 06:59 18:59 Intake Total 1987.50 / 1986.50 Output Total 500 / 500 Balance 1487.50 / 1487.50 Weight 87.5 kg Intake: IV 1217.50 / 1217.50 LR 1000 mL Inj 1,000 ML @ 30 1000 / 1000 mls/hr IV.SIG .Q24H [facility] Rx#: [id number] Cyklokapron Inj 875 MG In NS 217.50 / 217.50 Inj 100 ML @ 200 mls/hr IV.SIG ONCE [facility] Rx#:[id number] Anesthesia Amount 770 / 770 Output: Estimated Blood Loss 500 / 500 Other: Weight On Admission 87.5 kg - Constitutional no acute distress - Routine HEENT Exam Head: Present: normocephalic, atraumatic Eye: Present: EOMI, PERRL ENT: Present: mucous membranes moist - Routine Neck Exam Present: supple - Routine Respiratory Exam Present: CTA bilaterally - Routine Cardiovascular Exam Present: S1, S2, irregularly irregular Comments: no r/m/g - Routine Abdominal Exam Present: soft, normoactive bowel sounds Comments: no TTP. no peritoneal. - Routine Extremities Exam Comments: negative negative. - Routine Skin Exam Comments: right anterior surgical surgical wound dry clean and intact. - Routine Neurological Exam Present: alert, oriented X3 strength grossly intact. Results - Labs Labs: Laboratory Results - last 24 hr 02/27/18 02/27/18 02/27/18 08:44 08:53 14:23 PT 10.0 INR 1.0 POC Glucose 115 H 176 H - Imaging Impressions Shoulder X-Ray 02/27/18 00:00 CONCLUSION: Postoperative right shoulder joint replacement. Assessment and Plan - Plan This is a 67-year-old female with multiple medical conditions listed in the plan who presented with reverse right total shoulder arthroplasty Status post reverse right total shoulder arthroplasty done on 02/28/[address] Bynum. -Management per Dr. Bynum. Persistent atrial fibrillation on chronic anticoagulation with Coumadin -INR is 1. Reverse secondary for surgery. -Patient is high risk for CVA. She had 2 prior CVA. -Recommend bridging with therapeutic Lovenox when okay with orthopedic surgeon due to high risk for CVA. Coumadin already started by the primary team. -Continue with home medication Type 2 diabetes -Continue with home medication. Insulin sliding scale. Hypertension/hypothyroidism/asthma/fibromyalgia -Continue with home medication DVT prophylaxis -On Coumadin.
--- NOTE | 2018-02-27 16:26 | P.BOP ---
- Preoperative Diagnosis (1) Osteoarthritis of right shoulder - Postoperative Diagnosis (1) Status post reverse total arthroplasty of right shoulder (2) Osteoarthritis of right shoulder Date of procedure: 02/27/18 Procedure: Right Reverse Total Shoulder Implants: see implant record Anesthesia: GETA Surgeon: Tra Bynum MD [employer] Repairer: Christine Renteria Estimated blood loss (mL): 500 Urine output (mL): 0 (no armendariz) Pathology: none sent Condition: stable Disposition: PACU
[2018-02-27] MEDS: Insulin NovoLOG Aspart Correctional Sugar Inj SQ SCH (18:03)
[2018-02-27] MEDS: Clindamycin 900 mg/NS Premix 900 MG/50 ML PIGGYBACK IV.SIG SCH (19:16)
[2018-02-27] MEDS ORDERED: Melatonin 5 MG Tablet PO PRN (21:00)
[2018-02-27] MEDS ORDERED: [UNRECOGNIZED DRUG - OTHER] PO SCH (21:00)
[2018-02-27] MEDS: Gabapentin 400 MG Capsule PO SCH (22:01)
[2018-02-27] MEDS: dilTIAZem CD 180 MG Capsule PO SCH (22:01)
[2018-02-27] MEDS: Senna/Docusate Sodium 8.6/50 MG Tablet PO SCH (22:01)
[2018-02-27] MEDS: Insulin Detemir Inj 1,000 UNIT/10 ML Vial SQ SCH (22:01)
[2018-02-28] MEDS: Insulin NovoLOG Aspart Correctional Sugar Inj SQ SCH ×5 (01:15→20:44)
[2018-02-28] MEDS: Clindamycin 900 mg/NS Premix 900 MG/50 ML PIGGYBACK IV.SIG SCH ×2 (02:45→11:16)
[2018-02-28 07:20] LABS: Hemoglobin 12.1 gm/dL (11.6-15.3)
[2018-02-28] MEDS: dilTIAZem CD 180 MG Capsule PO SCH ×2 (08:03→20:44)
[2018-02-28] MEDS: Senna/Docusate Sodium 8.6/50 MG Tablet PO SCH ×2 (08:04→20:43)
[2018-02-28] MEDS: Multivitamin/Minerals Therapeutic Tablet PO SCH (08:04)
[2018-02-28] MEDS: Vitamin B Complex/Vitamin C Tablet PO SCH (08:05)
[2018-02-28] MEDS: Furosemide 40 MG Tablet PO SCH (08:05)
[2018-02-28] MEDS: Insulin Detemir Inj 1,000 UNIT/10 ML Vial SQ SCH ×2 (08:08→20:44)
[2018-02-28] MEDS ORDERED: GLUC CONDR OM3 DHA EPA FISH ST PO SCH (09:00)
[2018-02-28] MEDS ORDERED: [UNRECOGNIZED DRUG - OTHER] PO SCH (09:00)
[2018-02-28] MEDS ORDERED: GLUCOSAMINE SULFATE 1000 MG PO SCH (09:00)
[2018-02-28] MEDS ORDERED: MethylPREDNISolone Sod Succinate Inj 40 MG/ML Vial IV.PUSH ONE (11:32)
--- NOTE | 2018-02-28 11:32 | P.PNIM ---
Subjective Interval history: Follow-up visit shortness of breath, congestion, history of asthma, status post reverse right total shoulder arthroplasty. Patient seen and examined today. Reports increasing shortness of breath. States that she had a bad reaction from getting [place]. States that she is unable to tolerate it. States that she can tolerate morphine and Percocet only. States she has history of asthma but not on any medications regularly. Denies chest pain, palpitations, headaches, dizziness. Denies fevers, chills, n/v/d. Denies dysuria. Physical Exam Vital signs: Vital Signs 02/27/18 13:23 02/27/18 13:30 02/27/18 13:45 Temperature 97.4 F L Pulse Rate 91 H 85 87 Respiratory Rate 16 16 20 Blood Pressure 99/51 L 108/53 L 110/63 Pulse Oximetry 93 L 93 L 96 02/27/18 14:00 02/27/18 14:15 02/27/18 14:30 Temperature Pulse Rate 80 80 74 Respiratory Rate 22 20 22 Blood Pressure 117/56 L 115/59 L 118/57 L Pulse Oximetry 93 L 93 L 94 L 02/27/18 14:45 02/27/18 20:00 02/27/18 20:06 Temperature 97.4 F L 97.4 F L Pulse Rate 68 75 Respiratory Rate 20 17 18 Blood Pressure 109/58 L 110/58 L Pulse Oximetry 94 L 92 L 02/28/18 00:00 02/28/18 04:00 02/28/18 08:16 Temperature 97.6 F 97.6 F 98.9 F Pulse Rate 78 78 85 Respiratory Rate 16 17 20 Blood Pressure 132/60 104/60 142/79 H Pulse Oximetry 92 L 92 L 93 L 02/28/18 10:45 02/28/18 11:00 02/28/18 11:24 Temperature 97.5 F L Pulse Rate 78 Respiratory Rate 17 17 19 Blood Pressure 120/58 L Pulse Oximetry 92 L Intake & Output 02/27/18 02/28/18 02/28/18 18:59 06:59 18:59 Intake Total 2427.50 / 2427.50 1500 / 1500 Output Total 500 / 500 Balance 1927.50 / 1927.50 1500 / 1500 Weight 87.5 kg Intake: IV 1417.50 / 1417.50 900 / 900 LR 1000 mL Inj 1,000 ML @ 80 200 / 200 800 / 800 mls/hr IV.CONT .[id number] [facility] Rx# :[id number] Cleocin 900 mg/NS Premix 900 mg 100 / 100 In 50 ml @ 100 mls/hr IV.SIG Q8H [facility] Rx#:[id number] LR 1000 mL Inj 1,000 ML @ 30 1000 / 1000 mls/hr IV.SIG .Q24H [facility] Rx#: [id number] Cyklokapron Inj 875 MG In NS 217.50 / 217.50 Inj 100 ML @ 200 mls/hr IV.SIG ONCE [facility] Rx#:[id number] Oral 240 / 240 600 / 600 Anesthesia Amount 770 / 770 Output: Estimated Blood Loss 500 / 500 Other: # Voids 3 Date of Last Bowel Movement 02/26/18 02/26/18 02/26/18 Weight On Admission 87.5 kg Narrative: GENERAL: This is a well-nourished, well-developed patient, in no apparent distress. SKIN: Warm and dry. HEENT: Normocephalic. Pupils equal round and reactive. Nose without bleeding. Airway patent. NECK: Trachea midline. Supple. CARDIOVASCULAR: Regular rate and rhythm without murmurs, gallops, or rubs. RESPIRATORY: No rales, or rhonchi. Mild expiratory wheeze. Diminished bases GASTROINTESTINAL: Abdomen soft, non-tender, nondistended. Bowel Sounds normoactive x4. MUSCULOSKELETAL: Extremities without clubbing, cyanosis. Right shoulder incision site dressing intact. Sling in place. Trace edema. NEUROLOGICAL: Awake and alert. Oriented to time, place, person. No focal neuro deficit. Moves all extremities. Normal speech.` Results - Labs CBC & Chem 7: 02/28/18 05:45 Laboratory Results - last 24 hr 02/27/18 02/27/18 02/28/18 14:23 18:01 01:05 Hgb Hct POC Glucose 176 H 236 H 263 H 02/28/18 02/28/18 02/28/18 05:45 06:51 11:18 Hgb 12.1 Hct 36.0 POC Glucose 181 H 216 H - Imaging Impressions Shoulder X-Ray 02/27/18 00:00 CONCLUSION: Postoperative right shoulder joint replacement. Assessment and Plan - Plan This is a 67-year-old female with multiple medical conditions listed in the plan who presented with reverse right total shoulder arthroplasty Shortness of breath, congestion, history of asthma -DuoNeb scheduled and as needed -Solu-Medrol 40 mg 1 dose -O2 nasal cannula to keep O2 sat greater than 92% -Monitor respiratory status Status post reverse right total shoulder arthroplasty done on 02/28/[address] Bynum. -Management per Dr. Bynum. -Pain management switched to Percocet, morphine for breakthrough pain. Persistent atrial fibrillation on chronic anticoagulation with Coumadin -Reverse secondary for surgery. -Patient is high risk for CVA. She had 2 prior CVA. -Recommend bridging with therapeutic Lovenox when okay with orthopedic surgeon due to high risk for CVA. -Coumadin already started by the primary team. -Continue with home medication Type 2 diabetes -Continue with home medication. Insulin sliding scale. Hypertension/hypothyroidism/fibromyalgia -Continue with home medication DVT prophylaxis -On Coumadin. Code Status: Full code Discussed Condition With: Patient, nurse Discharge Planning: DC disposition by primary team
--- NOTE | 2018-02-28 12:14 | P.PNOP ---
Subjective Interval history: Patient is comfortable today with minimal complaints of pain. Physical Exam Vital signs: Vital Signs 02/27/18 13:23 02/27/18 13:30 02/27/18 13:45 Temperature 97.4 F L Pulse Rate 91 H 85 87 Respiratory Rate 16 16 20 Blood Pressure 99/51 L 108/53 L 110/63 Pulse Oximetry 93 L 93 L 96 02/27/18 14:00 02/27/18 14:15 02/27/18 14:30 Temperature Pulse Rate 80 80 74 Respiratory Rate 22 20 22 Blood Pressure 117/56 L 115/59 L 118/57 L Pulse Oximetry 93 L 93 L 94 L 02/27/18 14:45 02/27/18 20:00 02/27/18 20:06 Temperature 97.4 F L 97.4 F L Pulse Rate 68 75 Respiratory Rate 20 17 18 Blood Pressure 109/58 L 110/58 L Pulse Oximetry 94 L 92 L 02/28/18 00:00 02/28/18 04:00 02/28/18 08:16 Temperature 97.6 F 97.6 F 98.9 F Pulse Rate 78 78 85 Respiratory Rate 16 17 20 Blood Pressure 132/60 104/60 142/79 H Pulse Oximetry 92 L 92 L 93 L 02/28/18 10:45 02/28/18 11:00 02/28/18 11:24 Temperature 97.5 F L Pulse Rate 78 Respiratory Rate 17 17 19 Blood Pressure 120/58 L Pulse Oximetry 92 L 02/28/18 11:34 Temperature Pulse Rate Respiratory Rate Blood Pressure Pulse Oximetry 92 L Intake & Output 02/27/18 02/28/18 02/28/18 18:59 06:59 18:59 Intake Total 2427.50 / 2427.50 1500 / 1500 50 / 50 Output Total 500 / 500 Balance 1927.50 / 1927.50 1500 / 1500 50 / 50 Weight 87.5 kg Intake: IV 1417.50 / 1417.50 900 / 900 50 / 50 LR 1000 mL Inj 1,000 ML @ 80 200 / 200 800 / 800 mls/hr IV.CONT .[id number] YAJAIRA Rx# :[id number] Cleocin 900 mg/NS Premix 900 mg 100 / 100 50 / 50 In 50 ml @ 100 mls/hr IV.SIG Q8H YAJAIRA Rx#:[id number] LR 1000 mL Inj 1,000 ML @ 30 1000 / 1000 mls/hr IV.SIG .Q24H YAJAIRA Rx#: [id number] Cyklokapron Inj 875 MG In NS 217.50 / 217.50 Inj 100 ML @ 200 mls/hr IV.SIG ONCE YAJAIRA Rx#:[id number] Oral 240 / 240 600 / 600 Anesthesia Amount 770 / 770 Output: Estimated Blood Loss 500 / 500 Other: # Voids 3 Date of Last Bowel Movement 02/26/18 02/26/18 02/26/18 Weight On Admission 87.5 kg - Constitutional no acute distress Results - Labs CBC & Chem 7: 02/28/18 05:45 Laboratory Results - last 24 hr 02/27/18 02/27/18 02/28/18 14:23 18:01 01:05 Hgb Hct POC Glucose 176 H 236 H 263 H 02/28/18 02/28/18 02/28/18 05:45 06:51 11:18 Hgb 12.1 Hct 36.0 POC Glucose 181 H 216 H - Imaging Impressions Shoulder X-Ray 02/27/18 00:00 CONCLUSION: Postoperative right shoulder joint replacement. Assessment and Plan - Problem List (1) Status post reverse total arthroplasty of right shoulder Code(s): Z96.611 - Presence of right artificial shoulder joint Status: Acute - Attending Attestation Attending Attestation: Patient's wound is clean and dry. She is essentially neurovascularly intact to her fingers. She is only in a sling and needs the swath part which we will order. She may be discharged to halfway facility when bed is available and she is deemed to be medically stable by her hospitalist.
[2018-02-28] MEDS: Gabapentin 400 MG Capsule PO SCH (20:44)
[2018-03-01] MEDS: Insulin NovoLOG Aspart Correctional Sugar Inj SQ SCH ×4 (01:03→18:02)
[2018-03-01 08:19] LABS: Hematocrit 33.9 % (35.0-46.0); Hemoglobin 11.2 gm/dL (11.6-15.3)
[2018-03-01] MEDS: Furosemide 40 MG Tablet PO SCH (08:20)
[2018-03-01] MEDS: Multivitamin/Minerals Therapeutic Tablet PO SCH (08:20)
[2018-03-01] MEDS: Senna/Docusate Sodium 8.6/50 MG Tablet PO SCH ×2 (08:20→20:29)
[2018-03-01] MEDS: Vitamin B Complex/Vitamin C Tablet PO SCH (08:21)
[2018-03-01] MEDS: dilTIAZem CD 180 MG Capsule PO SCH ×2 (08:21→20:29)
[2018-03-01] MEDS: Insulin Detemir Inj 1,000 UNIT/10 ML Vial SQ SCH ×2 (08:22→20:29)
--- NOTE | 2018-03-01 13:35 | P.PN ---
Subjective Interval history: Follow-up visit shortness of breath, congestion, history of asthma, status post reverse right total shoulder arthroplasty. States she is doing a lot better. Shortness of breath and dyspnea has improved. Denies chest pain, palpitations, headaches, dizziness. Denies fevers, chills, n/v/d. Denies dysuria. Physical Exam Vital signs: Vital Signs 02/28/18 15:56 02/28/18 20:00 02/28/18 20:09 Temperature 97.6 F 97.6 F Pulse Rate 74 71 71 Respiratory Rate 19 18 Blood Pressure 107/56 L 127/66 Pulse Oximetry 92 L 92 L 02/28/18 20:43 03/01/18 00:00 03/01/18 04:00 Temperature 97.9 F 98 F Pulse Rate 77 84 Respiratory Rate 16 17 Blood Pressure 118/66 122/61 Pulse Oximetry 92 L 93 L 93 L 03/01/18 08:00 03/01/18 08:31 03/01/18 08:35 Temperature 97.7 F Pulse Rate 80 80 Respiratory Rate 17 17 Blood Pressure 132/61 Pulse Oximetry 93 L 93 L 93 L 03/01/18 11:44 03/01/18 11:45 Temperature 97.7 F Pulse Rate 80 Respiratory Rate 20 Blood Pressure 128/72 Pulse Oximetry 90 L 90 L Intake & Output 02/28/18 03/01/18 03/01/18 18:59 06:59 18:59 Intake Total 50 / 50 720 / 720 Balance 50 / 50 720 / 720 Weight 87.5 kg Intake: IV 50 / 50 Cleocin 900 mg/NS Premix 900 mg 50 / 50 In 50 ml @ 100 mls/hr IV.SIG Q8H YAJAIRA Rx#:[id number] Oral 720 / 720 Other: # Voids 3 Date of Last Bowel Movement 02/26/18 02/26/18 02/26/18 Narrative: GENERAL: This is a well-nourished, well-developed patient, in no apparent distress. SKIN: Warm and dry. HEENT: Normocephalic. Pupils equal round and reactive. Nose without bleeding. Airway patent. NECK: Trachea midline. Supple. CARDIOVASCULAR: Regular rate and rhythm without murmurs, gallops, or rubs. RESPIRATORY: No rales, or rhonchi. Mild expiratory wheeze. Diminished bases GASTROINTESTINAL: Abdomen soft, non-tender, nondistended. Bowel Sounds normoactive x4. MUSCULOSKELETAL: Extremities without clubbing, cyanosis. Right shoulder incision site dressing intact. Sling in place. Trace edema. NEUROLOGICAL: Awake and alert. Oriented to time, place, person. No focal neuro deficit. Moves all extremities. Normal speech.` Results - Labs CBC & Chem 7: 03/01/18 07:11 Laboratory Results - last 24 hr 02/28/18 03/01/18 03/01/18 15:57 00:55 06:25 Hgb Hct POC Glucose 274 H 274 H 148 H 03/01/18 03/01/18 07:11 11:43 Hgb 11.2 L Hct 33.9 L POC Glucose 199 H Assessment and Plan - Plan This is a 67-year-old female with multiple medical conditions listed in the plan who presented with reverse right total shoulder arthroplasty Shortness of breath, congestion, history of asthma -DuoNeb scheduled and as needed -Solu-Medrol 40 mg 1 dose given -O2 nasal cannula to keep O2 sat greater than 92% -Monitor respiratory status -Improved Status post reverse right total shoulder arthroplasty done on 02/28/[address] Bynum. -Management per Dr. Bynum. -Pain management switched to Percocet, morphine for breakthrough pain. -Plan for transfer to SNF. Per patient first choice was [facility]. CM following, declined by [facility] as patient dose not have any active issues Persistent atrial fibrillation on chronic anticoagulation with Coumadin -Reverse secondary for surgery. -Patient is high risk for CVA. She had 2 prior CVA. -Recommend bridging with therapeutic Lovenox when okay with orthopedic surgeon due to high risk for CVA. -Coumadin already started by the primary team. -Continue with home medication Type 2 diabetes -Continue with home medication. Insulin sliding scale. Hypertension/hypothyroidism/fibromyalgia -Continue with home medication DVT prophylaxis -On Coumadin. Code Status: Full Code Discussed Condition With: Patient, nursing Discharge Planning: DC disposition by primary team
--- NOTE | 2018-03-01 13:52 | P.PNOP ---
Subjective Interval history: Pt comfortable today without complaints. awaiting dc to SNF per insurance. Physical Exam Vital signs: Vital Signs 02/28/18 15:56 02/28/18 20:00 02/28/18 20:09 Temperature 97.6 F 97.6 F Pulse Rate 74 71 71 Respiratory Rate 19 16 18 Blood Pressure 107/56 L 127/66 Pulse Oximetry 92 L 92 L 02/28/18 20:43 03/01/18 00:00 03/01/18 04:00 Temperature 97.9 F 98 F Pulse Rate 77 84 Respiratory Rate 16 17 Blood Pressure 118/66 122/61 Pulse Oximetry 92 L 93 L 93 L 03/01/18 08:00 03/01/18 08:31 03/01/18 08:35 Temperature 97.7 F Pulse Rate 80 80 Respiratory Rate 17 17 Blood Pressure 132/61 Pulse Oximetry 93 L 93 L 93 L 03/01/18 11:44 03/01/18 11:45 Temperature 97.7 F Pulse Rate 80 Respiratory Rate 20 Blood Pressure 128/72 Pulse Oximetry 90 L 90 L Intake & Output 02/28/18 03/01/18 03/01/18 18:59 06:59 18:59 Intake Total 50 / 50 720 / 720 Balance 50 / 50 720 / 720 Weight 87.5 kg Intake: IV 50 / 50 Cleocin 900 mg/NS Premix 900 mg 50 / 50 In 50 ml @ 100 mls/hr IV.SIG Q8H YAJAIRA Rx#:[id number] Oral 720 / 720 Other: # Voids 3 Date of Last Bowel Movement 02/26/18 02/26/18 02/26/18 - Constitutional no acute distress Results - Labs CBC & Chem 7: 03/01/18 07:11 Laboratory Results - last 24 hr 02/28/18 03/01/18 03/01/18 15:57 00:55 06:25 Hgb Hct POC Glucose 274 H 274 H 148 H 03/01/18 03/01/18 07:11 11:43 Hgb 11.2 L Hct 33.9 L POC Glucose 199 H Assessment and Plan - Problem List (1) Status post reverse total arthroplasty of right shoulder Code(s): Z96.611 - Presence of right artificial shoulder joint Status: Acute - Attending Attestation Attending Attestation: Doing well. Getting out of bed on own and ambulating. Sling and swath intact and wound is clean and dry. NV intact to fingers. SNF tomorrow.
[2018-03-01] MEDS: Gabapentin 400 MG Capsule PO SCH (20:29)
[2018-03-02] MEDS: Insulin NovoLOG Aspart Correctional Sugar Inj SQ SCH ×4 (00:33→19:10)
[2018-03-02] MEDS: Senna/Docusate Sodium 8.6/50 MG Tablet PO SCH ×2 (08:22→20:10)
[2018-03-02] MEDS: Furosemide 40 MG Tablet PO SCH (08:22)
[2018-03-02] MEDS: dilTIAZem CD 180 MG Capsule PO SCH ×2 (08:22→20:09)
[2018-03-02] MEDS: Multivitamin/Minerals Therapeutic Tablet PO SCH (08:22)
[2018-03-02] MEDS: Vitamin B Complex/Vitamin C Tablet PO SCH (08:23)
[2018-03-02] MEDS: Insulin Detemir Inj 1,000 UNIT/10 ML Vial SQ SCH ×2 (09:32→20:09)
--- NOTE | 2018-03-02 10:07 | P.PNOP ---
Subjective Interval history: Patient is comfortable today with no complaints. She feels ready for [facility] to [facility] today. Physical Exam Vital signs: Vital Signs 03/01/18 11:44 03/01/18 11:45 03/01/18 14:19 Temperature 97.7 F Pulse Rate 80 80 Respiratory Rate 20 18 Blood Pressure 128/72 Pulse Oximetry 90 L 90 L 03/01/18 16:00 03/01/18 16:15 03/01/18 20:00 Temperature 97.9 F 97.8 F Pulse Rate 84 87 Respiratory Rate 19 17 Blood Pressure 143/84 H 140/85 Pulse Oximetry 92 L 92 L 92 L 03/01/18 20:32 03/02/18 00:00 03/02/18 04:00 Temperature 97.9 F 97.9 F Pulse Rate 74 75 Respiratory Rate 16 18 Blood Pressure 131/77 131/60 Pulse Oximetry 93 L 92 L 96 03/02/18 08:00 Temperature 97.2 F L Pulse Rate 70 Respiratory Rate 16 Blood Pressure 100/53 L Pulse Oximetry 97 Intake & Output 03/01/18 03/02/18 03/02/18 18:59 06:59 18:59 Intake Total 480 / 480 Balance 480 / 480 Weight 91.3 kg Intake: Oral 480 / 480 Other: # Voids 3 4 Date of Last Bowel Movement 03/01/18 03/01/18 # Bowel Movements 1 - Constitutional no acute distress Results - Labs CBC & Chem 7: 03/01/18 07:11 Laboratory Results - last 24 hr 03/01/18 03/01/18 03/02/18 11:43 16:15 00:27 POC Glucose 199 H 176 H 155 H 03/02/18 06:10 POC Glucose 95 Assessment and Plan - Problem List (1) Status post reverse total arthroplasty of right shoulder Code(s): Z96.611 - Presence of right artificial shoulder joint Status: Acute - Attending Attestation Attending Attestation: Wound is clean and dry and dressing is intact. She is neurovascular intact to the fingertips. Plan is for [facility] for [facility]. She has appointment for follow-up in the office for recheck. She is being discharged in good condition today.
--- NOTE | 2018-03-02 14:37 | P.PN ---
Subjective Interval history: Follow-up visit shortness of breath, congestion, history of asthma, status post reverse right total shoulder arthroplasty. Denies shortness of breath. Complains of right shoulder pain. Tearful. Waiting for her pain medications. States she is still trying to find rehab center for her. Denies chest pain, palpitations, headaches, dizziness. Denies fevers, chills, n/v/d. Denies dysuria. Physical Exam Vital signs: Vital Signs 03/01/18 16:00 03/01/18 16:15 03/01/18 20:00 Temperature 97.9 F 97.8 F Pulse Rate 84 87 Respiratory Rate 19 17 Blood Pressure 143/84 H 140/85 Pulse Oximetry 92 L 92 L 92 L 03/01/18 20:32 03/02/18 00:00 03/02/18 04:00 Temperature 97.9 F 97.9 F Pulse Rate 74 75 Respiratory Rate 16 18 Blood Pressure 131/77 131/60 Pulse Oximetry 93 L 92 L 96 03/02/18 08:00 03/02/18 12:00 Temperature 97.2 F L 97.5 F L Pulse Rate 70 77 Respiratory Rate 16 18 Blood Pressure 100/53 L 137/68 Pulse Oximetry 97 93 L Intake & Output 03/01/18 03/02/18 03/02/18 18:59 06:59 18:59 Intake Total 480 / 480 Balance 480 / 480 Weight 91.3 kg Intake: Oral 480 / 480 Other: # Voids 3 4 Date of Last Bowel Movement 03/01/18 03/01/18 # Bowel Movements 1 Narrative: GENERAL: This is a well-nourished, well-developed patient, in no apparent distress. SKIN: Warm and dry. HEENT: Normocephalic. Pupils equal round and reactive. Nose without bleeding. Airway patent. NECK: Trachea midline. Supple. CARDIOVASCULAR: Regular rate and rhythm without murmurs, gallops, or rubs. RESPIRATORY: No rales, or rhonchi. Diminished bases. No wheeze. GASTROINTESTINAL: Abdomen soft, non-tender, nondistended. Bowel Sounds normoactive x4. MUSCULOSKELETAL: Extremities without clubbing, cyanosis. Right shoulder incision site dressing intact. Sling in place. Trace edema. NEUROLOGICAL: Awake and alert. Oriented to time, place, person. No focal neuro deficit. Moves all extremities. Normal speech.` Results - Labs CBC & Chem 7: 03/01/18 07:11 Laboratory Results - last 24 hr 03/01/18 03/02/18 03/02/18 16:15 00:27 06:10 POC Glucose 176 H 155 H 95 03/02/18 13:15 POC Glucose 131 H Assessment and Plan - Plan This is a 67-year-old female with multiple medical conditions listed in the plan who presented with reverse right total shoulder arthroplasty Shortness of breath, congestion, history of asthma -DuoNeb scheduled and as needed -Solu-Medrol 40 mg 1 dose given -O2 nasal cannula to keep O2 sat greater than 92% -Monitor respiratory status -Improved Status post reverse right total shoulder arthroplasty done on 02/28/[address] Bynum. -Management per Dr. Bynum. -Pain management switched to Percocet, morphine for breakthrough pain. -Plan for transfer to SNF. Persistent atrial fibrillation on chronic anticoagulation with Coumadin -Reverse secondary for surgery. -Patient is high risk for CVA. She had 2 prior CVA. -Recommend bridging with therapeutic Lovenox when okay with orthopedic surgeon due to high risk for CVA. -Coumadin already started by the primary team. -Continue with home medication Type 2 diabetes -Continue with home medication. Insulin sliding scale. Hypertension/hypothyroidism/fibromyalgia -Continue with home medication DVT prophylaxis -On Coumadin. Code Status: Full Code Discussed Condition With: Patient, nursing Discharge Planning: DC disposition by primary team
[2018-03-02] MEDS: Gabapentin 400 MG Capsule PO SCH (20:09)
[2018-03-03] MEDS: Insulin NovoLOG Aspart Correctional Sugar Inj SQ SCH ×3 (01:00→13:18)
--- NOTE | 2018-03-03 08:07 | P.PNOP ---
Subjective Interval history: Patient comfortable and awaiting discharge to senior living facility when her insurance allows her. Physical Exam Vital signs: Vital Signs 03/02/18 12:00 03/02/18 16:00 03/02/18 20:00 Temperature 97.5 F L 98.3 F 98.5 F Pulse Rate 77 85 80 Respiratory Rate 18 16 17 Blood Pressure 137/68 119/60 142/74 H Pulse Oximetry 93 L 93 L 93 L 03/03/18 00:00 03/03/18 04:00 Temperature 98.3 F 98.4 F Pulse Rate 82 76 Respiratory Rate 17 18 Blood Pressure 141/72 H 142/74 H Pulse Oximetry 93 L 95 Intake & Output 03/02/18 03/03/18 03/03/18 18:59 06:59 18:59 Intake Total 480 / 480 Balance 480 / 480 Weight 87.5 kg Intake: Oral 480 / 480 Other: # Voids 4 3 Date of Last Bowel Movement 03/02/18 # Bowel Movements 1 - Constitutional no acute distress Results - Labs CBC & Chem 7: 03/01/18 07:11 Laboratory Results - last 24 hr 03/02/18 03/02/18 03/03/18 13:15 19:03 00:03 POC Glucose 131 H 150 H 109 03/03/18 06:42 POC Glucose 100 Assessment and Plan - Problem List (1) Status post reverse total arthroplasty of right shoulder Code(s): Z96.611 - Presence of right artificial shoulder joint Status: Acute - Attending Attestation Attending Attestation: Dressing is dry and intact. She is neurovascular intact to the fingertips. Plan is for her to go to the alf once insurance has allowed her to do so. She is in good condition.
[2018-03-03] MEDS: Furosemide 40 MG Tablet PO SCH (09:43)
[2018-03-03] MEDS: Senna/Docusate Sodium 8.6/50 MG Tablet PO SCH (09:44)
[2018-03-03] MEDS: Multivitamin/Minerals Therapeutic Tablet PO SCH (09:44)
[2018-03-03] MEDS: Vitamin B Complex/Vitamin C Tablet PO SCH (09:44)
[2018-03-03] MEDS: dilTIAZem CD 180 MG Capsule PO SCH (09:44)
[2018-03-03] MEDS: Insulin Detemir Inj 1,000 UNIT/10 ML Vial SQ SCH (09:47)
[2018-03-03 11:56] LABS: Prothrombin Time 10.4 sec (9.8-11.6)
--- NOTE | 2018-03-03 12:01 | P.DCO ---
- Physical Therapy Order: Evaluate and treat - Occupational Therapy Order: Evaluate and treat - Home Health Nursing Order: Nursing assessment with vital signs - Sonar Subsystem Equipment Operator Order: To evaluate: Living conditions/environment, Support services - Case Management Consult Yes - Certification I have seen patient Faith Renner on 03/03/18. My clinical findings support the need for the requested home health care services because: Limited ability to care for self I certify that my clinical findings support that this patient is homebound because: Post-op weakness
[2018-03-03 13:21] VITALS: RESP 18
[2018-03-03] MEDS ORDERED: Warfarin Consult Pharmacy OTHER PRN (13:42)
--- NOTE | 2018-03-03 16:07 | P.PN ---
Subjective Interval history: Follow-up visit for right total shoulder arthroplasty, history of asthma, A. fib. Patient is seen and examined resting in bed, appears to be in no acute distress. She denies any fevers, chills, nausea, vomiting, diarrhea, cough, shortness of breath or chest pain. Patient is awaiting placement, voices no acute concerns. Physical Exam Vital signs: Vital Signs 03/02/18 20:00 03/03/18 00:00 03/03/18 04:00 Temperature 98.5 F 98.3 F 98.4 F Pulse Rate 80 82 76 Respiratory Rate 17 17 18 Blood Pressure 142/74 H 141/72 H 142/74 H Pulse Oximetry 93 L 93 L 95 03/03/18 08:00 03/03/18 12:00 Temperature 99.7 F H 98.7 F Pulse Rate 88 79 Respiratory Rate 16 18 Blood Pressure 149/71 H 123/63 Pulse Oximetry 95 93 L Intake & Output 03/02/18 03/03/18 03/03/18 18:59 06:59 18:59 Intake Total 480 / 480 Balance 480 / 480 Weight 87.5 kg Intake: Oral 480 / 480 Other: # Voids 4 3 Date of Last Bowel Movement 03/02/18 # Bowel Movements 1 Narrative: GENERAL: This is a well-nourished, well-developed patient, in no apparent distress. SKIN: Warm and dry. HEENT: Normocephalic. Pupils equal round and reactive. Airway patent. NECK: Trachea midline. Supple. CARDIOVASCULAR: Regular rate and rhythm without murmurs, gallops, or rubs. RESPIRATORY: No rales, or rhonchi. Diminished bases. No wheeze. GASTROINTESTINAL: Abdomen soft, non-tender, nondistended. Bowel Sounds normoactive x4. MUSCULOSKELETAL: Extremities without clubbing, cyanosis. Right shoulder incision site dressing intact. Sling in place. Trace edema. NEUROLOGICAL: Awake and alert. Oriented to time, place, person. No focal neuro deficit. Moves all extremities. Normal speech. Results - Labs CBC & Chem 7: 03/01/18 07:11 Laboratory Results - last 24 hr 03/02/18 03/03/18 03/03/18 19:03 00:03 06:42 PT INR POC Glucose 150 H 109 100 03/03/18 03/03/18 03/03/18 09:07 11:28 12:36 PT 10.4 INR 1.0 POC Glucose 101 177 H Assessment and Plan - Plan This is a 67-year-old female with multiple medical conditions listed in the plan who presented with reverse right total shoulder arthroplasty Shortness of breath, congestion, history of asthma -DuoNeb scheduled and as needed - s/p Solu-Medrol 40 mg 1 dose given -O2 nasal cannula to keep O2 sat greater than 92%, on room air with saturations in the high 90s -Monitor respiratory status -Improved Status post reverse right total shoulder arthroplasty done on 02/28/[address] Bynum. -Management per Dr. Bynum. -Pain management switched to Percocet, morphine for breakthrough pain. -Plan for transfer to SNF. -Low-grade temp noted this morning of 99.7, afebrile at noon Persistent atrial fibrillation on chronic anticoagulation with Coumadin -Reverse secondary for surgery. -Patient is high risk for CVA. She had 2 prior CVA. -Currently on Coumadin, INR this morning subtherapeutic, pharmacy consulted to assist with dosing -Continue with home medication Type 2 diabetes -Continue with home medication. Insulin sliding scale. Blood sugar stable Hypertension/hypothyroidism/fibromyalgia -Continue with home medication DVT prophylaxis -On Coumadin. Discussed Condition With: Discussed with patient and invoicing machine operator Planning: Awaiting placement issue, case management to establish facility.
[2018-03-03 17:27] VITALS: BP 152/79; PULSE 77; TEMP 98.9; O2SAT 95
--- NOTE | 2018-03-04 07:51 | MD ---
cc: Jolene Bynum MD DATE OF DISCHARGE: 03/03/2018 ADMITTING DIAGNOSIS: Osteoarthritic degeneration, right shoulder. DISCHARGE DIAGNOSIS: Osteoarthritic degeneration, right shoulder. HOSPITAL COURSE: This pleasant 67-year-old female who was admitted on 02/28/2018 at which time she underwent a reverse right shoulder arthroplasty. She received a course of prophylactic IV antibiotics and began out of bed, tolerating food and fluid well on p.o. pain medication. She continued to improve. Remaining afebrile, vital signs stable, neurovascularly intact; and was discharged to a long term facility on postoperative day #3 in good condition with instructions for continuation care and followup in the office for a recheck. Jolene Bynum MD JRR/rs , 10:09 AM , 10:14 AM
--- NOTE | 2018-03-04 13:55 | MD ---
cc: Jolene Bynum MD DATE OF DISCHARGE: 03/03/2018 ADMITTING DIAGNOSIS: Osteoarthritic degeneration, right shoulder. DISCHARGE DIAGNOSIS: Osteoarthritic degeneration, right shoulder. HOSPITAL COURSE: This 67-year-old female was admitted on 02/27/2018, at which time she underwent a reverse total shoulder arthroplasty. She received a course of prophylactic IV antibiotics and within 24 hours started out of bed, tolerating food and fluid well and p.o. pain medications. She continued to improve; awaited discharge for correction facility, which never happened as the insurance company took 4 days to try to approve it. By that time, she was doing so well she was able to be discharged home on postoperative day #5 in good condition with instructions for home health care, physical therapy, occupational therapy and followup in the office for a recheck. J. Evelio Bynum MD JRR/carmen/ashok , 12:05 PM , 12:10 PM
== END 2018-03-03 20:38 | disposition home health service (06) ==
LOC: HSDC 08:08 → N06 15:10
PROVIDERS: ADMIT Surgery; ATTEND Surgery

== ENCOUNTER 2018-03-04 09:39 | Observation (INO) ==
--- NOTE | 2018-03-04 10:46 | XR ---
EXAM DATE: 03/04/2018 10:28 AM EDT AGE/SEX: 67 years / Female INDICATIONS: . Chest pain. CLINICAL DATA: This is the patient's initial encounter. Patient reports that signs and symptoms have been present for 1 day and indicates a pain score of 10/10. MEDICAL/SURGICAL HISTORY: Asthma. Hypertension. . Cardiac loop recorder. Right total shoulder. COMPARISON: [facility], XR CHEST PA AND LAT, 05/16/2017. . FINDINGS: PA and lateral views of the chest demonstrate the lungs to be symmetrically aerated without evidence of mass, infiltrate or effusion. The cardiomediastinal contours are unremarkable. Right shoulder arth roplasty noted. CONCLUSION: Negative chest for acute disease. Electronically signed by: Anuj Fields MD 03/04/2018 10:44 AM EDT
[2018-03-04 11:36] LABS: Baso # (Auto) 0.1 th/mm3 (0.0-0.2); Baso % (Auto) 0.8 % (0.0-2.0); Eos # (Auto) 0.2 th/mm3 (0.0-0.4); Eos % (Auto) 1.5 % (0.0-4.0); Hematocrit 41.8 % (35.0-46.0); Hemoglobin 14.1 gm/dL (11.6-15.3); Mean Corpuscular HGB Conc 33.7 % (32.0-36.0); Mean Corpuscular Volume 95.2 fL (80.0-100.0); Mean Platelet Volume 8.3 fL (7.0-11.0); Mono # (Auto) 0.8 th/mm3 (0.0-0.9); Mono % (Auto) 7.9 % (0.0-8.0); Neut # (Auto) 7.1 th/mm3 (1.8-7.7); Neut % (Auto) 69.8 % (16.0-70.0); Platelet Count 328 th/mm3 (150-450); Red Blood Count 4.39 mil/mm3 (4.00-5.30); Red Cell Distribution Width 13.6 % (11.6-17.2); White Blood Count 10.2 th/mm3 (4.0-11.0)
[2018-03-04 11:45] LABS: Activated Partial Thrombo Time 27.9 sec (24.3-30.1); Prothrombin Time 10.3 sec (9.8-11.6)
[2018-03-04 12:02] LABS: Anion Gap 7 meq/L (5-15); Blood Urea Nitrogen 20 mg/dL (7-18); Calcium 9.4 mg/dL (8.5-10.1); Carbon Dioxide 31.9 meq/L (21.0-32.0); Chloride 101 meq/L (98-107); Glomerular Filtration Rate 58 mL/min (>89); Glucose,Random 147 mg/dL (74-106); Potassium 3.4 meq/L (3.5-5.1); Sodium 140 meq/L (136-145)
--- NOTE | 2018-03-04 13:56 | ED ---
HPI General Chief Complaint: Chest Pain Stated Complaint: GI Time Seen by Provider: 03/04/18 13:43 History of Present Illness HPI narrative: Patient presents to the emergency department complaining of chest pain that started this morning. Chest pains described as being in the left side, intermittent, 5 minutes in duration, radiates to left shoulder, currently having 6 out of 10 chest pain now. Patient also reports headache, nausea, fever and chills with T-max being 102 this morning. States she is ambulate without difficulty and denies lower extremity edema. She states that she did have some shortness of breath at rest and on exertion. Patient status post right shoulder replacement on Friday. Patient states that she also is on Coumadin for A. fib and she restarted the medication on Friday Complete Quality Measures for STEMI Alert Patients Related Data Home Medications Medication Instructions Recorded Confirmed cholecalciferol (vitamin D3) 1,000 units PO DAILY 01/19/18 03/04/18 [Vitamin D3] diltiazem HCl [Cardizem CD] 180 mg PO BID 01/19/18 03/04/18 furosemide 40 mg PO DAILY 01/19/18 03/04/18 gabapentin 400 mg PO HS 01/19/18 03/04/18 [id number]-st 1 tab PO DAILY 01/19/18 03/04/18 [Glucosamine Chondroitin PLUS] insulin detemir U-100 [Levemir 12 unit SUB-Q BID 01/19/18 03/04/18 U-100 Insulin] magnesium 100 mg PO DAILY 01/19/18 03/04/18 melatonin 10 mg PO HS PRN 01/19/18 03/04/18 multivitamin with iron [One Daily 1 tab PO DAILY 01/19/18 03/04/18 Multi-Vit w-Mineral] vitamin B complex [B-Complex] 1 tab PO DAILY 01/19/18 03/04/18 warfarin 5 mg PO 2XWEEK 01/19/18 03/04/18 warfarin 7.5 mg PO QTUTHSA 01/19/18 03/04/18 chromium-brindal peck [Garcinia 1 tab PO BID 01/26/18 03/04/18 Cambogia] glucosamine sulfate 1,000 mg PO DAILY 01/26/18 03/04/18 valsartan 40 mg PO DAILY 01/26/18 03/04/18 Previous Rx's Medication Instructions Recorded oxycodone-acetaminophen 1 tab PO Q4H PRN #42 tab 02/28/18 Allergies Allergy/AdvReac Type Severity Reaction Status Date / Time azithromycin Allergy Severe Shortness Verified 03/04/18 09:53 of Breath cephalexin Allergy Severe Itching Verified 03/04/18 09:53 diphenhydramine Allergy Severe Rash Verified 03/04/18 09:53 doxycycline Allergy Severe Shortness Verified 03/04/18 09:53 of Breath ibuprofen Allergy Severe Rash Verified 03/04/18 09:53 minocycline Allergy Severe Shortness Verified 03/04/18 09:53 of Breath penicillin G Allergy Severe Shortness Verified 03/04/18 09:53 of Breath Sulfa (Sulfonamide Allergy Severe Rash Verified 03/04/18 09:53 Antibiotics) tigecycline Allergy Severe Shortness Verified 03/04/18 09:53 of Breath vilanterol Allergy Severe Dizziness Verified 03/04/18 09:53 bromide salts Allergy Shortness Verified 03/04/18 09:53 of Breath tiotropium Allergy Dizziness Verified 03/04/18 09:53 fluticasone AdvReac Severe Dizziness Verified 03/04/18 09:53 fluticasone furoate AdvReac Severe Dizziness Verified 03/04/18 09:53 salmeterol AdvReac Severe Dizziness Verified 03/04/18 09:53 ciprofloxacin AdvReac Intermediate Nausea/Vomi Verified 03/04/18 09:53 ting Review of Systems ROS: all other systems reviewed are negative [facility] Social History Social History Substance History: No History of Abuse Second Hand Smoke Exposure: No Smoking Status: Never smoker How Often Do You Have a Drink Containing Alcohol: 2 to 4 times a month Recent Travel in [facility] within the Last 8 Weeks: No Recent Out of Country Travel within the Last 8 Weeks: No Immunization History Tetanus Immunization: >5 Years Hx Influenza Vaccine This Season: No Exam Narrative Exam Narrative: GENERAL: No acute distress. SKIN: Focused skin assessment warm/dry. HEAD: Atraumatic. Normocephalic. EYES: Pupils equal and round. No scleral icterus. No injection or drainage. ENT: No nasal bleeding or discharge. Mucous membranes pink and moist. NECK: Trachea midline. No JVD. CARDIOVASCULAR: Regular rate and rhythm. No murmur appreciated. RESPIRATORY: No accessory muscle use. Clear to auscultation. Breath sounds equal bilaterally. GASTROINTESTINAL: Abdomen soft, non-tender, nondistended. Hepatic and splenic margins not palpable. MUSCULOSKELETAL: No obvious deformities. No clubbing. No cyanosis. No edema. Positive surgical scar right shoulder and right upper extremity in sling. NEUROLOGICAL: Awake and alert. No obvious cranial nerve deficits. Motor grossly within normal limits. Normal speech. PSYCHIATRIC: Appropriate mood and affect; insight and judgment normal. Course Initial Documented Vital Signs Temperature 99 F 03/04/18 09:50 Pulse Rate 97 H 03/04/18 09:50 Respiratory Rate 20 03/04/18 09:50 Blood Pressure 142/81 H 03/04/18 09:50 Pulse Oximetry 98 03/04/18 09:50 Last Documented Vital Signs Temperature 98.0 F 03/04/18 18:24 Pulse Rate 98 H 03/04/18 18:24 Respiratory Rate 18 03/04/18 18:25 Blood Pressure 142/81 H 03/04/18 18:24 Pulse Oximetry 97 03/04/18 18:24 Medical Decision Making [facility] Narrative Medical decision making narrative: Patient presents to the emergency department complaining of chest pain. Patient placed on teletypesetter monitor, continuous pulse ox, and IV access obtained. Chest x-ray/EKG/labs were ordered in triage and resulted. I have added on a 3 hour repeat EKG and cardiac enzymes. Patient states she is having chest pain currently and will give NTG 0.4mg SL. Labs: normal cbc, coags, chem-BUN and glucose increased, potassium decreased, troponin wnl-> given 20MEQ KCL po repeat 3 hr cardiac enzymes-CK increased, troponin wnl. Patient given 1 NTG which decreased her pain to 2/10, written for an additional NTG. 2nd ECG SR, rate 97, no EJ 1614: Patient chest pain free, 1 in NTG to chest wall. D dimer elevated, CTA pending. Repeat ECG: Rate 130, RBBB, LAFB CTA chest: CONCLUSION:1. Negative for central pulmonary emboli.2. Large hiatal hernia.3. Multiple stable small pulmonary nodules. 1800: patient remained chest pain free in ER. Asked for pain med for shoulder, written for 1 norco 5/325mg po. 1826: Patient's reamer hand is Dr Candelario, and Dr. Kingston is covering. Spoke to Dr Kingston, who advised to send to chest pain center. Of note, patient had 3 sets of cardiac enzymes and ECGs done in triage and ER. 3rd ECG sinus tachy at 100, no EJ/STD 1909: 3rd set cardiac enzymes show normal troponin, CPK decreased from prior, normal MB. Patient admitted to chest pain center. Medical Screen Exam Complete: Yes Emergency Medical Condition: Yes Differential Diagnosis Differential Diagnosis: ACS, TIA, CVA, HTN urgency/emergency, PNA, musculoskeletal chest pain Lab Data Result diagrams: 03/04/18 11:10 03/04/18 11:10 Lab Results 03/04/18 03/04/18 03/04/18 Range/Units 11:10 11:10 11:10 WBC 10.2 (4.0-11.0) th/mm3 RBC 4.39 (4.00-5.30) mil/mm3 Hgb 14.1 (11.6-15.3) gm/dL Hct 41.8 (35.0-46.0) % MCV 95.2 (80.0-100.0) fL MCH 32.0 (27.0-34.0) pg MCHC 33.7 (32.0-36.0) % RDW 13.6 (11.6-17.2) % Plt Count 328 (150-450) th/mm3 MPV 8.3 (7.0-11.0) fL Neut % (Auto) 69.8 (16.0-70.0) % Lymph % (Auto) 20.0 (9.0-44.0) % Gillespie % (Auto) 7.9 (0.0-8.0) % Eos % (Auto) 1.5 (0.0-4.0) % Baso % (Auto) 0.8 (0.0-2.0) % Neut # (Auto) 7.1 (1.8-7.7) th/mm3 Lymph # (Auto) 2.0 (1.0-4.8) th/mm3 Gillespie # (Auto) 0.8 (0.0-0.9) th/mm3 Eos # (Auto) 0.2 (0.0-0.4) th/mm3 Baso # (Auto) 0.1 (0.0-0.2) th/mm3 WBC Differential . Differential Comment Auto diff final PT 10.3 (9.8-11.6) sec INR 1.0 Ratio APTT 27.9 (24.3-30.1) sec D-Dimer Quant (PE/DVT) (0.00-0.50) mg/L FEU Sodium 140 (136-145) meq/L Potassium 3.4 L (3.5-5.1) meq/L Chloride 101 (98-107) meq/L Carbon Dioxide 31.9 (21.0-32.0) meq/L Anion Gap 7 (5-15) meq/L BUN 20 H (7-18) mg/dL Creatinine 0.95 (0.50-1.00) mg/dL Estimated GFR 58 L (>89) mL/min Random Glucose 147 H (74-106) mg/dL Lactic Acid (0.4-2.0) mmol/L Calcium 9.4 (8.5-10.1) mg/dL Total Creatine Kinase (26-192) U/L CK-MB (CK-2) (0.5-3.6) ng/mL CK-MB (CK-2) % (0.0-4.0) % Troponin I Less than 0.02 L (0.02-0.05) ng/mL Urine Color (Yellw/Straw) Urine Clarity (Clear) Urine pH (5.0-8.5) Ur Specific [place] (1.002-1.035) Urine Protein (Neg-Trace) mg/dL Urine Glucose (UA) (Negative) mg/dL Urine Ketones (Negative) mg/dL Urine Occult Blood (Negative) Urine Nitrate (Negative) Urine Bilirubin (Negative) Urine Urobilinogen (Less than 2) mg/dL Ur Leukocyte Esterase (Negative) Urine RBC (0-3) /hpf Urine WBC (0-5) /hpf Ur Squamous Epith Cells (0-5) /hpf Micro UA Comment Ur Microscopic Review Urine Culture Comments 03/04/18 03/04/18 03/04/18 Range/Units 11:10 14:10 14:10 WBC (4.0-11.0) th/mm3 RBC (4.00-5.30) mil/mm3 Hgb (11.6-15.3) gm/dL Hct (35.0-46.0) % MCV (80.0-100.0) fL MCH (27.0-34.0) pg MCHC (32.0-36.0) % RDW (11.6-17.2) % Plt Count (150-450) th/mm3 MPV (7.0-11.0) fL Neut % (Auto) (16.0-70.0) % Lymph % (Auto) (9.0-44.0) % Gillespie % (Auto) (0.0-8.0) % Eos % (Auto) (0.0-4.0) % Baso % (Auto) (0.0-2.0) % Neut # (Auto) (1.8-7.7) th/mm3 Lymph # (Auto) (1.0-4.8) th/mm3 Gillespie # (Auto) (0.0-0.9) th/mm3 Eos # (Auto) (0.0-0.4) th/mm3 Baso # (Auto) (0.0-0.2) th/mm3 WBC Differential Differential Comment PT (9.8-11.6) sec INR Ratio APTT (24.3-30.1) sec D-Dimer Quant (PE/DVT) 1.97 H (0.00-0.50) mg/L FEU Sodium (136-145) meq/L Potassium (3.5-5.1) meq/L Chloride (98-107) meq/L Carbon Dioxide (21.0-32.0) meq/L Anion Gap (5-15) meq/L BUN (7-18) mg/dL Creatinine (0.50-1.00) mg/dL Estimated GFR (>89) mL/min Random Glucose (74-106) mg/dL Lactic Acid 0.7 (0.4-2.0) mmol/L Calcium (8.5-10.1) mg/dL Total Creatine Kinase (26-192) U/L CK-MB (CK-2) (0.5-3.6) ng/mL CK-MB (CK-2) % (0.0-4.0) % Troponin I Less than 0.02 L (0.02-0.05) ng/mL Urine Color (Yellw/Straw) Urine Clarity (Clear) Urine pH (5.0-8.5) Ur Specific [place] (1.002-1.035) Urine Protein (Neg-Trace) mg/dL Urine Glucose (UA) (Negative) mg/dL Urine Ketones (Negative) mg/dL Urine Occult Blood (Negative) Urine Nitrate (Negative) Urine Bilirubin (Negative) Urine Urobilinogen (Less than 2) mg/dL Ur Leukocyte Esterase (Negative) Urine RBC (0-3) /hpf Urine WBC (0-5) /hpf Ur Squamous Epith Cells (0-5) /hpf Micro UA Comment Ur Microscopic Review Urine Culture Comments 03/04/18 03/04/18 03/04/18 Range/Units 14:10 16:50 18:00 WBC (4.0-11.0) th/mm3 RBC (4.00-5.30) mil/mm3 Hgb (11.6-15.3) gm/dL Hct (35.0-46.0) % MCV (80.0-100.0) fL MCH (27.0-34.0) pg MCHC (32.0-36.0) % RDW (11.6-17.2) % Plt Count (150-450) th/mm3 MPV (7.0-11.0) fL Neut % (Auto) (16.0-70.0) % Lymph % (Auto) (9.0-44.0) % Gillespie % (Auto) (0.0-8.0) % Eos % (Auto) (0.0-4.0) % Baso % (Auto) (0.0-2.0) % Neut # (Auto) (1.8-7.7) th/mm3 Lymph # (Auto) (1.0-4.8) th/mm3 Gillespie # (Auto) (0.0-0.9) th/mm3 Eos # (Auto) (0.0-0.4) th/mm3 Baso # (Auto) (0.0-0.2) th/mm3 WBC Differential Differential Comment PT (9.8-11.6) sec INR Ratio APTT (24.3-30.1) sec D-Dimer Quant (PE/DVT) (0.00-0.50) mg/L FEU Sodium (136-145) meq/L Potassium (3.5-5.1) meq/L Chloride (98-107) meq/L Carbon Dioxide (21.0-32.0) meq/L Anion Gap (5-15) meq/L BUN (7-18) mg/dL Creatinine (0.50-1.00) mg/dL Estimated GFR (>89) mL/min Random Glucose (74-106) mg/dL Lactic Acid (0.4-2.0) mmol/L Calcium (8.5-10.1) mg/dL Total Creatine Kinase 256 H 205 H (26-192) U/L CK-MB (CK-2) 1.0 (0.5-3.6) ng/mL CK-MB (CK-2) % 0.4 (0.0-4.0) % Troponin I Less than 0.02 L (0.02-0.05) ng/mL Urine Color Yellow (Yellw/Straw) Urine Clarity Clear (Clear) Urine pH 8.0 (5.0-8.5) Ur Specific [place] 1.017 (1.002-1.035) Urine Protein Negative (Neg-Trace) mg/dL Urine Glucose (UA) Negative (Negative) mg/dL Urine Ketones 20 (Negative) mg/dL Urine Occult Blood Negative (Negative) Urine Nitrate Negative (Negative) Urine Bilirubin Negative (Negative) Urine Urobilinogen Less than 2 (Less than 2) mg/dL Ur Leukocyte Esterase Negative (Negative) Urine RBC Less than 1 (0-3) /hpf Urine WBC 1 (0-5) /hpf Ur Squamous Epith Cells <1 (0-5) /hpf Micro UA Comment Culture not ind Ur Microscopic Review Not Reportable Urine Culture Comments Culture not ind Imaging Data Radiologist's impression: Chest X-Ray 03/04/18 09:57 CONCLUSION: Negative chest for acute disease. Head CT 03/04/18 13:51 CONCLUSION: 1. Negative for an acute process . Chest CTA 03/04/18 16:07 CONCLUSION: 1. Negative for central pulmonary emboli. 2. Large hiatal hernia. 3. Multiple stable small pulmonary nodules. ECG Data Attestation: I personally reviewed and interpreted this ECG as follows: (Sinus rhythm, rate 97, axis deviation, QTC 401, normal intervals, ) Discharge Plan Discharge Disposition Patient Disposition: 30 Still Patient Discharge Condition Condition: Stable Discharge Details Diagnosis: Chest pain Physicians Team ED Provider: Maile Guy Primary Care Provider: UNKNOWN, Attending Provider: Higinio Dooley Other Providers: [facility],Insurance Status ED Status: Admitted Observation Patient
--- NOTE | 2018-03-04 14:59 | CT ---
EXAM DATE: 03/04/2018 2:46 PM EDT AGE/SEX: 67 years / Female INDICATIONS: Nausea, vomiting and fever. CLINICAL DATA: This is the patient's initial encounter. Patient reports that signs and symptoms have been present for 1 day and indicates a pain score of 0/10. MEDICAL/SURGICAL HISTORY: Hypertension. Diabetes. Asthma. Atrial fibrillation, kidney disease. Tubal ligation. Loop recorder. RADIATION DOSE: 33.47 CTDI (mGy) COMPARISON: [facility], CT BRAIN W/O CONTRAST, 03/06/2017. . TECHNIQUE: CT of the head without contrast. Using automated exposure control and adjustment of the mA and/or kV according to patient size, radiation dose was kept as low as reasonably achievable to ob tain optimal diagnostic quality images. DICOM format image data is available electronically for revi ew and comparison. FINDINGS: Cerebrum: The ventricles are normal for age. No evidence of midline shift, mass lesion, hemorrhage or acute infarction. No extraaxial fluid collections are seen. Posterior Fossa: The cerebellum and brainstem are intact. The 4th ventricle is midline. The cerebe llopontine angle is unremarkable. Extracranial: The visualized portion of the orbits is intact. Skull: The calvaria is intact. No evidence of skull fracture. CONCLUSION: 1. Negative for an acute process . Electronically signed by: Anuj Fields MD 03/04/2018 2:57 PM EDT
[2018-03-04 15:27] LABS: CKMB Percent 0.4 % (0.0-4.0)
[2018-03-04] MEDS ORDERED: Sodium Chlor 0.9% Inj 500 ML IV.SIG ONE (16:07)
[2018-03-04 17:26] LABS: Bilirubin,Urine Negative (Negative); Clarity,Urine Clear (Clear); Color,Urine Yellow (Yellw/Straw); Glucose,Urine (UA) Negative (Negative); Leukocyte Esterase,Urine Negative (Negative); Nitrite,Urine Negative (Negative); Specific Gravity,Urine 1.017 (1.002-1.035); Squamous Epithelial Cell,Urine <1 /hpf (0-5)
--- NOTE | 2018-03-04 17:41 | CT ---
EXAM DATE: 03/04/2018 5:36 PM EDT AGE/SEX: 67 years / Female INDICATIONS: Fever, nausea, vomiting since shoulder replacement five days ago. CLINICAL DATA: This is the patient's initial encounter. Patient reports that signs and symptoms have been present for 4 - 6 days and indicates a pain score of 1/10. MEDICAL/SURGICAL HISTORY: Hypertension. Asthma. Diabetes. Afib, chronic kidney disease. Cholecy stectomy. Tubal ligation. Loop recorder, right shoulder replacement. RADIATION DOSE: 22.66 CTDI (mGy) COMPARISON: [facility], CT CHEST W/O CONTRAST, 10/11/2016. . TECHNIQUE: Volumetric scanning was performed using a multi-row detector CT scanner during bolus infu tylor of 75 ml Omnipaque 350 (iohexol) nonionic water-soluble contrast as a single exam dose. The gudelia a was post processed with a variety of visualization algorithms including full volume maximum intensi ty projection and sliding thin slab reformation. Using automated exposure control and adjustment of t he mA and/or kV according to patient size, radiation dose was kept as low as reasonably achievable to obtain optimal diagnostic quality images. DICOM format image data is available electronically for r eview and comparison. FINDINGS: Pulmonary Arteries: There is no evidence for central pulmonary emboli. Lun numerous to count pulmonary nodules in both lungs that would be consistent with the patient' s history of sarcoidosis. Effusion: No pleural effusion. Mediastinum: There is no pericardial effusion. There is no mediastinal adenopathy. Large hiatal kevin ia. Other: The axilla is unremarkable. CONCLUSION: 1. Negative for central pulmonary emboli. 2. Large hiatal hernia. 3. Multiple stable small pulmonary nodules. Electronically signed by: Anuj Fields MD 03/04/2018 5:40 PM EDT
[2018-03-04] MEDS ORDERED: Potassium Chloride 10 MEQ ER Capsule PO ONE (18:31)
[2018-03-04 19:05] LABS: Creatine Kinase 205 U/L (26-192)
[2018-03-04 19:17] LABS: CKMB Percent 0.5 % (0.0-4.0)
--- NOTE | 2018-03-04 21:18 | ECG ---
Date Performed: 03/04/2018 Time Performed: 10:02:45 PTAGE: 67 years EKG: Sinus rhythm WITH SINUS ARRHYTHMIA LOW QRS VOLTAGE IN PRECORDIAL LEADS LEFT ANTERIOR FASCICULAR BLOCK POSSIBLE AN TERIOR MYOCARDIAL INFARCTION ABNORMAL ECG PREVIOUS TRACING : 02/23/2018 11.44 Since the previous tracing, no significant change noted DOCTOR: Wesley Khoury Interpretating Date/Time 03/04/2018 21:16:58
--- NOTE | 2018-03-05 07:56 | ECG ---
Date Performed: 03/04/2018 Time Performed: 15:47:40 PTAGE: 67 years EKG: SINUS TACHYCARDIA RIGHT BUNDLE BRANCH BLOCK LEFT ANTERIOR FASCICULAR BLOCK ABNORMAL ECG Com pared to PREVIOUS TRACING , now tachycardic and RBBB PREVIOUS TRACIN03/04/2018 10.02 DOCTOR: Brenda Candelario Interpretating Date/Time 03/05/2018 07:56:10
--- NOTE | 2018-03-05 07:59 | ECG ---
Date Performed: 03/04/2018 Time Performed: 18:17:04 PTAGE: 67 years EKG: SINUS TACHYCARDIA WITH OCCASIONAL SUPRAVENTRICULAR PREMATURE COMPLEXES PATTERN CONSISTENT W ITH PULMONARY DISEASE LEFT ANTERIOR FASCICULAR BLOCK ABNORMAL ECG Compared to PREVIOUS TRACING , RBBB resolved and may be rate related PREVIOUS TRACIN03/04/2018 15. 47 DOCTOR: Brenda Candelario Interpretating Date/Time 03/05/2018 07:58:30
--- NOTE | 2018-03-05 08:50 | P.HPCA ---
History of Present Illness Primary Care Physician: UNKNOWN Chief Complaint: Chest pain History of Present Illness: This is a 67-year-old female the presents to ED with history of diabetes, hypertension, hyperlipidemia, episode of atrial relation with an ablation in June 2017, CVAs that presents to ED to be evaluated for chest discomfort. States that she began having chest discomfort in the left, center, and right side of her chest. States that last just a short while but cannot be more specific. Found certain movements seem to bring on the discomfort. Recently had right shoulder surgery 6 days ago and is not sure if this is the cause. She had a little bit of nausea and had subjective fever. Does not recall shortness of breath or diaphoresis. Her warfarin was withheld prior to surgery but she restarted it 3 days ago. Upon reviewing her records, statin therapy is not on her medication list. Patient states she will not take it. When asked why. She states she understands importance of it but does not want to take it. - Diagnosis (1) Chest pain (2) Hypertension (3) Hyperlipidemia (4) Diabetes (5) Status post reverse total arthroplasty of right shoulder Review of Systems General: Subjective fever. Patient denies recent travel. HEENT: Patient denies headache, sore throat, difficulty swallowing. Cardiovascular: Has the chest discomfort as mentioned above. Denies sensation of heart beating rapidly or irregularly. No syncope. Denies diaphoresis. Respiratory: Denies shortness of breath or inspirational chest discomfort. Denies coughing wheezing or hemoptysis. GI: She was nauseous. Patient denies vomiting, diarrhea, abdominal pain, bloody stools. Musculoskeletal: Right shoulder pain, had recent right shoulder surgery. Patient denies joint pain or edema. Denies calf pain or edema. Neurovascular: Patient denies numbness, tingling, weakness in extremities. Denies headache. Endocrine: Denies polyuria and polydipsia. Hematologic: Denies easy bruising. Skin: Denies rash or itching. PMFSH - History History Provided By: Patient - Medical History Medical History: Medical History (Last Reviewed 03/04/18 @ 13:46 by Aline Sparks) Afib Asthma Chronic kidney disease (CKD) Diabetes Fibromyalgia H/O hiatal hernia History of ovarian cyst Hypertension Hypothyroidism Lung nodule Recent urinary tract infection - Surgical History Surgical History: Surgical History (Last Reviewed 03/04/18 @ 13:46 by Aline Sparks) H/O carpal tunnel repair H/O decompression of ulnar nerve H/O lymph node biopsy H/O tubal ligation History of arthroplasty of left ankle History of arthroscopy of right shoulder History of cholecystectomy History of loop recorder History of lung biopsy History of repair of hiatal hernia Hx of appendectomy S/P removal of right ovary S/P thyroid biopsy S/P trigger finger release - Tobacco History Second Hand Smoke Exposure: No Tobacco Use In Past 30 Days: No Smoking Status: Never smoker - Alcohol History How Often Do You Have a Drink Containing Alcohol: Monthly or less - Substance Use History Substance History: No History of Abuse - Travel History Recent Travel in the [place] Within the Last 8 Weeks: No Recent Travel Out of the Country Within the Last 8 Weeks: No - Immunization History Tetanus Immunization: >5 Years Hx Influenza Vaccine This Season: No Medications and Allergies Active Medications: Active Medications Diltiazem HCl (Cardizem Cd 24hr) 180 mg PO BID YAJAIRA Furosemide (Lasix) 40 mg PO DAILY YAJAIRA Gabapentin (Neurontin) 400 mg PO HS YAJAIRA Insulin Human Regular (Novolin R Correctional Sugar Inj) 0 units SQ ACHS YAJAIRA; Protocol Oxycodone/Acetaminophen (Percocet 5/325 Mg) 1 tab PO Q4H PRN PRN Reason: PAIN SCALE 1 TO 10 Last Admin: 03/05/18 05:49 Dose: 1 tab Sodium Chloride (Ns Flush) 2 ml IV.FLUSH BID YAJAIRA Last Admin: 03/04/18 20:27 Dose: 2 ml Sodium Chloride (Ns Flush) 2 ml IV.FLUSH PRN PRN PRN Reason: FLUSH AFTER USING IV ACCESS Valsartan (Diovan) 40 mg PO DAILY [facility] Allergies Allergy/AdvReac Type Severity Reaction Status Date / Time azithromycin Allergy Severe Shortness Verified 03/04/18 09:53 of Breath cephalexin Allergy Severe Itching Verified 03/04/18 09:53 diphenhydramine Allergy Severe Rash Verified 03/04/18 09:53 doxycycline Allergy Severe Shortness Verified 03/04/18 09:53 of Breath ibuprofen Allergy Severe Rash Verified 03/04/18 09:53 minocycline Allergy Severe Shortness Verified 03/04/18 09:53 of Breath penicillin G Allergy Severe Shortness Verified 03/04/18 09:53 of Breath Sulfa (Sulfonamide Allergy Severe Rash Verified 03/04/18 09:53 Antibiotics) tigecycline Allergy Severe Shortness Verified 03/04/18 09:53 of Breath vilanterol Allergy Severe Dizziness Verified 03/04/18 09:53 bromide salts Allergy Shortness Verified 03/04/18 09:53 of Breath tiotropium Allergy Dizziness Verified 03/04/18 09:53 fluticasone AdvReac Severe Dizziness Verified 03/04/18 09:53 fluticasone furoate AdvReac Severe Dizziness Verified 03/04/18 09:53 salmeterol AdvReac Severe Dizziness Verified 03/04/18 09:53 ciprofloxacin AdvReac Intermediate Nausea/Vomi Verified 03/04/18 09:53 ting Home Medications Medication Instructions Recorded Confirmed Type cholecalciferol (vitamin D3) 1,000 units PO DAILY 01/19/18 03/04/18 History [Vitamin D3] diltiazem HCl [Cardizem CD] 180 mg PO BID 01/19/18 03/04/18 History furosemide 40 mg PO DAILY 01/19/18 03/04/18 History gabapentin 400 mg PO HS 01/19/18 03/04/18 History [id number]-bic-cxae-st 1 tab PO DAILY 01/19/18 03/04/18 History [Glucosamine Chondroitin PLUS] insulin detemir U-100 [Levemir 12 unit SUB-Q BID 01/19/18 03/04/18 History U-100 Insulin] magnesium 100 mg PO DAILY 01/19/18 03/04/18 History melatonin 10 mg PO HS PRN 01/19/18 03/04/18 History multivitamin with iron [One Daily 1 tab PO DAILY 01/19/18 03/04/18 History Multi-Vit w-Mineral] vitamin B complex [B-Complex] 1 tab PO DAILY 01/19/18 03/04/18 History warfarin 5 mg PO 2XWEEK 01/19/18 03/04/18 History warfarin 7.5 mg PO QTUTHSA 01/19/18 03/04/18 History chromium-brindal peck [Garcinia 1 tab PO BID 01/26/18 03/04/18 History Cambogia] glucosamine sulfate 1,000 mg PO DAILY 01/26/18 03/04/18 History valsartan 40 mg PO DAILY 01/26/18 03/04/18 History Exam Vital signs: Vital Signs 03/04/18 09:50 03/04/18 13:45 03/04/18 13:50 Temperature 99 F 98.3 F Pulse Rate 97 H 97 H Respiratory Rate 20 20 Blood Pressure 142/81 H 179/95 H Pulse Oximetry 98 98 96 03/04/18 14:00 03/04/18 14:10 03/04/18 15:00 Temperature 98.2 F 98.1 F Pulse Rate 69 98 H Respiratory Rate 18 17 20 Blood Pressure 168/79 H 168/72 H Pulse Oximetry 100 96 03/04/18 15:25 03/04/18 16:00 03/04/18 17:55 Temperature 98.3 F 97.8 F Pulse Rate 123 H 96 H Respiratory Rate 17 20 18 Blood Pressure 173/84 H 163/85 H Pulse Oximetry 96 97 03/04/18 18:13 03/04/18 18:24 03/04/18 18:25 Temperature 97.8 F 98.0 F Pulse Rate 98 H 98 H Respiratory Rate 16 20 18 Blood Pressure 140/84 142/81 H Pulse Oximetry 96 97 03/04/18 19:00 03/04/18 20:00 03/04/18 23:14 Temperature 98.5 F Pulse Rate 99 H 96 H 102 H Respiratory Rate 20 20 Blood Pressure 138/80 144/88 H Pulse Oximetry 98 93 L 03/04/18 23:35 03/05/18 04:15 Temperature Pulse Rate 94 H 80 Respiratory Rate Blood Pressure Pulse Oximetry Intake & Output 03/04/18 03/05/18 03/05/18 18:59 06:59 18:59 Intake Total 500 / 500 Output Total 600 / 600 Balance -100 / -100 Weight 86.636 kg Intake: IV 500 / 500 NS Inj 500 ML @ Wide Open IV. 500 / 500 SIG BOLUS ONE Rx#:[id number] Output: Urine 600 / 600 Other: # Urine Diapers 1 Narrative: GENERAL: This is a well-nourished, well-developed patient, in no apparent distress. Patient speaks in clear complete sentences. Patient is pleasant. HEENT: Head is atraumatic and normocephalic. Neck is supple without lymphadenopathy and trachea is midline. No JVD or carotid bruits. CARDIOVASCULAR: Regular rate and rhythm without murmurs, gallops, or rubs. RESPIRATORY: Clear to auscultation. Breath sounds equal bilaterally. No wheezes , rales, or rhonchi. Chest wall is tender in multiple areas but does not truly feel similar to the discomfort that brought her to the ED. No use of accessory muscles. GASTROINTESTINAL: Abdomen is nontender, nondistended. Abdomen soft. No obvious pulsatile mass or bruit. No CVA tenderness. Strong femoral pulses bilaterally. Normal bowel sounds in all quadrants. MUSCULOSKELETAL: Range of motion right arm not attempted as recent surgery. Healing incision along the anterior aspect without signs of erythema. No drainage. There is discomfort with range of motion of her left arm. No calf tenderness or edema, no Homans sign. Strong pulses in upper and lower extremities. NEUROLOGICAL: Patient is alert and oriented. Cranial nerves 2-12 are grossly intact. No focal deficits and speech is clear. SKIN: No rash and turgor is normal. Results 03/04/18 11:10 03/04/18 11:10 Cardiac Enzymes 03/04/18 03/04/18 03/04/18 Range/Units 11:10 14:10 14:10 CK-MB (CK-2) 1.0 (0.5-3.6) ng/mL Troponin I Less than 0.02 L Less than 0.02 L (0.02-0.05) ng/mL 03/04/18 Range/Units 18:00 CK-MB (CK-2) Less than 1.0 (0.5-3.6) ng/mL Troponin I Less than 0.02 L (0.02-0.05) ng/mL Coagulation 03/04/18 Range/Units 11:10 PT 10.3 (9.8-11.6) sec APTT 27.9 (24.3-30.1) sec CBC 03/04/18 Range/Units 11:10 WBC 10.2 (4.0-11.0) th/mm3 RBC 4.39 (4.00-5.30) mil/mm3 Hgb 14.1 (11.6-15.3) gm/dL Hct 41.8 (35.0-46.0) % Plt Count 328 (150-450) th/mm3 Neut # (Auto) 7.1 (1.8-7.7) th/mm3 Lymph # (Auto) 2.0 (1.0-4.8) th/mm3 [place] # (Auto) 0.8 (0.0-0.9) th/mm3 Eos # (Auto) 0.2 (0.0-0.4) th/mm3 Baso # (Auto) 0.1 (0.0-0.2) th/mm3 Comprehensive Metabolic Panel 03/04/18 Range/Units 11:10 Sodium 140 (136-145) meq/L Potassium 3.4 L (3.5-5.1) meq/L Chloride 101 (98-107) meq/L Carbon Dioxide 31.9 (21.0-32.0) meq/L BUN 20 H (7-18) mg/dL Creatinine 0.95 (0.50-1.00) mg/dL Calcium 9.4 (8.5-10.1) mg/dL Intake and Output 03/04/18 03/05/18 03/05/18 22:59 06:59 14:59 Intake Total 500 / 500 Output Total 600 / 600 Balance -100 / -100 Intake: IV 500 / 500 NS Inj 500 ML @ Wide Open IV. 500 / 500 SIG BOLUS ONE Rx#:[id number] Output: Urine 600 / 600 Other: # Urine Diapers 1 EKG interpretations - EKG EKG shows: tachycardia (EKGs have been sinus rhythm to sinus tachycardia. Second EKG also had right bundle branch block which may be rate related as was not present on first or third when that were not tachycardic.), sinus rhythm Caprini VTE Risk Assessment Caprini VTE Risk Assessment: Moderate/High Risk (score >= 2) Caprini Risk Assessment Model: Point Value = 1 Point Value = 2 Point Value = 3 Point Value = 5 Age 41-60 Minor surgery BMI > 25 kg/m2 Swollen legs Varicose veins or History of unexplained or recurrent spontaneous Oral contraceptives or hormone replacement Sepsis (< 1 month) Serious lung disease, including pneumonia (< 1 month) Abnormal pulmonary function Acute myocardial infarction Congestive heart failure (< 1 month) History of inflammatory bowel disease Medical patient at bed rest Age 61-74 Arthroscopic surgery Major open surgery (> 45 min) Laparoscopic surgery (> 45 min) Malignancy Confined to bed (> 72 hours) Immobilizing plaster cast Central venous access Age >= 75 History of VTE Family history of VTE Factor V Leiden Prothrombin [id number] Lupus anticoagulant Anticardiolipin antibodies Elevated serum homocysteine Heparin-induced thrombocytopenia Other congenital or acquired thrombophilia Stroke (< 1 month) Elective arthroplasty Hip, pelvis, or leg fracture Acute spinal cord injury (< 1 month) Prophylaxis Regimen: Total Risk Factor Score Risk Level Prophylaxis Regimen 0-1 Low Early ambulation 2 Moderate Order ONE of the following: *Sequential Compression Device (SCD) *Heparin 5000 units SQ BID 3-4 Higher Order ONE of the following medications: *Heparin 5000 units SQ TID *Enoxaparin/Lovenox 40 mg SQ daily (WT < 150 kg, CrCl > 30 mL/min) *Enoxaparin/Lovenox 30 mg SQ daily (WT < 150 kg, CrCl > 10-29 mL/min) *Enoxaparin/Lovenox 30 mg SQ BID (WT < 150 kg, CrCl > 30 mL/min) AND/OR *Sequential Compression Device (SCD) 5 or more Highest Order ONE of the following medications: *Heparin 5000 units SQ TID (Preferred with Epidurals) *Enoxaparin/Lovenox 40 mg SQ daily (WT < 150 kg, CrCl > 30 mL/min) *Enoxaparin/Lovenox 30 mg SQ daily (WT < 150 kg, CrCl > 10-29 mL/min) *Enoxaparin/Lovenox 30 mg SQ BID (WT < 150 kg, CrCl > 30 mL/min) AND *Sequential Compression Device (SCD) Assessment and Plan - Assessment (1) Chest pain Code(s): R07.9 - Chest pain, unspecified Status: Acute (2) Hypertension Code(s): I10 - Essential (primary) hypertension Status: Acute (3) Hyperlipidemia Code(s): E78.5 - Hyperlipidemia, unspecified Status: Acute (4) Diabetes Code(s): E11.9 - Type 2 diabetes mellitus without complications Status: Acute (5) Status post reverse total arthroplasty of right shoulder Code(s): Z96.611 - Presence of right artificial shoulder joint Status: Acute - Plan * Chest pain: Patient has had serial cardiac enzymes and EKGs for ruling out purposes. She was seen by Dr. Candelario whom also follows her in the outpatient setting. She was able to review records and the patient had a nonischemic stress test September 2016 but also an EF of 67%. Patient will have a Lexiscan at this visit and be discharge if the stress test is nonischemic with instructions to follow-up with her insurance associate and PCP. Return to ED for interval issues. * Hypertension: Continue current medication. * Diabetes: Patient will be on sliding scale insulin coverage while in chest pain center. Resume medication at discharge. She needs to discuss statin therapy with her PCP but has right now patient is adamantly refusing taking the medication. * Hyperlipidemia: Patient states she refuses to take cholesterol medicine but will not elaborate on to the reason why. * History of A. fib: Patient restarted her warfarin therapy. She is to follow- up with her physician monitors her INR levels. Patient is stable at this time. She is agreeable to this plan. H&P: Quality - VTE Deep Vein Thrombosis/Pulmonary Embolism Present on Admission: No (1) Chest pain Qualifiers: Chest pain type: unspecified Qualified Code(s): R07.9 - Chest pain, unspecified
[2018-03-05] MEDS ORDERED: Furosemide 40 MG Tablet PO SCH (09:00)
[2018-03-05] MEDS ORDERED: dilTIAZem CD 180 MG Capsule PO SCH (09:00)
[2018-03-05] MEDS ORDERED: VALSARTAN 40 MG PO SCH (09:00)
[2018-03-05] MEDS ORDERED: Regadenoson Inj 0.4 MG/5 ML Syringe IV.PUSH ONE (11:09)
--- NOTE | 2018-03-05 12:13 | NM ---
EXAM DATE: 03/05/2018 12:02 PM EDT AGE/SEX: 67 years / Female INDICATIONS:Angina. Atrial fibrillation Left sided chest pain. CLINICAL DATA: This is the patient's initial encounter. Patient reports that signs and symptoms have been present for 1 day and indicates a pain score of 3/10. MEDICAL/SURGICAL HISTORY: Diabetes mellitus type II. Hypertension. Renal disease. Tubal ligat ion. Cholecystectomy. COMPARISON: No prior exams available for comparison. DOSE: 8.7 mCi Tc 99m Myoview at rest 26.3 mCi [id number] at stress 0.4 mg Lexiscan STRESS SYMPTOMS: Stomach cramping, flushing, chest tightness, shortness of breath. EJECTION FRACTION: 43 % TECHNIQUE: The patient underwent pharmacologic stress with infusion of prescribed dose. Continuous ECG tracing was monitored during stress. Gated SPECT imaging was performed after stress and conventi onal SPECT imaging was performed at rest. The examination was performed on a SPECT/CT scanner, both attenuation and non-corrected datasets were reviewed. FINDINGS: Distribution: The maximum perfused segment at stress is in the anterior wall. Perfusion Study: Matched defect along the inferior wall with some mild reversibility. Gated Study: Dyskinetic segment along the inferior wall. The ejection fraction is calculated at 43% . RISK CATEGORY: High (>3% Annual Morality Rate) CONCLUSION: 1. There appears to be an infarct along the inferior wall with probable mild amy-infarct ischemia. 2. Ejection fraction 43%. Electronically signed by: Ad Warren MD 03/05/2018 12:11 PM EDT
[2018-03-05] MEDS: Insulin NovoLIN Regular Correctional Sugar Inj SQ SCH ×2 (12:30→17:30)
--- NOTE | 2018-03-05 17:19 | TR ---
Date Performed: 03/05/2018 Time Performed: 11:06:09 DOCTOR: Brenda Candelario DRUG LIST: CLINICAL HISTORY: REASON FOR TEST: REASON FOR ENDING: OBSERVATION: CONCLUSION: Lexiscan stress test was performed under standard four minute protocol. Radionuclid e was injected one minute prior to ending the test. No electrocardiographic abormalities were present to suggest ischemia. Nuclear imaging and interpretation are pending. COMMENTS: no [email or web address]
[2018-03-05] MEDS ORDERED: Gabapentin 400 MG Capsule PO SCH (21:00)
== END 2018-03-05 18:37 | disposition home or self-care (01) ==
LOC: NEPC 09:39 → NEDA 09:39 → NEPHCDU 22:05
PROVIDERS: ADMIT Internal Medicine Cardiovascular Disease; ATTEND Internal Medicine Cardiovascular Disease